=== PATIENT | male | born 1935 | race Caucasian/White ===

== ENCOUNTER → 2016-07-08 | Outpatient (CLI) | payer OTHER ==
[~2016-07-08] MED LIST: ALBU1AER9; ALFU10TA30 PO; BENZ100C6 PO; DICL1GEL28; LANS30CA12 PO; LEVO150T22 PO; OMEG10007 PO; POLY335040 PO; SIMV20TA2 PO; TPRSR/25 PO; TRAM-10 PO; WARF2.5T8 PO; WARF5TAB7 PO
[2016-07-08 12:47] LABS: BASO % 0.6 %; BASO ABS # 0.05 K/uL (0-0.2); COMPLETE YES; EOS % 1.5 %; IG% 0.4 %; LYMPH % 19.4 %; LYMPH ABS # 1.53 K/uL (1.2-3.4); MEAN CELL VOLUME 90.1 fL (80-100); MEAN CORPUSCULAR HEMOGLOBIN 31.6 pg (25-34); MEAN CORPUSCULAR HGB CONC 35.1 g/dl (32-36); MONO % 5.6 %; NEUT % 72.5 %; PLATELET COUNT 178 K/uL (130-400); RED BLOOD COUNT 4.55 M/uL (4.7-6.1)
[2016-07-08 13:07] LABS: ALB/GLOB RATIO 1.1 (0.9-2); ALKALINE PHOSPHATASE 60 U/L (45-117); ALT/SGPT 19 U/L (12-78); AST/SGOT 14 U/L (15-37); BLOOD UREA NITROGEN 14 mg/dl (7-18); CALCIUM 8.7 mg/dl (8.5-10.1); CARBON DIOXIDE 26 mmol/L (21-32); CHLORIDE 106 mmol/L (98-107); GLUCOSE 122 mg/dl (70-99); POTASSIUM 4.1 mmol/L (3.5-5.1); SODIUM 142 mmol/L (136-145)
== END | disposition home or self-care (01) ==
LOC: C.LABBFT 11:00
PROVIDERS: ATTEND Internal Medicine Hematology & Oncology
DX: D69.3 Immune thrombocytopenic purpura (principal)

== ENCOUNTER → 2016-09-02 | Outpatient (CLI) | payer OTHER ==
[~2016-09-02] MED LIST changes: +ACET-1256 PO; +ALBU18002 PO; +ALFU10TA2 PO; -ALFU10TA30 PO; +CMD/25 PO; +ENOX120I SQ; +FINA5TAB PO; +FLUT0.15 NAE; +HYDR-3983 PO; +LVNIS100; +MRLP17 PO; +PHEN-775 PO; +SYN150 PO
[2016-09-02 17:37] LABS: ALT/SGPT 18 U/L (12-78); AST/SGOT 14 U/L (15-37); BLOOD UREA NITROGEN 18 mg/dl (7-18); BUN/CREATININE RATIO 18.2 (10-20); CALCIUM 8.8 mg/dl (8.5-10.1); CARBON DIOXIDE 28 mmol/L (21-32); CHLORIDE 106 mmol/L (98-107); GLUCOSE 93 mg/dl (70-99); POTASSIUM 4.4 mmol/L (3.5-5.1); SODIUM 141 mmol/L (136-145)
[2016-09-02 17:49] LABS: ALB/GLOB RATIO 1.2 (0.9-2); ALKALINE PHOSPHATASE 66 U/L (45-117); CHOLESTEROL 141 mg/dl (0-200); CHOLESTEROL/HDL RATIO 2.9; HDL CHOLESTEROL 49 mg/dl; LDL CHOLESTEROL CALCULATED 59 mg/dl; TRIGLYCERIDES 163 mg/dl (0-150); VERY LOW DENSITY LIPOPROT CALC 33 mg/dl
[2016-09-03 06:14] LABS: ESTIMATED AVERAGE GLUCOSE 114 mg/dl; HA1C FLAG Normal (Normal)
== END | disposition home or self-care (01) ==
LOC: C.LABBFT 13:29
PROVIDERS: ATTEND Internal Medicine
DX: E78.00 Pure hypercholesterolemia, unspecified (principal); R73.01 Impaired fasting glucose; E05.00 Thyrotoxicosis with diffuse goiter without thyrotoxic crisis or storm

== ENCOUNTER → 2016-11-06 | Outpatient (CLI) | payer OTHER ==
[~2016-11-06] MED LIST changes: -ACET-1256 PO; -ALBU18002 PO; -ALFU10TA2 PO; +ALFU10TA30 PO; -CMD/25 PO; -ENOX120I SQ; -FINA5TAB PO; -FLUT0.15 NAE; -HYDR-3983 PO; -LVNIS100; -MRLP17 PO; -PHEN-775 PO; -SYN150 PO
[2016-11-06 12:30] LABS: BASO % 0.5 %; BASO ABS # 0.04 K/uL (0-0.2); COMPLETE YES; EOS % 1.8 %; HEMATOCRIT 42.9 % (42-52); IG% 0.2 %; LYMPH ABS # 1.55 K/uL (1.2-3.4); MEAN CELL VOLUME 92.5 fL (80-100); MEAN CORPUSCULAR HGB CONC 33.6 g/dl (32-36); MEAN PLATELET VOLUME 10.1 fL (7.4-10.4); MONO % 7.5 %; PLATELET COUNT 170 K/uL (130-400); RED BLOOD COUNT 4.64 M/uL (4.7-6.1); WHITE BLOOD COUNT 8.17 K/uL (4.8-10.8)
[2016-11-06 12:49] LABS: ALT/SGPT 20 U/L (12-78); BLOOD UREA NITROGEN 14 mg/dl (7-18); BUN/CREATININE RATIO 14.4 (10-20); CALCIUM 9.2 mg/dl (8.5-10.1); CARBON DIOXIDE 27 mmol/L (21-32); CHLORIDE 107 mmol/L (98-107); GLUCOSE 100 mg/dl (70-99); POTASSIUM 4.2 mmol/L (3.5-5.1); SODIUM 140 mmol/L (136-145)
[2016-11-06 12:52] LABS: ALB/GLOB RATIO 1.1 (0.9-2); ALKALINE PHOSPHATASE 70 U/L (45-117); AST/SGOT 16 U/L (15-37)
== END | disposition home or self-care (01) ==
LOC: C.LABBFT 10:12
PROVIDERS: ATTEND Nurse Practitioner
DX: D69.3 Immune thrombocytopenic purpura (principal)

== ENCOUNTER → 2017-02-10 | Outpatient (CLI) | payer OTHER ==
[2017-02-10 17:38] LABS: BASO % 0.5 %; BASO ABS # 0.05 K/uL (0-0.2); COMPLETE YES; EOS % 2.1 %; HEMATOCRIT 41.1 % (42-52); IG% 0.3 %; LYMPH % 17.7 %; LYMPH ABS # 1.83 K/uL (1.2-3.4); MEAN CELL VOLUME 92.2 fL (80-100); MEAN CORPUSCULAR HEMOGLOBIN 31.6 pg (25-34); MEAN CORPUSCULAR HGB CONC 34.3 g/dl (32-36); MEAN PLATELET VOLUME 9.6 fL (7.4-10.4); MONO % 7.9 %; NEUT % 71.5 %; PLATELET COUNT 217 K/uL (130-400); RED BLOOD COUNT 4.46 M/uL (4.7-6.1); WHITE BLOOD COUNT 10.31 K/uL (4.8-10.8)
[2017-02-10 18:03] LABS: ALT/SGPT 13 U/L (12-78); AST/SGOT 10 U/L (15-37); BLOOD UREA NITROGEN 17 mg/dl (7-18); CALCIUM 9.3 mg/dl (8.5-10.1); CARBON DIOXIDE 27 mmol/L (21-32); CHLORIDE 104 mmol/L (98-107); GLUCOSE 99 mg/dl (70-99); POTASSIUM 4.8 mmol/L (3.5-5.1); SODIUM 138 mmol/L (136-145)
[2017-02-10 18:05] LABS: ALB/GLOB RATIO 0.9 (0.9-2); ALKALINE PHOSPHATASE 79 U/L (45-117)
== END | disposition home or self-care (01) ==
LOC: C.LABBFT 14:51
PROVIDERS: ATTEND Internal Medicine
DX: R60.9 Edema, unspecified (principal)

== ENCOUNTER 2017-02-18 13:16 | Emergency (ER) | payer OTHER ==
[~2017-02-18] VITALS: Ht 180.3 cm; Wt 106.2 kg
[2017-02-18 13:19] VITALS: TEMP 36.6; Ht 180.3 cm; Wt 106.2 kg
[2017-02-18] MEDS ORDERED: ONDANSETRON INJ 2 MG/ML 2 ML VIAL IV STA (13:54)
[2017-02-18] MEDS ORDERED: MoRPHine SULFATE 4 MG/ML 1 ML CARP\\VIAL IV STA (13:54)
[2017-02-18 13:58] LABS: BASO % 0.2 %; BASO ABS # 0.03 K/uL (0-0.2); COMPLETE YES; HEMATOCRIT 38.3 % (42-52); IG% 0.3 %; LYMPH % 11.8 %; LYMPH ABS # 1.44 K/uL (1.2-3.4); MEAN CELL VOLUME 90.5 fL (80-100); MEAN CORPUSCULAR HEMOGLOBIN 31.7 pg (25-34); MEAN PLATELET VOLUME 9.1 fL (7.4-10.4); MONO % 5.9 %; NEUT % 80.8 %; PLATELET COUNT 211 K/uL (130-400); RED BLOOD COUNT 4.23 M/uL (4.7-6.1); WHITE BLOOD COUNT 12.21 K/uL (4.8-10.8)
[2017-02-18 14:08] LABS: URINE APPEARANCE CLEAR (CLEAR); URINE BILIRUBIN NEG (NEG); URINE COLOR YELLOW; URINE NITRITE NEG (NEG); URINE SPECIFIC GRAVITY 1.016 (1.000-1.030); UROBILINOGEN NEG (NEG)
[2017-02-18 14:11] LABS: MANUAL MICROSCOPIC REQUIRED? NO; REVIEW REQ? NO
[2017-02-18 14:15] LABS: BUN/CREATININE RATIO 10.8 (10-20); CALCIUM 8.7 mg/dl (8.5-10.1); CREATININE 1.08 mg/dl (0.60-1.40); POTASSIUM 3.9 mmol/L (3.5-5.1)
--- NOTE | 2017-02-18 14:26 | DIAGNOSTIC IMAGING REPORT ---
CT SCAN OF THE ABDOMEN AND PELVIS WITHOUT CONTRAST CLINICAL HISTORY: Flank pain COMPARISON STUDY: No previous studies for comparison. TECHNIQUE: CT scan of the abdomen and pelvis was performed from the lung bases to the proximal femurs. Images are reviewed in the axial, sagittal, and coronal planes. IV contrast was not administered for this examination. A dose lowering technique was utilized adhering to the principles of ALARA. CT DOSE: FINDINGS: Lower chest: There are nonspecific bibasilar somewhat nodular airspace opacities there are no significant pleural effusions. The heart is enlarged. There is a small pericardial effusion. Liver: There is a 16 mm right lobe hepatic hypodensity likely representing a cyst Gallbladder: Unremarkable. Spleen: Normal in size and attenuation. Pancreas: Unremarkable. Adrenal glands: Unremarkable. Kidneys: There is mild bilateral hydronephrosis and hydroureter, possibly secondary to bladder outlet obstruction and a distended bladder. No calculi are visualized. There is a 13 mm right renal hypodensity likely representing a cyst Bowel: There are no transition zones indicate bowel obstruction. There is pandiverticulosis. There is no acute diverticulitis. There are no findings to indicate acute appendicitis Peritoneum: There is no intraperitoneal free air or abdominal ascites. There is a fat-containing left inguinal hernia. Vasculature: The abdominal aorta is normal in course and caliber. Adenopathy: None. Pelvic viscera: The prostate is enlarged measuring 7 cm transversely. The bladder is distended and there is mild perivesical stranding. Skeletal structures: No destructive osseous lesions are seen. IMPRESSION: 1. Mild bilateral hydronephrosis and hydroureter. No calculi identified 2. Mildly distended urinary bladder. Prostate enlargement. 3. Pandiverticulosis. No evidence of acute diverticulitis 4. Fat-containing left inguinal hernia 5. 16 mm hypodense lesion within the right hepatic lobe likely representing a cyst 6. Bilateral lower lobe nodular airspace opacities. Does this patient have signs or symptoms of pneumonia? Clinical and radiographic follow-up is recommended Electronically signed by: Angelo Ramos M.D. 02/18/2017 2:24 PM Dictated Date/Time: 02/18/2017 2:17 PM
--- NOTE | 2017-02-18 14:27 | DIAGNOSTIC IMAGING REPORT ---
LUMBAR SPINE WITHOUT CLINICAL HISTORY: Lower back pain. Flank pain. Evaluate for fracture. COMPARISON STUDY: Lumbar spine radiograph November 10, 2015. FINDINGS: For purposes of numbering on this exam, the L5-S1 disc space is assigned to axial image 308 of 353. Slight anterolisthesis of L3 on L4 is unchanged since exam of November 10, 2015. There is minimal leftward curvature of the lumbar spine. No acute lumbar spine fracture or suspicious lesion is identified by CT. The central canal and neural foramen are suboptimally assessed given CT technique. Paravertebral soft tissues are unremarkable. Mild multilevel disc space narrowing and osteophytosis is noted with vacuum disc phenomenon at L3-L4. There is suspected moderate central canal stenosis at L3-L4 and L4-L5. IMPRESSION: 1. No acute lumbar spine fracture or subluxation. 2. 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 Suboptimal evaluation of the central canal and neural foramen given CT technique. Suspected moderate central canal stenosis at L3-L4 and L4-L5. Electronically signed by: Mateusz Fisher M.D. 02/18/2017 2:25 PM Dictated Date/Time: 02/18/2017 2:19 PM
[2017-02-18] MEDS ORDERED: LIDOCAINE HCL 2% JELLY 30 ML TUBE EXT ONE (14:56)
[2017-02-18] MEDS ORDERED: FLUT0.15 NAE (15:10)
[2017-02-18] MEDS ORDERED: HYDR-3983 PO (15:10)
[2017-02-18] MEDS ORDERED: ACET-1256 PO (15:10)
[2017-02-18 16:17] LABS: INR 1.1 (0.9-1.1); PROTHROMBIN TIME (PATIENT) 11.9 SECONDS (9.0-12.0)
[2017-02-18 16:58] VITALS: BP 142/85; PULSE 67; O2SAT 95
--- NOTE | 2017-02-18 19:49 | EMERGENCY ROOM VISIT NOTE ---
History Report prepared by Drake: Odin Ruby Under the Supervision of: Dr. Alexandr Lyman M.D. First contact with patient: 13:26 Chief Complaint: URINARY SYMPTOMS Stated Complaint: DIFFICULT URINATION/BACK PAIN Nursing Triage Summary: Pt states he is having painful and difficult urination and severe bilateral back pain. Symptoms since last night. History of Present Illness The patient is a 81 year old male who presents to the Emergency Room with complaints of waxing and waning bilateral lower back pain beginning yesterday. He describes his pain as "sharp". His pain does not radiate. The patient's pain is not worsened with movement. He also complains of urinary symptoms. His urinary symptoms include increased frequency and pain with urination. 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 He denies vomiting, fevers, or diarrhea. He is on Coumadin but stopped taking it 5 days ago because of his procedure. He was supposed to be started today. Source of History: patient Onset: Yesterday Position: back (bilateral lower) Quality: sharp Timing: waxes/wanes Associated Symptoms: + abdominal pain, + urinary symptoms (burning and increased frequency), No fevers, No vomiting, No diarrhea Review of Systems See HPI for pertinent positives & negatives. A total of 10 systems reviewed and were otherwise negative. Past Medical & Surgical Medical Problems: (1) COPD (chronic obstructive pulmonary disease) Family History Patient reports no known family medical history. Social History Smoking Status: Former Smoker Drug Use: none Marital Status: Occupation Status: retired Current/Historical Medications Scheduled Albuterol (Proair Hfa), 2 PUFFS Q4 Alfuzosin Hcl (Uroxatral), 10 MG PO QPM Fish Oil ([place]-3), 1 CAP PO DAILY Fluticasone Propionate (Nasal) (Flonase Allergy Relief), 1 SPRAY ROSINA DAILY Lansoprazole (Prevacid), 30 MG PO BID Levothyroxine (Levothroid), 0.15 MG PO DAILY Metoprolol Succinate (Metoprolol Succinate ER), 25 MG PO DAILY Polyethylene (Miralax Powder Packet), 17 GM PO BID Simvastatin (Zocor), 20 MG PO QPM Warfarin Sod (Jantoven), 2.5 MG PO DAILY Scheduled PRN Acetaminophen (Tylenol), 500 MG PO Q6 PRN for Pain Hydrocodone/Acetaminophen 7.5MG/325MG ([place] 7.5MG/325MG), 1 TAB PO Q6 PRN for Pain Allergies Coded Allergies: No Known Allergies (Verified , 02/18/17) Physical Exam Vital Signs Date Time Temp Pulse Resp B/P (MAP) Pulse Ox O2 Delivery O2 Flow Rate FiO2 02/18/17 16:58 67 18 142/85 95 Room Air 02/18/17 16:33 67 02/18/17 15:57 72 20 137/78 94 Room Air 02/18/17 14:19 44 18 146/92 96 Room Air 02/18/17 13:19 36.6 63 18 154/84 92 Room Air Physical Exam Constitutional: Vital signs reviewed. Eyes: Pupils are equal round reactive to light. Conjunctiva are noninjected. ENT: Pharynx is clear without erythema or exudate. Mucous membranes are moist. Post-surgical changes under tongue to the left side. No bleeding. No signs of infection or drainage. Neck supple without meningeal signs. Respiratory: Clear to auscultation bilaterally. Breath sounds are equal bilaterally. Cardiovascular: Irregularly irregular rhythm. Normal rate. No rubs or gallops. GI: Suprapubic tenderness to palpation. No guarding. Bowel sounds are present. Musculoskeletal: No peripheral edema. No CVA tenderness. No midline tenderness to the thoracic or lumbar spine. Integumentary: No cyanosis. Neurological: The patient is awake and alert. No focal deficits. Psychiatric: Normal affect. Medical Decision & Procedures ER Provider Diagnostic Interpretation: Radiology results as stated below per my review and the radiologist's interpretation: LUMBAR SPINE WITHOUT FINDINGS: For purposes of numbering on this exam, the L5-S1 disc space is assigned to axial image 308 of 353. Slight anterolisthesis of L3 on L4 is unchanged since exam of November 10, 2015. There is minimal leftward curvature of the lumbar spine. No acute lumbar spine fracture or suspicious lesion is identified by CT. The central canal and neural foramen are suboptimally assessed given CT technique. Paravertebral soft tissues are unremarkable. Mild multilevel disc space narrowing and osteophytosis is noted with vacuum disc phenomenon at L3-L4. There is suspected moderate central canal stenosis at L3-L4 and L4-L5. IMPRESSION: 1. No acute lumbar spine fracture or subluxation. 2. 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 Suboptimal evaluation of the central canal and neural foramen given CT technique. Suspected moderate central canal stenosis at L3-L4 and L4-L5. Electronically signed by: Mateusz Fisher M.D. 02/18/2017 2:[address] SCAN OF THE ABDOMEN AND PELVIS WITHOUT CONTRAST FINDINGS: Lower chest: There are nonspecific bibasilar somewhat nodular airspace opacities there are no significant pleural effusions. The heart is enlarged. There is a small pericardial effusion. Liver: There is a 16 mm right lobe hepatic hypodensity likely representing a cyst Gallbladder: Unremarkable. Spleen: Normal in size and attenuation. Pancreas: Unremarkable. Adrenal glands: Unremarkable. Kidneys: There is mild bilateral hydronephrosis and hydroureter, possibly secondary to bladder outlet obstruction and a distended bladder. No calculi are visualized. There is a 13 mm right renal hypodensity likely representing a cyst Bowel: There are no transition zones indicate bowel obstruction. There is pandiverticulosis. There is no acute diverticulitis. There are no findings to indicate acute appendicitis Peritoneum: There is no intraperitoneal free air or abdominal ascites. There is a fat-containing left inguinal hernia. Vasculature: The abdominal aorta is normal in course and caliber. Adenopathy: None. Pelvic viscera: The prostate is enlarged measuring 7 cm transversely. The bladder is distended and there is mild perivesical stranding. Skeletal structures: No destructive osseous lesions are seen. IMPRESSION: 1. Mild bilateral hydronephrosis and hydroureter. No calculi identified 2. Mildly distended urinary bladder. Prostate enlargement. 3. Pandiverticulosis. No evidence of acute diverticulitis 4. Fat-containing left inguinal hernia 5. 16 mm hypodense lesion within the right hepatic lobe likely representing a cyst 6. Bilateral lower lobe nodular airspace opacities. Does this patient have signs or symptoms of pneumonia? Clinical and radiographic follow-up is recommended Electronically signed by: Angelo Ramos M.D. 02/18/2017 2:24 PM Laboratory Results 02/18/17 13:50 Red Blood Count 4.23, Mean Corpuscular Volume 90.5, Mean Corpuscular Hemoglobin 31.7, Mean Corpuscular Hemoglobin Concent 35.0, Mean Platelet Volume 9.1, Neutrophils (%) (Auto) 80.8, Lymphocytes (%) (Auto) 11.8, Monocytes (%) (Auto) 5.9, Eosinophils (%) (Auto) 1.0, Basophils (%) (Auto) 0.2, Neutrophils # (Auto) 9.86, Lymphocytes # (Auto) 1.44, Monocytes # (Auto) 0.72, Eosinophils # (Auto) 0.12, Basophils # (Auto) 0.03 02/18/17 13:50 Test 02/18/17 13:50 White Blood Count 12.21 K/uL (4.8-10.8) Red Blood Count 4.23 M/uL (4.7-6.1) Hemoglobin 13.4 g/dL (14.0-18.0) Hematocrit 38.3 % (42-52) Mean Corpuscular Volume 90.5 fL (80-100) Mean Corpuscular Hemoglobin 31.7 pg (25-34) Mean Corpuscular Hemoglobin Concent 35.0 g/dl (32-36) Platelet Count 211 K/uL (130-400) Mean Platelet Volume 9.1 fL (7.4-10.4) Neutrophils (%) (Auto) 80.8 % Lymphocytes (%) (Auto) 11.8 % Monocytes (%) (Auto) 5.9 % Eosinophils (%) (Auto) 1.0 % Basophils (%) (Auto) 0.2 % Neutrophils # (Auto) 9.86 K/uL (1.4-6.5) Lymphocytes # (Auto) 1.44 K/uL (1.2-3.4) Monocytes # (Auto) 0.72 K/uL (0.11-0.59) Eosinophils # (Auto) 0.12 K/uL (0-0.5) Basophils # (Auto) 0.03 K/uL (0-0.2) RDW Standard Deviation 42.9 fL (36.4-46.3) RDW Coefficient of Variation 13.0 % (11.5-14.5) Immature Granulocyte % (Auto) 0.3 % Immature Granulocyte # (Auto) 0.04 K/uL (0.00-0.02) Prothrombin Time 11.9 SECONDS (9.0-12.0) Prothromb Time International Ratio 1.1 (0.9-1.1) Urine Color YELLOW Urine Appearance CLEAR (CLEAR) Urine pH 5.0 (4.5-7.5) Urine Specific [place] 1.016 (1.000-1.030) Urine Protein NEG (NEG) Urine Glucose (UA) NEG (NEG) Urine Ketones NEG (NEG) Urine Occult Blood NEG (NEG) Urine Nitrite NEG (NEG) Urine Bilirubin NEG (NEG) Urine Urobilinogen NEG (NEG) Urine Leukocyte Esterase NEG (NEG) Anion Gap 7.0 mmol/L (3-11) Est Creatinine Clear Calc Drug Dose 67.6 ml/min Estimated GFR () 74.7 Estimated GFR (Non- 64.5 BUN/Creatinine Ratio 10.8 (10-20) Calcium Level 8.7 mg/dl (8.5-10.1) Total Bilirubin 0.7 mg/dl (0.2-1) Direct Bilirubin 0.1 mg/dl (0-0.2) Aspartate Amino Transf (AST/SGOT) 17 U/L (15-37) Alanine Aminotransferase (ALT/SGPT) 10 U/L (12-78) Alkaline Phosphatase 72 U/L (45-117) Total Protein 7.1 gm/dl (6.4-8.2) Albumin 3.5 gm/dl (3.4-5.0) Lipase 101 U/L (73-393) Laboratory results as reviewed by me. Medications Administered Medications (Trade) Dose Ordered Sig/Meera Route Start Time Stop Time Status Last Admin Dose Admin Morphine Sulfate (MoRPHine SULFATE INJ) 4 mg NOW STAT IV 02/18/17 13:54 02/18/17 13:55 DC 02/18/17 13:59 4 MG Ondansetron HCl (Zofran Inj) 4 mg NOW STAT IV 02/18/17 13:54 02/18/17 13:55 DC 02/18/17 14:00 4 MG Lidocaine HCl (Xylocaine Jelly 2%) 30 ml STK-MED ONCE EXT 02/18/17 14:56 02/18/17 14:57 DC 02/18/17 14:56 30 ML ECG Indication: other (PVC's seen on the monitor) Rate (beats per minute): 68 Rhythm: sinus rhythm Findings: PVC (frequent), RBBB Comparison ECG Date: October 19, 2015 Change: 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 ED Course 1328: The patient was evaluated in room C3. A complete history and physical exam was performed. 1354: The patient is requesting pain medication. Ordered Zofran Inj 4 mg IV, Morphine Sulfate 4 mg IV. 1455: I reassessed the patient. He is having worsening pain. He is only able to urinate small amounts at a time. His bladder scan shows significant urine. The patient notes that he just urinated recently. 1545: I checked in on the patient. He feels a lot better after having a Russell catheter placed. There is some blood noted in the urine in his urine bag. Roughly 600 cc of urine in the bag. The patient states that he is on Coumadin for A-fib, but notes that he does not been taking it for the past five days due to recent surgery. He states that he did not notice any blood in his urine prior to the placement of the catheter. 1656: I reexamined the patient. His urine appears clear. His back pain and abdominal pain are resolved. I discussed his results and the treatment plan with him. He verbalized agreement and understanding. The patient will follow up with his urologist and PCP. I advised him to hold off on taking his Coumadin for an additional day. The patient is ready for discharge. Medical Decision This is an 81-year-old male who presents with bilateral flank pain and dysuria. Differential diagnosis includes kidney stone, UTI, prostatitis, pyelonephritis , lumbar radiculopathy. I did perform a limited focused review of portions of the patient's old chart on the electronic medical record. The patient had blood work eight days ago which was relatively unremarkable. I did evaluate the patient as noted above. IV access was established. I did treat patient with IV morphine and Zofran. I did order and personally review the patient's 12-lead EKG and urinalysis as described above. I did order and review the patient's blood work as noted in the electronic medical record. His white blood cell count is slightly elevated which is a nonspecific finding. I did order a CT of the abdomen and pelvis and lumbar sacral spine. I did review the images myself as well as the radiology report as described above. He does have some incidental findings as discussed above. I did discuss the test results with the patient. He states he has no cold symptoms consistent with pneumonia. He has had no fevers. He is still complaining of significant pain in his back. A bladder scan was performed and showed significant amount of urine in his bladder despite recently urinating. I did order a Russell catheter placed. The nurse did place a Russell catheter and unfortunately this caused some bleeding in his urine. His urine was blood tinged but it cleared up after some time. He did urinate 600 mL of urine and on reevaluation he felt much better. He no longer has any significant pain in his abdomen. It seems likely that his pain was caused by urinary retention. I did recommend close follow up with his doctor and urologist. He was discharged with the Russell catheter in place and a leg bag. He was told to hold off on his Coumadin for another day because of the recent bleeding from the Russell catheter. He will resume it tomorrow. He was discharged in good condition. Medication Reconcilliation Current Medication List: was personally reviewed by me Blood Pressure Screening Patient's blood pressure: Elevated blood pressure Blood pressure disposition: Referred to PCP Impression Primary Impression: Urinary retention Scribe Attestation The scribe's documentation has been prepared under my direct and personally reviewed by me in its entirety. I confirm that the note above accurately reflects all work, treatment, procedures, and medical decision making performed by me. Departure Information Dispostion Home / Self-Care Referrals Tanner Hartman M.D. (PCP) Forms HOME CARE DOCUMENTATION FORM, IMPORTANT VISIT INFORMATION Patient Instructions ED Catheter Care Russell, ED Retention Urinary Male, My [facility] Additional Instructions You have been examined and treated today on an emergency basis only. This is not a substitute for, or an effort to provide, complete comprehensive medical care. It is impossible to recognize and treat all injuries or illnesses in a single emergency department visit. It is therefore important that you follow up closely with your physician and urologist. Call as soon as possible for an appointment. Return for worsening symptoms or if you develop fever, vomiting, or any other concerning symptoms.
[2017-02-20] MEDS ORDERED: SYN150 PO (16:31)
[2017-02-20] MEDS ORDERED: MRLP17 PO (16:31)
[2017-02-20] MEDS ORDERED: ALBU18002 PO (16:31)
== END 2017-02-18 17:49 | disposition home or self-care (01) ==
LOC: C.EDB 13:18 → C.EDC 17:49
DX: R33.9 Retention of urine, unspecified (principal); J44.9 Chronic obstructive pulmonary disease, unspecified; Z87.891 Personal history of nicotine dependence; Z79.899 Other long term (current) drug therapy; Z79.01 Long term (current) use of anticoagulants; I48.91 Unspecified atrial fibrillation

== ENCOUNTER 2017-03-19 07:04 | Day surgery (SDC) | payer OTHER ==
[2017-02-27 15:51] VITALS: BMI 32.0
[~2017-03-19] VITALS: Ht 180.3 cm; Wt 104.5 kg
[~2017-03-19 07:04] MED LIST changes: +ACET-1256 PO; +ALBU18002 PO; -ALBU1AER9; +ALFU10TA2 PO; -ALFU10TA30 PO; -BENZ100C6 PO; -DICL1GEL28; +FLUT0.15 NAE; +LACTATED RINGER'S 1000ML 1,000 ML IV SCH; -LEVO150T22 PO; +MRLP17 PO; -POLY335040 PO; +SYN150 PO; -TRAM-10 PO; -WARF5TAB7 PO
[2017-03-19] MEDS ORDERED: LVNIS100 (07:25)
[2017-03-19 07:28] VITALS: BP 165/84; PULSE 56; TEMP 36.4; O2SAT 95; Ht 180.3 cm; Wt 104.5 kg
[2017-03-19] MEDS ORDERED: CIPROFLOXACIN 500 MG TAB PO SCH (07:30)
[2017-03-19] MEDS ORDERED: HYDROmorphone INJ 1 MG/ML SYR IV PRN (07:45)
[2017-03-19] MEDS ORDERED: ATROPINE SULFATE 0.1 MG/ML 5ML SYR IV PRN (07:45)
[2017-03-19] MEDS ORDERED: EpHEDrine SULFATE INJ 50 MG/ML AMP IV PRN (07:45)
[2017-03-19] MEDS ORDERED: LABETALOL HCL IV 5 MG/ML 20ML IV PRN (07:45)
[2017-03-19] MEDS ORDERED: ONDANSETRON INJ 2 MG/ML 2 ML VIAL IV PRN (07:45)
[2017-03-19] MEDS ORDERED: PHENYLEPHRINE 100MCG/ML 5ML SYR IV PRN (07:45)
[2017-03-19 08:02] LABS: INR 1.2 (0.9-1.1); PARTIAL THROMBOPLASTIN RATIO 1.2; PROTHROMBIN TIME (PATIENT) 13.3 SECONDS (9.0-12.0)
[2017-03-19] MEDS ORDERED: FENTANYL CITRATE INJ 50 MCG/1 ML 2 ML VIAL ONE (08:36)
--- NOTE | 2017-03-19 08:46 | History & Physical Bridge Note ---
H&P Re-Evaluation Bridge Note: I have examined the patient, reviewed the History & Physical and in the interval since the performance of the History & Physical I have noted the following changes of clinical significance: No changes noted
[2017-03-19] MEDS ORDERED: ONDANSETRON INJ 2 MG/ML 2 ML VIAL ONE (09:20)
[2017-03-19] MEDS ORDERED: METOPROLOL TARTRATE 1 MG/ML VIAL ONE (09:20)
[2017-03-19] MEDS ORDERED: LIDOCAINE HCL 2% 2 ML VIAL (20MG/ML) ONE (09:20)
[2017-03-19] MEDS ORDERED: PROPOFOL IV EMULSION 10 MG/ML 20 ML VIAL IV ONE (09:20)
[2017-03-19] MEDS ORDERED: NEOSTIGMINE METHYLSULFATE 5 MG/5 ML SYR ONE (09:32)
[2017-03-19] MEDS: BELLADONNA/OPIUM SUPP 60 MG SUPP PR ONE ×2 (10:00→10:35)
[2017-03-19] MEDS ORDERED: PHENYLEPHRINE 100MCG/ML 5ML SYR ONE (10:10)
[2017-03-19] MEDS ORDERED: BELLADONNA/OPIUM SUPP 60 MG SUPP PR ONE (10:31)
--- NOTE | 2017-03-19 10:48 | [facility] Operative Report ---
Operative Report Operative Date Mar 19, 2017. Pre-Operative Diagnosis Benign Prostatic Hyperplasia with Retention Post-Operative Diagnosis Benign Prostatic Hyperplasia with Retention Procedure(s) Performed Transuretheral Resection Prostate Surgeon Dr. Davey Building Components Designer Surgeon(s) none Estimated Blood Loss 100mL Findings short trilobar enlargement prostate Fluids 900mL Specimens A: Prostate chips Drains 20 fr coude moses Anesthesia LMA Complication(s) None Disposition Recovery Room / PACU Indications recurrent urinary retention with bph failed med therapy Description of Procedure Patient was given general LMA and placed in lithotomy position. His genitals were prepped and draped in sterile fashion. Time out held with team. I placed a 26 fr rigid resectoscope to bladder. The urethra is unremarkable. The prostate is trilobar with kissing lateral lobes. The UOs are normal. I used the thick loop to resect lateral and middle lobes. I spared most of apical tips. I rinsed out all chips and carefully obtained hemostasis with cautery. I left bladder full and removed scope I placed 20 fr coude moses easily. I placed a belladonna and opium suppository for post-op pain. He transferred to recovery under my escort, in stable condition. Plan: Home today with moses Pyridium for dysuria x 3 days to start friday hold lovenox for about 5 days ASA 3 clean contaminated case cipro antibiotic sanitation supervisor I attest to the content of the Intraoperative Record and any orders documented therein. Any exceptions are noted below.
[2017-03-19] MEDS ORDERED: PHEN-775 PO (10:49)
--- NOTE | 2017-03-19 10:50 | Discharge Instructions ---
Discharge Instructions Date of Service Mar 19, 2017. Admission Reason for Admission: Benign Prostatic Hypertrophy W/Retention Discharge Discharge Diagnosis / Problem: bph with urinary retention Discharge Goals Goal(s): Improve function, Improve disease control Activity Recommendations Activity Limitations: as noted below Lifting Limitations: no more than 25 pounds (vor 3 weeks) Exercise/Sports Limitations: none May Resume Sexual Activity: when tolerated Shower/Bathe: no limitations Driving or Machine Use: resume 1 day after discharge . Instructions / Follow-Up Instructions / Follow-Up hold lovenox for 5 days, then resume it and coumadin removed moses on Friday am call office [phone] by noon with any problems Current Hospital Diet Patient's current hospital diet: Discharge Diet Recommended Diet: Regular Diet Fluid Restriction: None Procedures Procedures Performed: Transuretheral Resection Prostate Pending Studies Studies pending at discharge: yes List of pending studies: pathology on prostate chips Medical Emergencies . Who to Call and When: Medical Emergencies: If at any time you feel your situation is an emergency, please call 911 immediately. . Non-Emergent Contact Non-Emergency issues call your: Urologist Call Non-Emergent contact if: temperature is above 100.5, your pain is worsening . . "Provider Documentation" section prepared by Christiana Davey. . VTE Core Measure Inpt VTE Proph given/why not?: SCD's
[2017-03-19] MEDS: FENTANYL CITRATE INJ 50 MCG/1 ML 2 ML VIAL IV PRN ×2 (10:52→10:59)
[2017-03-19] MEDS ORDERED: NURSING VERBAL MED ORDER ONE ×2 (10:58→12:00)
[2017-03-19] MEDS ORDERED: MEPERIDINE HCL 25 MG/ML CARP ONE (11:00)
--- NOTE | 2017-03-19 11:21 | Anesthesiology Progress Note ---
Anesthesia Post Op Note Date & Time Mar 19, 2017 at 11:21 Vital Signs Pain Intensity: 2 Vital Signs Past 12 Hours Date Time Temp Pulse Resp B/P (MAP) Pulse Ox O2 Delivery O2 Flow Rate FiO2 03/19/17 11:10 65 13 131/86 96 Room Air 03/19/17 11:00 66 18 139/82 100 Oxymask 10 03/19/17 10:50 65 16 135/83 99 Oxymask 03/19/17 10:42 36.2 74 15 142/66 95 Oxymask 03/19/17 07:28 36.4 56 16 165/84 (111) 95 Room Air Notes Mental Status: alert / awake / arousable, participated in evaluation Pt Amnestic to Procedure: Yes Nausea / Vomiting: adequately controlled Pain: adequately controlled Airway Patency, RR, SpO2: stable & adequate BP & HR: stable & adequate Hydration State: stable & adequate Anesthetic Complications: no major complications apparent
[2017-03-19 11:30] VITALS: BP 144/77; PULSE 64; TEMP 37; O2SAT 95
[2017-03-19] MEDS ORDERED: ACETAMINOPHEN 325 MG TAB ONE (11:53)
[2017-03-19 12:00] VITALS: BP 160/79; PULSE 64; O2SAT 96
[2017-03-19 12:30] VITALS: BP 130/70; PULSE 51; TEMP 37.1; O2SAT 97
== END 2017-03-19 12:48 | disposition home or self-care (01) ==
LOC: C.ACU 07:04
PROVIDERS: ATTEND Urology
DX: N40.1 Benign prostatic hyperplasia with lower urinary tract symptoms (principal); I48.91 Unspecified atrial fibrillation; I10 Essential (primary) hypertension; J44.9 Chronic obstructive pulmonary disease, unspecified; E66.9 Obesity, unspecified; Z68.32 Body mass index [BMI] 32.0-32.9, adult; Z79.01 Long term (current) use of anticoagulants; Z79.899 Other long term (current) drug therapy; Z90.89 Acquired absence of other organs

== ENCOUNTER 2017-03-29 03:54 | Emergency (ER) | payer OTHER ==
[~2017-03-29] VITALS: Ht 180.3 cm; Wt 99.9 kg
[~2017-03-29 03:54] MED LIST changes: -ALFU10TA2 PO; -LACTATED RINGER'S 1000ML 1,000 ML IV SCH; +PHEN-775 PO; -WARF2.5T8 PO
[2017-03-29 03:57] VITALS: TEMP 36.7; Ht 180.3 cm; Wt 99.9 kg
[2017-03-29] MEDS ORDERED: FINA5TAB PO (04:28)
[2017-03-29] MEDS ORDERED: CMD/25 PO (04:29)
[2017-03-29] MEDS ORDERED: ENOX120I SQ (04:30)
[2017-03-29 04:53] LABS: BASO % 0.6 %; BASO ABS # 0.05 K/uL (0-0.2); COMPLETE YES; IG% 0.6 %; LYMPH % 14.8 %; LYMPH ABS # 1.34 K/uL (1.2-3.4); MEAN CELL VOLUME 91.6 fL (80-100); MEAN CORPUSCULAR HEMOGLOBIN 31.1 pg (25-34); MEAN CORPUSCULAR HGB CONC 33.9 g/dl (32-36); MEAN PLATELET VOLUME 9.1 fL (7.4-10.4); MONO % 6.1 %; NEUT % 74.9 %; PLATELET COUNT 205 K/uL (130-400); RED BLOOD COUNT 4.15 M/uL (4.7-6.1); WHITE BLOOD COUNT 9.04 K/uL (4.8-10.8)
[2017-03-29 05:04] LABS: INR 1.1 (0.9-1.1); PARTIAL THROMBOPLASTIN RATIO 1.1; PROTHROMBIN TIME (PATIENT) 11.4 SECONDS (9.0-12.0)
[2017-03-29 05:09] LABS: CALCIUM 8.7 mg/dl (8.5-10.1); CREATININE 1.14 mg/dl (0.60-1.40); POTASSIUM 4.2 mmol/L (3.5-5.1)
[2017-03-29 05:17] LABS: MANUAL MICROSCOPIC REQUIRED? YES; URINE APPEARANCE CLOUDY (CLEAR); URINE BILIRUBIN NEG (NEG); URINE COLOR RED; URINE NITRITE NEG (NEG); URINE SPECIFIC GRAVITY 1.025 (1.000-1.030); UROBILINOGEN NEG (NEG)
[2017-03-29 05:21] LABS: REVIEW REQ? NO
[2017-03-29 05:35] LABS: URINE RBC >30 /hpf (0-4); URINE WBC >30 /hpf (0-5)
[2017-03-29 05:39] LABS: URINE BACTERIA NEG (NEG)
[2017-03-29 05:40] LABS: ZZUR CULT IF INDIC CLEAN CATCH YES
--- NOTE | 2017-03-29 06:32 | EMERGENCY ROOM VISIT NOTE ---
History First contact with patient: 04:09 Chief Complaint: URINARY SYMPTOMS Stated Complaint: BLOOD IN URINE S/P SURGERY Nursing Triage Summary: pt states he had a TURP completed 03/18, states he had a cath in for 2 days and has been able to urinate without difficulty since then. reports last night around 11pm he though urine appeared "pink." states he began to notice janice blood in urine through the night. states he has "just normal burning" with urination. denies n/v. pt was on coumadin pre procedure, now on coumadin and lovenox shots. History of Present Illness The patient is a 81 year old male who presents to the Emergency Room with complaints of blood in the urine. The patient states that he had a TURP procedure performed [address] Davey. He states that this evening, he noticed blood in his urine. Just prior to arrival, he urinated and states that the urine was very dark with blood. The patient takes Coumadin for atrial fibrillation. He is also on Lovenox at this time. He states there has been no blood in the urine up until now. He has had some burning with urination but states that he was told this was normal after the procedure he had performed. He denies any abdominal pain or back pain. He denies any fevers. Review of Systems A complete 10 point review of systems was reviewed with the patient with pertinent positives and negatives as per history of present illness. All else were negative. Past Medical/Surgical History Medical Problems: (1) COPD (chronic obstructive pulmonary disease) Family History Patient reports no known family medical history. Social History Smoking Status: Former Smoker Drug Use: none Marital Status: Occupation Status: retired Current/Historical Medications Scheduled Enoxaparin (Lovenox), 100 MG SQ DIRECTED Finasteride (Proscar), 5 MG PO DAILY Fish Oil ([place]-3), 1 CAP PO QDL Fluticasone Propionate (Nasal) (Flonase Allergy Relief), 1 SPRAY ROSINA QPM Lansoprazole (Prevacid), 30 MG PO BID Levothyroxine Sodium (Synthroid), 150 MCG PO QAM Metoprolol Succinate (Metoprolol Succinate ER), 25 MG PO QAM Polyethylene (Miralax), 17 GM PO BID Simvastatin (Zocor), 20 MG PO QPM Warfarin Sod (Coumadin), 2.5 MG PO DAILY Scheduled PRN Acetaminophen (Tylenol), 500 MG PO Q6 PRN for Pain Albuterol Sulfate (Proair Respiclick), 2 PUFFS PO Q4 PRN for Shortness of Breath Physical Exam Vital Signs Date Time Temp Pulse Resp B/P (MAP) Pulse Ox O2 Delivery O2 Flow Rate FiO2 03/29/17 06:36 64 18 152/92 94 03/29/17 05:57 65 18 166/90 97 Room Air 03/29/17 03:57 36.7 74 20 154/101 92 Room Air Physical Exam VITALS: Vitals are noted on the nurse's note and reviewed by myself. Vital signs stable. GENERAL: This is an 81-year-old male, in no acute distress, nondiaphoretic, well -developed well-nourished. HEART: Regular rate and rhythm without murmurs gallops or rubs. LUNGS: Clear to auscultation bilaterally without wheezes, rales or rhonchi. ABDOMEN: Positive bowel sounds x 4. Soft, nontender to palpation. NEURO: Patient was alert and oriented to person place and time. Medical Decision & Procedures Laboratory Results 03/29/17 04:41 Red Blood Count 4.15, Mean Corpuscular Volume 91.6, Mean Corpuscular Hemoglobin 31.1, Mean Corpuscular Hemoglobin Concent 33.9, Mean Platelet Volume 9.1, Neutrophils (%) (Auto) 74.9, Lymphocytes (%) (Auto) 14.8, Monocytes (%) (Auto) 6.1, Eosinophils (%) (Auto) 3.0, Basophils (%) (Auto) 0.6, Neutrophils # (Auto) 6.78, Lymphocytes # (Auto) 1.34, Monocytes # (Auto) 0.55, Eosinophils # (Auto) 0.27, Basophils # (Auto) 0.05 03/29/17 04:41 Test 03/29/17 04:25 03/29/17 04:41 Urine Color RED Urine Appearance CLOUDY (CLEAR) Urine pH 6.0 (4.5-7.5) Urine Specific [place] 1.025 (1.000-1.030) Urine Protein 3+ (NEG) Urine Glucose (UA) NEG (NEG) Urine Ketones NEG (NEG) Urine Occult Blood 3+ (NEG) Urine Nitrite NEG (NEG) Urine Bilirubin NEG (NEG) Urine Urobilinogen NEG (NEG) Urine Leukocyte Esterase NEG (NEG) Urine RBC >30 /hpf (0-4) Urine WBC >30 /hpf (0-5) Urine Epithelial Cells 10-20 /lpf (0-5) Urine Bacteria NEG (NEG) White Blood Count 9.04 K/uL (4.8-10.8) Red Blood Count 4.15 M/uL (4.7-6.1) Hemoglobin 12.9 g/dL (14.0-18.0) Hematocrit 38.0 % (42-52) Mean Corpuscular Volume 91.6 fL (80-100) Mean Corpuscular Hemoglobin 31.1 pg (25-34) Mean Corpuscular Hemoglobin Concent 33.9 g/dl (32-36) Platelet Count 205 K/uL (130-400) Mean Platelet Volume 9.1 fL (7.4-10.4) Neutrophils (%) (Auto) 74.9 % Lymphocytes (%) (Auto) 14.8 % Monocytes (%) (Auto) 6.1 % Eosinophils (%) (Auto) 3.0 % Basophils (%) (Auto) 0.6 % Neutrophils # (Auto) 6.78 K/uL (1.4-6.5) Lymphocytes # (Auto) 1.34 K/uL (1.2-3.4) Monocytes # (Auto) 0.55 K/uL (0.11-0.59) Eosinophils # (Auto) 0.27 K/uL (0-0.5) Basophils # (Auto) 0.05 K/uL (0-0.2) RDW Standard Deviation 43.9 fL (36.4-46.3) RDW Coefficient of Variation 13.4 % (11.5-14.5) Immature Granulocyte % (Auto) 0.6 % Immature Granulocyte # (Auto) 0.05 K/uL (0.00-0.02) Prothrombin Time 11.4 SECONDS (9.0-12.0) Prothromb Time International Ratio 1.1 (0.9-1.1) Activated Partial Thromboplast Time 28.8 SECONDS (21.0-31.0) Partial Thromboplastin Ratio 1.1 Anion Gap 6.0 mmol/L (3-11) Est Creatinine Clear Calc Drug Dose 62.2 ml/min Estimated GFR () 70.0 Estimated GFR (Non- 60.4 BUN/Creatinine Ratio 15.0 (10-20) Calcium Level 8.7 mg/dl (8.5-10.1) ED Course The patient was evaluated as above. Labs were drawn and IV access was obtained. Case was discussed with Dr. Ballesteros of urology. He recommended performing a bladder scan to ensure that the patient was not retaining urine and discharge the patient to follow-up with Dr. Davey on Friday. Bladder scan showed a very small amount of urine within the bladder. Discharge instructions were reviewed with the patient. The patient verbalized understanding of my assessment and treatment plan and was discharged home in good condition. Medical Decision Differential diagnosis includes postoperative hematuria, supratherapeutic INR, urinary tract infection, among others. The patient is an 81-year-old male who presents today complaining of blood in his urine. The patient had a TURP procedure 10 days ago. Urinalysis showed 3+ blood without convincing evidence of infection. Culture will be obtained and is pending. INR was found to be 1.1. Creatinine is within normal limits. No leukocytosis. The case was discussed with the on-call urologist, who stated this can be normal for this patient and recommended having the patient follow up with urology on Friday. He did request a bladder scan to ensure that the patient was not in urinary retention. This was performed and showed a small amount of urine within the bladder. The patient will call his urologist first thing Friday morning. He will return for any worsening symptoms. The patient's case was reviewed with Dr. Cobian, ED attending physician, who agreed with my assessment and treatment plan. Based on the patient's presentation and work up, I feel the patient is stable for outpatient treatment. The patient was educated to return to the emergency department for any worsening of their current condition or new/concerning symptoms. He will follow up with urology. Medication Reconcilliation Current Medication List: was personally reviewed by me Blood Pressure Screening Patient's blood pressure: Elevated blood pressure Blood pressure disposition: Elevated BP felt to be situational Impression Primary Impression: Hematuria Departure Information Dispostion Home / Self-Care Condition GOOD Referrals Tanner Hartman M.D. (PCP) Christiana Davey MD Patient Instructions My [facility] Additional Instructions Follow-up with your urologist on Friday. Follow-up with your primary care provider regarding your Coumadin and Lovenox. Return here for any new/concerning symptoms. Problem Qualifiers Primary Impression: Hematuria Hematuria type: gross Qualified Codes: R31.0 - Gross hematuria
[2017-03-29 06:36] VITALS: BP 152/92; PULSE 64; O2SAT 94
== END 2017-03-29 06:36 | disposition home or self-care (01) ==
LOC: C.EDB 03:55 → C.EDA 06:36
DX: R31.0 Gross hematuria (principal); I48.91 Unspecified atrial fibrillation; J44.9 Chronic obstructive pulmonary disease, unspecified; Z87.891 Personal history of nicotine dependence; Z90.79 Acquired absence of other genital organ(s); Z79.01 Long term (current) use of anticoagulants

== ENCOUNTER → 2017-04-08 | Outpatient (CLI) | payer OTHER ==
[~2017-04-08] MED LIST changes: +CMD/25 PO; +ENOX120I SQ; +FINA5TAB PO; -PHEN-775 PO
[2017-04-08 12:33] LABS: BLOOD UREA NITROGEN 16 mg/dl (7-18); BUN/CREATININE RATIO 13.9 (10-20); CALCIUM 8.9 mg/dl (8.5-10.1); CARBON DIOXIDE 29 mmol/L (21-32); CHLORIDE 104 mmol/L (98-107); CREATININE 1.13 mg/dl (0.60-1.40); GLUCOSE 101 mg/dl (70-99); MAGNESIUM 2.2 mg/dl (1.8-2.4); PHOSPHORUS 2.1 mg/dl (2.5-4.9); POTASSIUM 4.2 mmol/L (3.5-5.1); SODIUM 136 mmol/L (136-145)
== END | disposition home or self-care (01) ==
LOC: C.LABBFT 09:56
PROVIDERS: ATTEND Internal Medicine
DX: M62.838 Other muscle spasm (principal)

== ENCOUNTER → 2017-05-12 | Outpatient (CLI) | payer OTHER ==
[2017-05-12 12:32] LABS: BASO % 0.3 %; BASO ABS # 0.03 K/uL (0-0.2); EOS ABS # 0.09 K/uL (0-0.5); HEMATOCRIT 42.8 % (42-52); HEMOGLOBIN 14.6 g/dL (14.0-18.0); IG# 0.03 K/uL (0.00-0.02); LYMPH % 19.4 %; LYMPH ABS # 1.77 K/uL (1.2-3.4); MEAN CELL VOLUME 91.3 fL (80-100); MEAN CORPUSCULAR HEMOGLOBIN 31.1 pg (25-34); MEAN CORPUSCULAR HGB CONC 34.1 g/dl (32-36); MEAN PLATELET VOLUME 9.8 fL (7.4-10.4); MONO % 7.3 %; MONO ABS # 0.67 K/uL (0.11-0.59); NEUT % 71.7 %; NEUT ABS # 6.54 K/uL (1.4-6.5); PLATELET COUNT 221 K/uL (130-400); RED CELL DISTRIBUTION WIDTH CV 14.1 % (11.5-14.5); RED CELL DISTRIBUTION WIDTH SD 46.9 fL (36.4-46.3); WHITE BLOOD COUNT 9.13 K/uL (4.8-10.8)
[2017-05-12 12:34] LABS: ALBUMIN 3.5 gm/dl (3.4-5.0); ALT/SGPT 14 U/L (12-78); AST/SGOT 16 U/L (15-37); BLOOD UREA NITROGEN 15 mg/dl (7-18); CALCIUM 8.9 mg/dl (8.5-10.1); CARBON DIOXIDE 29 mmol/L (21-32); CREATININE 1.03 mg/dl (0.60-1.40); GLUCOSE 89 mg/dl (70-99); POTASSIUM 4.3 mmol/L (3.5-5.1); SODIUM 136 mmol/L (136-145)
[2017-05-12 12:37] LABS: ALKALINE PHOSPHATASE 68 U/L (45-117); TOTAL PROTEIN 6.9 gm/dl (6.4-8.2)
== END | disposition home or self-care (01) ==
LOC: C.LABBFT 09:57
PROVIDERS: ATTEND Internal Medicine Hematology & Oncology
DX: M62.838 Other muscle spasm (principal); D69.3 Immune thrombocytopenic purpura

== ENCOUNTER → 2017-06-04 | Outpatient (CLI) | payer OTHER ==
[~2017-06-04] MED LIST changes: +CMD5 PO; +DTR/5 PO; +POTA99TA PO
== END | disposition home or self-care (01) ==
LOC: C.LABBFT 10:18
PROVIDERS: ATTEND Internal Medicine
DX: M62.838 Other muscle spasm (principal)

== ENCOUNTER → 2017-06-16 | Day surgery (SDC) | payer OTHER ==
[2017-06-04 13:26] VITALS: Ht 181.6 cm; Wt 100.0 kg
[~2017-06-16] VITALS: Ht 181.6 cm; Wt 100.0 kg
[~2017-06-16] MED LIST changes: -ACET-1256 PO; -ENOX120I SQ; -FINA5TAB PO; +LIDOCAINE HCL 2% 2 ML VIAL (20MG/ML) ONE; +PROPOFOL IV EMULSION 10 MG/ML 20 ML VIAL IV ONE; +SODIUM CHLORIDE 0.9% 500ML 500 ML IV ONE
--- NOTE | 2017-06-16 09:47 | Endo History and Physical ---
History & Physical Date of Service: Jun 16, 2017. Chief Complaint: History of colon polyps. Referring Physician: Dr. Hartman History of Present Illness 82 yo CM who presents for colonoscopy secondary to history of colon polyps. Past Medical History Reflux, High Cholesterol, Hypertension Past Surgical History Hx Cardiac Surgery: No Hx Internal Defibrillator: No Hx Pacemaker: No Hx Abdominal Surgery: Yes (APPY, ABDOMINAL HERNIA) Hx Post-Op Nausea and Vomiting: No Hx Cancer Surgery: No Hx Thoracic Surgery: No Hx Orthopedic: No Hx Urinary Tract Surgery: Yes (CIRCUMCISION, TURP) Family History Colon CA Social History Smoking Status: Former Smoker Hx Substance Use: No Hx Alcohol Use: Yes (OCCASIONALLY) Allergies Coded Allergies: No Known Allergies (Verified , 06/16/17) Current Medications Reported Home Medications Medications Dose Route/Sig Max Daily Dose Days Date Category Coumadin (Warfarin Sod) 5 Mg Tab 1 Tab PO WK 06/04/17 Reported Potassium 99 Mg Tab 1 Tab PO QPM 06/04/17 Reported Ditropan (Oxybutynin Chloride) 5 Mg Tab 5 Mg PO BID 06/04/17 Reported Coumadin (Warfarin Sod) 2.5 Mg Tab 2.5 Mg PO 6XWK 03/29/17 Reported Proair Respiclick (Albuterol Sulfate) 108 Mcg/Act Aer 2 Puffs PO Q4 PRN 02/20/17 Reported Miralax (Polyethylene) 17 Gm Pow 17 Gm PO BID 02/20/17 Reported Synthroid (Levothyroxine Sodium) 150 Mcg Tab 150 Mcg PO QAM 02/20/17 Reported Flonase Allergy Relief (Fluticasone Propionate (Nasal)) 50 Mcg/Act Spr 1 [place] ROSINA QPM PRN 02/18/17 Reported Metoprolol Succinate ER (Metoprolol Succinate) 25 Mg Tabcr 25 Mg PO QAM 11/10/15 Reported [place]-3 (Fish Oil) 1 Ea Cap 1 Cap PO QDL 01/27/15 Reported Zocor (Simvastatin) 20 Mg Tab 20 Mg PO QPM 08/05/12 Reported Prevacid (Lansoprazole) 30 Mg Capcr 30 Mg PO BID 08/05/12 Reported Vital Signs Weight (Kilograms): 100 Height (Feet): 5 Height (Inches): 11.5 Physical Exam General Appearance: WD/WN, no apparent distress Respiratory/Chest: Auscultation: breath sounds normal Cardiovascular: Heart Auscultation: RRR Abdomen: Bowel Sounds: normal Inspection & Palpation: soft, non-distended, no tenderness, guarding & rebound Assessment and Plan Assessment: 82 yo CM who presents for colonoscopy secondary to history of colon polyps. Plan: Proceed with colonoscopy.
[2017-06-16 09:59] VITALS: TEMP 36.6
--- NOTE | 2017-06-16 10:34 | Discharge Instructions ---
Endoscopy Patient Instructions Date / Procedure(s) Performed Jun 16, 2017. Colonoscopy Allergy Information Coded Allergies: No Known Allergies (Verified , 06/16/17) Discharge Date / Findings Jun 16, 2017. Colon polyps Diverticulosis Internal hemorrhoids Medication Instructions Stopped Medication(s): COUMADIN 2.5MG 06/12/17, COUMADIN 5MG 06/09/17 OK to resume all medications today as prescribed Reported Home Medications Medications Dose Route/Sig Max Daily Dose Days Date Category Coumadin (Warfarin Sod) 5 Mg Tab 1 Tab PO WK 06/04/17 Reported Potassium 99 Mg Tab 1 Tab PO QPM 06/04/17 Reported Ditropan (Oxybutynin Chloride) 5 Mg Tab 5 Mg PO BID 06/04/17 Reported Coumadin (Warfarin Sod) 2.5 Mg Tab 2.5 Mg PO 6XWK 03/29/17 Reported Proair Respiclick (Albuterol Sulfate) 108 Mcg/Act Aer 2 Puffs PO Q4 PRN 02/20/17 Reported Miralax (Polyethylene) 17 Gm Pow 17 Gm PO BID 02/20/17 Reported Synthroid (Levothyroxine Sodium) 150 Mcg Tab 150 Mcg PO QAM 02/20/17 Reported Flonase Allergy Relief (Fluticasone Propionate (Nasal)) 50 Mcg/Act Spr 1 [place] ROSINA QPM PRN 02/18/17 Reported Metoprolol Succinate ER (Metoprolol Succinate) 25 Mg Tabcr 25 Mg PO QAM 11/10/15 Reported [place]-3 (Fish Oil) 1 Ea Cap 1 Cap PO QDL 01/27/15 Reported Zocor (Simvastatin) 20 Mg Tab 20 Mg PO QPM 08/05/12 Reported Prevacid (Lansoprazole) 30 Mg Capcr 30 Mg PO BID 08/05/12 Reported Provider Instructions Activity Restrictions - No exercising or heavy lifting for 24 hours. - Do not drink alcohol the day of the procedure. - Do not drive a car or operate machinery until the day after the procedure. - Do not make any important decisions or sign important papers in 24 hours after the procedure. Following Day: - Return to full activity which may include returning to work/school. Diet Start your diet with liquids and light foods (jello, soup, juice, toast). Then eat your usual diet if not nauseated. Treatment For Common After Affects For mild abdominal pain, bloating, or excessive gas: - Rest - Eat lightly - Lie on right side Follow-Up Information Follow-up with DR KRISHNA as scheduled Anesthesia Information What You Should Know You have had a procedure that required some medicine to reduce anxiety and discomfort. This treatment is called moderate sedation. After receiving the treatment, you may be sleepy, but you will be able to breathe on your own. The effects of the treatment may last for several hours. Follow these instructions along with Activity/Diet recommendations noted above: * Do NOT do anything where dizziness or clumsiness would be dangerous. * Rest quietly at home today, then you can be up and about tomorrow. * Have a responsible person stay with you the rest of today. * You may have had an I.V. today. If so, you may take the dressing off later today. Recommendations Call your doctor if: * Trouble breathing * Continuous vomiting for more than 24 hours * Temperature above 101 degrees * Severe abdominal pain or bloating * Pain not relieved by pain medicine ordered * There is increased drainage or redness from any incision * A large amount of rectal bleeding greater than 2-3 tablespoons. (If you had a polyp/s removed or have hemorrhoids, a small amount of blood - from the rectum is to be expected.) * You have any unanswered questions or concerns. IN THE EVENT OF A SERIOUS EMERGENCY, GO TO THE NEAREST EMERGENCY ROOM Your discharge instructions were prepared by provider Prasanna Jimenez. Patient Instructions Signature Page Gallo Gil Patient (or Guardian) Signature/Date: I have read and understand the instructions given to me by my caregivers. Caregiver/RN/Doctor Signature/Date: The above-named patient and/or guardian has received patient instructions on this date. + Original Patient Signature Page (only) stays with chart. Please make copy for patient.
--- NOTE | 2017-06-16 10:43 | GI REPORT ---
Procedure Date: 06/16/2017 9:53 AM Procedure: Colonoscopy Indications: High risk colon cancer surveillance: Personal history of colonic polyps Medicines: Monitored Anesthesia Care Complications: No immediate complications. Estimated Blood Loss: Estimated blood loss: none. Procedure: Pre-Anesthesia Assessment: - Prior to the procedure, a History and Physical was performed, and patient medications and allergies were reviewed. The patient's tolerance of previous anesthesia was also reviewed. The risks and benefits of the procedure and the sedation options and risks were discussed with the patient. All questions were answered, and informed consent was obtained. Prior Anticoagulants: The patient has taken Coumadin (warfarin), last dose was 4 days prior to procedure. ASA Grade Assessment: III - A patient with severe systemic disease. After reviewing the risks and benefits, the patient was deemed in satisfactory condition to undergo the procedure. After I obtained informed consent, the scope was passed under direct vision. Throughout the procedure, the patient's blood pressure, pulse, and oxygen saturations were monitored continuously. The scope was introduced through the anus and advanced to the terminal ileum. The colonoscopy was performed without difficulty. The patient tolerated the procedure well. The quality of the bowel preparation was good. The terminal ileum, ileocecal valve, appendiceal orifice, and rectum were photographed. Findings: The perianal and digital rectal examinations were normal. Five sessile polyps were found in the sigmoid colon. The polyps were 3 to 5 mm in size. These polyps were removed with a hot snare. Resection and retrieval were complete. Multiple small-mouthed diverticula were found in the sigmoid colon. Non-bleeding internal hemorrhoids were found during retroflexion. The hemorrhoids were small. Impression: - Five 3 to 5 mm polyps in the sigmoid colon, removed with a hot snare. Resected and retrieved. - Diverticulosis in the sigmoid colon. - Non-bleeding internal hemorrhoids. Recommendation: - Resume previous diet. - Continue present medications. - Repeat colonoscopy for surveillance based on pathology results. - Return to primary care physician as previously scheduled. Prasanna Jimenez DO 06/16/2017 10:42:57 AM This report has been signed electronically. Note Initiated On: 06/16/2017 9:53 AM I attest to the content of the Intraoperative Record and orders documented therein, exceptions below
--- NOTE | 2017-06-16 10:55 | Anesthesiology Progress Note ---
Anesthesia Post Op Note Date & Time Jun 16, 2017 at 10:55 Vital Signs Pain Intensity: 0 Vital Signs Past 12 Hours Date Time Temp Pulse Resp B/P (MAP) Pulse Ox O2 Delivery O2 Flow Rate FiO2 06/16/17 10:45 45 18 131/95 (107) 96 Room Air 06/16/17 10:30 50 16 121/76 (91) 97 Room Air 06/16/17 09:59 36.6 57 20 135/87 (103) 97 Room Air Notes Mental Status: alert / awake / arousable, participated in evaluation Pt Amnestic to Procedure: Yes Nausea / Vomiting: adequately controlled Pain: adequately controlled Airway Patency, RR, SpO2: stable & adequate BP & HR: stable & adequate Hydration State: stable & adequate Anesthetic Complications: no major complications apparent
[2017-06-16 11:00] VITALS: BP 156/86; PULSE 46; O2SAT 97
== END | disposition home or self-care (01) ==
LOC: C.GI 09:21
PROVIDERS: ATTEND Internal Medicine
DX: Z12.11 Encounter for screening for malignant neoplasm of colon (principal); D12.5 Benign neoplasm of sigmoid colon; K57.30 Diverticulosis of large intestine without perforation or abscess without bleeding; K64.8 Other hemorrhoids; Z86.010 Personal history of colon polyps; I48.91 Unspecified atrial fibrillation; J44.9 Chronic obstructive pulmonary disease, unspecified; E05.00 Thyrotoxicosis with diffuse goiter without thyrotoxic crisis or storm; M19.90 Unspecified osteoarthritis, unspecified site; Z98.890 Other specified postprocedural states; I10 Essential (primary) hypertension; Z90.89 Acquired absence of other organs; Z79.899 Other long term (current) drug therapy; Z87.891 Personal history of nicotine dependence; Z79.01 Long term (current) use of anticoagulants; Z80.0 Family history of malignant neoplasm of digestive organs

== ENCOUNTER → 2017-06-23 | Outpatient (CLI) | payer OTHER ==
[~2017-06-23] MED LIST changes: -LIDOCAINE HCL 2% 2 ML VIAL (20MG/ML) ONE; -PROPOFOL IV EMULSION 10 MG/ML 20 ML VIAL IV ONE; -SODIUM CHLORIDE 0.9% 500ML 500 ML IV ONE
[2017-06-23 12:40] LABS: BASO % 0.9 %; BASO ABS # 0.07 K/uL (0-0.2); EOS % 2.1 %; EOS ABS # 0.16 K/uL (0-0.5); HEMATOCRIT 43.4 % (42-52); HEMOGLOBIN 15.1 g/dL (14.0-18.0); IG# 0.03 K/uL (0.00-0.02); LYMPH ABS # 1.71 K/uL (1.2-3.4); MEAN CELL VOLUME 90.2 fL (80-100); MEAN CORPUSCULAR HEMOGLOBIN 31.4 pg (25-34); MEAN CORPUSCULAR HGB CONC 34.8 g/dl (32-36); MEAN PLATELET VOLUME 9.5 fL (7.4-10.4); MONO % 6.9 %; MONO ABS # 0.54 K/uL (0.11-0.59); NEUT % 67.7 %; NEUT ABS # 5.26 K/uL (1.4-6.5); PLATELET COUNT 201 K/uL (130-400); RED CELL DISTRIBUTION WIDTH CV 14.1 % (11.5-14.5); RED CELL DISTRIBUTION WIDTH SD 46.7 fL (36.4-46.3); WHITE BLOOD COUNT 7.77 K/uL (4.8-10.8)
[2017-06-23 13:02] LABS: HEMOGLOBIN A1C 5.5 % (4.5-5.6)
[2017-06-23 14:18] LABS: ALBUMIN 3.6 gm/dl (3.4-5.0); ALKALINE PHOSPHATASE 64 U/L (45-117); ALT/SGPT 14 U/L (12-78); AST/SGOT 12 U/L (15-37); BLOOD UREA NITROGEN 13 mg/dl (7-18); CALCIUM 8.9 mg/dl (8.5-10.1); CARBON DIOXIDE 29 mmol/L (21-32); CHOLESTEROL 201 mg/dl (0-200); GLUCOSE 83 mg/dl (70-99); LDL CHOLESTEROL CALCULATED 125 mg/dl; POTASSIUM 4.3 mmol/L (3.5-5.1); SODIUM 140 mmol/L (136-145)
== END | disposition home or self-care (01) ==
LOC: C.LABBFT 10:35
PROVIDERS: ATTEND Internal Medicine
DX: E78.00 Pure hypercholesterolemia, unspecified (principal); R73.01 Impaired fasting glucose; I48.91 Unspecified atrial fibrillation; E03.2 Hypothyroidism due to medicaments and other exogenous substances; D69.6 Thrombocytopenia, unspecified

== ENCOUNTER 2017-07-29 17:08 | Emergency (ER) | payer OTHER ==
[~2017-07-29] VITALS: Ht 182.9 cm; Wt 100.4 kg
[~2017-07-29 17:08] MED LIST changes: -CMD/25 PO
[2017-07-29 17:14] VITALS: Ht 182.9 cm; Wt 100.4 kg
[2017-07-29] MEDS ORDERED: SILVER NITR/POTASSIUM NITRATE APPLICATOR EXT STA (17:28)
[2017-07-29] MEDS ORDERED: OXYMETAZOLINE HCL 0.05% NA SPR 15 ML BTL STA (17:28)
[2017-07-29] MEDS ORDERED: GELATIN SPONGE 12-7MM EXT STA (17:58)
--- NOTE | 2017-07-29 19:11 | EMERGENCY ROOM VISIT NOTE ---
History First contact with patient: 17:16 Chief Complaint: NOSE BLEED (MINOR) Stated Complaint: NOSE BLEED, ON BLOOD THINNERS History of Present Illness The patient is a 82 year old male who presents to the Emergency Room with complaints of "nosebleed, on blood thinners" the patient states that he is on Coumadin for A. fib. He states that earlier today he was taken out and then got up and went to the kitchen and developed a nosebleed from the right nostril. Then came out of both nostrils. He came here for evaluation. He states that it was bleeding quite rapidly. He notes that his last INR was around 2.0 a week and a half ago. He denies any pain or trauma. Review of Systems A complete 6-point Review of Systems was discussed with the patient, with pertinent positives and negatives listed in the History of Present Illness. All remaining Review of Systems questions can be considered negative unless otherwise specified. Past Medical/Surgical History Medical Problems: (1) COPD (chronic obstructive pulmonary disease) Family History Patient reports no known family medical history. Social History Smoking Status: Former Smoker Drug Use: none Marital Status: Occupation Status: retired Current/Historical Medications Scheduled Amoxicillin (Amoxicillin), 500 MG PO TID Fish Oil ([place]-3), 1 CAP PO QDL Lansoprazole (Prevacid), 30 MG PO BID Levothyroxine Sodium (Synthroid), 150 MCG PO QAM Metoprolol Succinate (Metoprolol Succinate ER), 25 MG PO QAM Oxybutynin Chloride (Ditropan), 5 MG PO BID Polyethylene (Miralax), 17 GM PO BID Potassium (Potassium), 1 TAB PO QPM Simvastatin (Zocor), 20 MG PO QPM Warfarin Sod (Coumadin), 2.5 MG PO 6XWK Warfarin Sod (Coumadin), 1 TAB PO WK Scheduled PRN Albuterol Sulfate (Proair Respiclick), 2 PUFFS PO Q4 PRN for Shortness of Breath Fluticasone Propionate (Nasal) (Flonase Allergy Relief), 1 SPRAY ROSINA QPM PRN for PRN Physical Exam Vital Signs Date Time Temp Pulse Resp B/P (MAP) Pulse Ox O2 Delivery O2 Flow Rate FiO2 07/29/17 19:22 75 16 134/76 98 07/29/17 17:14 63 20 156/95 95 Room Air Physical Exam VITAL SIGNS - Vital signs and nursing notes were reviewed. Stable. GENERAL - 82-year-old male appearing his stated age who is in no acute distress. Communicates well with provider and answers questions appropriately. SKIN - Without rashes. No petechial rashes. HEAD - NC/AT. EYES - Sclera anicteric. No hyphema. EARS - No deformities of external structures noted on gross examination bilaterally. No blood from the external canals NOSE - Midline and without cyanosis. Right-sided epistaxis noted. Small offending vessel in the right naris distally overlying the right septal region. Dry blood in the left nostril. MOUTH/OROPHARYNX - Without perioral cyanosis. Minimal blood in the posterior pharynx. No active hemorrhaging. Medical Decision & Procedures Laboratory Results Test 07/29/17 17:34 Bedside Prothrombin Time INR 3.7 (0.9-1.1) Medications Administered Medications (Trade) Dose Ordered Sig/Meera Route Start Time Stop Time Status Last Admin Dose Admin Oxymetazoline HCl (Afrin 0.05% Nasal [place]) 1 sprays NOW STAT NA 07/29/17 17:28 07/29/17 17:31 DC 07/29/17 17:28 1 SPRAYS Silver Nitrate/ Potassium Nitrate (Silver Nitrate Applicators) 1 appl NOW STAT EXT 07/29/17 17:28 07/29/17 17:31 DC 07/29/17 17:28 1 APPL Medical Decision Patient was seen and evaluated as above in room D4. He presents to us today with epistaxis. He is on Coumadin. Bedside INR 3.7. Review was performed of nursing notes and vital signs. After obtaining a thorough history and physical examination the above work up was performed. I did attempt to suction and use Afrin and a clamp to the nosebleed was identified in the right nostril overlying the septal region. It was anterior and distal. This was without success. I discussed this with the attending physician. Recommendation was to use Gelfoam/pack the nose if this persists. I then placed a small Gelfoam pieces to this. (NO SILVER NITRATE/ CAUTERY WAS USED) This was without success. I then used a 4.5 rapid Rhino. This was with good hemostasis. Patient was evaluated by the attending physician. Minimal blood loss. He is to follow with his family doctor and return in 2 days for repeat INR as well as removal of packing. He will be placed upon amoxicillin. He is to potentially follow up with ENT if he continues to have intermittent nosebleeds. He appears stable for outpatient management. He is to hold his Coumadin until he is seen on here in the emergency department. The patient was educated upon management, had questions answered prior to discharge, and was discharged home in good condition. Case was discussed with the attending physician. I attest that I have personally reviewed the patient medication list. I attest that I have reviewed the patient's blood pressure and it was found to be elevated In the evaluation and treatment of this patient the following differential diagnoses were entertained: Anterior epistaxis, posterior epistaxis, supratherapeutic Coumadin. Impression Primary Impression: Epistaxis Departure Information Dispostion Home / Self-Care Condition GOOD Prescriptions Amoxicillin (Amoxicillin) 500 Mg Cap 500 MG PO TID for 5 Days, #15 TABS Prov: Sha Rios, ANAID 07/29/17 Referrals Tanner Hartman M.D. (PCP) Kurt Tomlin MD Patient Instructions My [facility] Additional Instructions You have been treated in the Emergency Department today for your Nose Bleed ( Epistaxis). Leave the packing in your nose until you return to the Emergency Department to have it removed by a Healthcare Provider. It is dangerous to remove this packing and should NOT be attempted at home (2cc of air were placed into the balloon) Do NOT blow your nose for the next few days. This can result in recurrence of your nosebleed. You should consider using a humidifier to help moisten the air and decrease instances of nosebleeds. You can use [id number] saline nasal sprays to help moisten the nasal mucosa and decrease instances of nosebleeds. As with any trip to the Emergency Department, you should follow-up with your Primary Care Provider from today's visit. Hold your Coumadin for 2 days until you are seen here to have this removed . An INR should be repeated at that time. You may need to follow-up with ear nose and throat. Return to the emergency department if your symptoms persist despite treatment plan outlined above or if the following symptoms occur: uncontrollable nosebleed , dizziness, lightheadedness, pre-syncope, or re-bleed. Please return with any new/concerning symptoms.
[2017-07-29] MEDS ORDERED: AMX500 PO (19:14)
[2017-07-29 19:22] VITALS: BP 134/76; PULSE 75; O2SAT 98
--- NOTE | 2017-07-29 22:50 | EMERGENCY ROOM VISIT NOTE ---
ED Visit Note First contact with patient: 17:16 I have personally evaluated this patient examined her and reviewed the pertinent labs and data. I have discussed the case with Sha Rios, the physician exceptional children teacher assistant and agree with the plan. Please refer to the PA note. This patient comes in with a right anterior nosebleed. Prior to my exam, Sha has placed a Rhino Rocket on the right nares and my exam the patient appears comfortable the patient has no bleeding. He is resting comfortably. He is on Coumadin and we will have him hold this the next 2 days he should return in 2 days for removal or follow-up with his regular doctor or a ENT specialist. We will also put him on antibiotics.
[2017-07-31] MEDS ORDERED: CMD/25 PO (04:29)
== END 2017-07-29 19:23 | disposition home or self-care (01) ==
LOC: C.EDB 17:09 → C.EDD 19:23
DX: R04.0 Epistaxis (principal); J44.9 Chronic obstructive pulmonary disease, unspecified; Z79.01 Long term (current) use of anticoagulants; Z87.891 Personal history of nicotine dependence

== ENCOUNTER 2017-07-31 13:06 | Emergency (ER) | payer OTHER ==
[~2017-07-31] VITALS: Ht 182.9 cm; Wt 99.5 kg
[~2017-07-31 13:06] MED LIST changes: +AMX500 PO; +CMD/25 PO
[2017-07-31 13:13] VITALS: TEMP 36.4; Ht 182.9 cm; Wt 99.5 kg
[2017-07-31 14:03] LABS: INR 2.1 (0.9-1.1)
[2017-07-31 14:07] VITALS: BP 142/80; PULSE 80; O2SAT 99
--- NOTE | 2017-07-31 14:15 | EMERGENCY ROOM VISIT NOTE ---
History First contact with patient: 13:28 Chief Complaint: PACKING REMOVAL Stated Complaint: NEED BALLOON REMOVED Nursing Triage Summary: triage note: pt presents for removal of rhino rocket to right nares. pt reports was placed friday. History of Present Illness The patient is a 82 year old male who presents to the Emergency Room for packing removal from the right nostril. The patient was here 2 days ago with epistaxis. A rapid Rhino was placed, and the patient was instructed to return here in 48 hours. It is noted that the patient is also on Coumadin and was supratherapeutic on his last visit. He was instructed to hold his Coumadin until he follows up with his family doctor tomorrow at his scheduled follow-up appointment. The patient reports that he has had mild clear drainage from both nostrils. He denies any headaches, sore throat or cough. He denies any significant pain or discomfort. Review of Systems 10 system review was performed and was negative except for pertinent positives and negatives as indicated in history of present illness Past Medical/Surgical History Medical Problems: (1) COPD (chronic obstructive pulmonary disease) Family History Patient reports no known family medical history. Social History Smoking Status: Never Smoker Drug Use: none Marital Status: Occupation Status: retired Current/Historical Medications Scheduled Amoxicillin (Amoxicillin), 500 MG PO TID Fish Oil (Malcom-3), 1 CAP PO QDL Lansoprazole (Prevacid), 30 MG PO BID Levothyroxine Sodium (Synthroid), 150 MCG PO QAM Metoprolol Succinate (Metoprolol Succinate ER), 25 MG PO QAM Oxybutynin Chloride (Ditropan), 5 MG PO DAILY Polyethylene (Miralax), 17 GM PO BID Potassium (Potassium), 1 TAB PO QPM Simvastatin (Zocor), 20 MG PO QPM Warfarin Sod (Coumadin), 2.5 MG PO 6XWK Warfarin Sod (Coumadin), 1 TAB PO WK Scheduled PRN Albuterol Sulfate (Proair Respiclick), 2 PUFFS PO Q4 PRN for Shortness of Breath Fluticasone Propionate (Nasal) (Flonase Allergy Relief), 1 SPRAY ROSINA QPM PRN for PRN Physical Exam Vital Signs Date Time Temp Pulse Resp B/P (MAP) Pulse Ox O2 Delivery O2 Flow Rate FiO2 07/31/17 14:07 80 20 142/80 99 07/31/17 13:13 36.4 74 18 118/81 97 Room Air Physical Exam CONSTITUTIONAL: Healthy and well nourished. Alert and oriented X 3 with positive affect. HEENT: Normocephalic, atraumatic. Pupils equal, round and reactive. Rapid Rhino in the right nostril was appropriately positioned and with appropriate inflation pressure. No bleeding is noted from either nostril. Pressure was removed from the rapid Rhino and carefully removed. No active bleeding was noted. Further exam does not show any active bleeding or focal findings. NECK: Full active range of motion without discomfort. RESPIRATORY: Clear to auscultation bilaterally with no wheezing, crackles, rhonchi or stridor. INTEGUMENTARY: No rash or other significant dermatologic conditions noted. NEUROLOGIC: Facial sensations are intact. Medical Decision & Procedures Laboratory Results Test 07/31/17 13:49 Prothrombin Time 21.9 SECONDS (9.0-12.0) Prothromb Time International Ratio 2.1 (0.9-1.1) ED Course Patient history and physical exam were performed. Nurse's notes were reviewed. Vital signs were reviewed and normal. I also reviewed documentation from the patient's last visit. In order to expedite his doctor's appointment tomorrow, an INR was redrawn today and is therapeutic at 2.1. The patient will continue to hold his Coumadin until further directed by his PCP. I did encourage the patient to administer 1-2 Afrin nasal sprays every 6 hours over the next 24 hours to further constrict blood vessels. He was also encouraged to also use [place] nasal sprays, and try to avoid coughing, sneezing or blowing the nose over the next 48 hours. If bleeding reoccurs, he was instructed to apply Afrin and a nasal clamp, and return to the emergency department for any uncontrollable bleeding. The patient reports that he does have a history of prior recurrent epistaxis, and has followed with Dr. Beaulieu who performed a septoplasty. He may need referral to Dr. Beaulieu with any recurrent bleeding. The patient was happy with plan of care, and voiced understanding of all discharge instructions. Medical Decision Blood Pressure Screening Patient's blood pressure: Normal blood pressure Impression Primary Impression: Epistaxis Departure Information Dispostion Home / Self-Care Forms HOME CARE DOCUMENTATION FORM, IMPORTANT VISIT INFORMATION Patient Instructions My [facility] Additional Instructions Suggest administering 1-2 Afrin sprays in the right nostril every 6-8 hours for the next 24 hours. You may also use [place] nasal sprays to keep mucous membranes moist. If bleeding reoccurs, apply two Afrin sprays, then apply a nasal clamp CONTINUOUSLY for at least 30 minutes. Return to the emergency department for any uncontrollable bleeding. Follow-up with your family doctor tomorrow for recheck. Let them know that you had another INR rechecked in the emergency department today.
== END 2017-07-31 14:10 | disposition home or self-care (01) ==
LOC: C.EDB 13:07 → C.EDD 14:10
DX: R04.0 Epistaxis (principal); J44.9 Chronic obstructive pulmonary disease, unspecified; Z79.01 Long term (current) use of anticoagulants; Z51.81 Encounter for therapeutic drug level monitoring

== ENCOUNTER → 2017-08-07 | Outpatient (CLI) | payer OTHER ==
[~2017-08-07] MED LIST changes: -AMX500 PO
== END | disposition home or self-care (01) ==
LOC: C.LABBFT 10:07
PROVIDERS: ATTEND Internal Medicine
DX: M62.838 Other muscle spasm (principal)

== ENCOUNTER 2019-08-13 20:19 | Inpatient (IN) ==
--- NOTE | 2019-08-13 20:35 | Emergency Department Note ---
History of Present Illness General Chief complaint: Rectal Bleed Stated complaint: RECTAL BLEED Time Seen by Provider: 08/13/19 20:26 History of Present Illness Provider Complaint: + gross hematochezia Onset (ago): 6 hour(s) Maximum Pain Intensity: 0 Current Pain Intensity: 0 Relieved By: + none Exacerbated By: + none Context: + anticoagulant use (Coumadin) Associated symptoms: no abdominal pain, no nausea, no vomiting, no epistaxis, no fever, no chills, no headaches and no loss of appetite Home Medications Home Medications Medication Instructions Recorded Confirmed Type sodium chloride 0.9 % nasal spray 1 sprays INTNAS Q4H PRN 02/18/18 08/13/19 History aerosol polyethylene glycol 3350 17 17 gm PO BID gm 01/17/19 08/13/19 History gram/dose oral powder albuterol sulfate 90 mcg/actuation 2 puffs INH Q4H PRN #1 ea 01/18/19 08/13/19 Rx breath activated powder inhaler potassium 99 mg tablet 99 mg PO DAILY 04/19/19 08/13/19 History lansoprazole 30 mg capsule,delayed 30 mg PO BID #60 cap 06/23/19 08/13/19 Rx release primidone 50 mg tablet 50 mg PO DAILY tab 06/24/19 08/13/19 History levothyroxine 175 mcg tablet 175 mcg PO DAILY #30 tab 06/25/19 08/13/19 Rx warfarin 2.5 mg tablet See Rx Instructions PO UD 90 Days 07/26/19 08/13/19 Rx #90 tab metoprolol succinate 25 mg 25 mg PO DAILY #30 tab 08/05/19 08/13/19 Rx tablet,extended release 24 hr psyllium husk 3.4 gram/5.4 gram 1 tbs PO BID #660 gm 08/13/19 08/13/19 Rx oral powder simvastatin 20 mg tablet 20 mg PO QPM #90 tab 08/13/19 08/13/19 Rx Allergies Allergy/AdvReac Type Severity Reaction Status Date / Time No Known Allergies Allergy Verified 08/13/19 20:58 Past Med/Surg History Medical History Atrial fibrillation COPD (chronic obstructive pulmonary disease) Hyperlipidemia Hypothyroidism MCC (current) use of anticoagulants Surgical History No pertinent past surgical history Family History Brother Colorectal cancer Tremor Denies family history of Ovarian cancer Prostate cancer Myocardial infarction Breast cancer Social History marital status: Current Living Situation: Spouse current occupational status: retired Feels Safe at Home: Yes Smoking Status: Former smoker Age Started Using Tobacco: 21 ; Age Quit Using Tobacco: 51 ; packs per day: 1 ; Second Hand Exposure: No ; Hx Alcohol Use: Yes Alcohol Intake Frequency: Weekly Hx Substance Use: No caffeine: Yes Dental Care, Regularly: Yes Physical Activity Frequency: Does not Exercise Seatbelt Use: always Review of Systems A total of 10 systems reviewed and were otherwise negative Physical Exam Vital Signs: Vital Signs - 24 hr 08/13/19 20:20 08/13/19 20:30 Temperature 36.9 C Temperature Source Oral Pulse Rate 67 Respiratory Rate 20 Respiratory Effort / Characteristics Non-Labored Sponta neous Respiratory Depth Normal Blood Pressure 161/100 H Blood Pressure Serina n 120 Pulse Oximetry 94 Oxygen Delivery Me thod Room Air Room Air Sepsis Recent Feve r Within 48 Hours No Sepsis New/Unexpla ined Change in Men fer Status No Sepsis Action Take n by Nursing No Action Required Physical Exam: Physical Exam GENERAL: He is oriented to person, place, and time. He appears well-developed and well-nourished. He does not appear distressed. HENT: Exam performed. - Head: Normocephalic and atraumatic. - Right Ear: External ear normal. No mastoid tenderness. - Left Ear: External ear normal. No mastoid tenderness. - Mouth/Throat: The oropharynx is clear and moist. No trismus in the jaw. No dental abscesses or uvula swelling. No oropharyngeal exudate or tonsillar abscesses. EYES: Conjunctivae and EOM are normal. Pupils are equal, round, and reactive to light. Right eye exhibits no discharge. Left eye exhibits no discharge. No scleral icterus. NECK: Normal range of motion. Neck supple. No JVD present. No spinous process tenderness present. No carotid bruit present. No rigidity. No tracheal deviation and normal range of motion present. No Brudzinski's sign and no Kernig's sign noted. CV: Normal rate, irregular rhythm, normal heart sounds and intact distal pulses. There is no peripheral edema. Palpable radial pulses bue. PULM/CHEST: Effort normal and breath sounds normal. No respiratory distress. No stridor. He has no wheezes. He has no rales. - Chest Wall: He exhibits no tenderness. ABD: The abdomen is soft. Bowel sounds are normal. He has no distension. No mass is present. There is no tenderness. There is no rebound, no guarding, no Catherine's sign and no tenderness at McBurney's point. Rovsig negative. Rectal: Bright red blood per rectum MUSC/SKEL: Normal range of motion. There is no peripheral edema, tenderness or deformity. LYMPH: No cervical adenopathy. NEURO: He is alert and oriented to person, place, and time. He has normal strength. No cranial nerve deficit or sensory deficit. Coordination and gait normal. GCS eye subscore is 4. GCS verbal subscore is 5. GCS motor subscore is 6. Cerebellar tests wnl. SKIN: Skin is warm and dry. He is not diaphoretic. PSYCH: He has a normal mood and affect. Behavior is normal. Judgment and thought content normal. Course Course 2030: The patient was evaluated in room C9. A complete history and physical exam was performed. 3: Vital signs stable. Labs within normal limits. Hemoglobin 13.5. However given the patient's active bleeding, on Coumadin, will admit the patient for observation for GI bleed. [facility] hospitalist Dr. Phillips notified. Administered Medications Sodium Chloride (Nss 1000ml) 1,000 mls @ 125 mls/hr IV .Q8H AZEEM Stop: 09/12/19 20:29 Last Admin: 08/13/19 21:07 Dose: 125 mls/hr Documented by: [id number] Medical Decision Making Laboratory Data Result diagrams: 08/13/19 20:36 08/13/19 20:36 Lab Results 08/13/19 08/13/19 08/13/19 Range/Units 20:36 20:36 20:36 WBC 10.63 (4.8-10.8) K/uL RBC 4.28 L (4.7-6.1) M/uL Hgb 13.5 L (14.0-18.0) g/dL POC Hgb (14.0-18.0) g/dl Hct 39.6 L (42-52) % POC Hct (42-52) % MCV 92.5 (80-100) fL MCH 31.5 (25-34) pg MCHC 34.1 (32-36) g/dL RDW Std Deviation 45.7 (36.4-46.3) fL RDW Coeff of [place] 13.6 (11.5-14.5) % Plt Count 218 (130-400) K/uL MPV 9.3 (7.4-10.4) fL Immature Gran % (Auto) 0.4 % Neut % (Auto) 67.3 % Lymph % (Auto) 23.1 % [place] % (Auto) 7.3 % Eos % (Auto) 1.5 % Baso % (Auto) 0.4 % Immature Gran # (Auto) 0.04 H (0.00-0.02) K/uL Neut # (Auto) 7.15 H (1.4-6.5) K/uL Lymph # (Auto) 2.46 (1.2-3.4) K/uL [place] # (Auto) 0.78 H (0.11-0.59) K/uL Eos # (Auto) 0.16 (0-0.5) K/uL Baso # (Auto) 0.04 (0-0.2) K/uL PT (9.0-12.0) Seconds INR (0.9-1.1) APTT (21.0-31.0) Seconds PTT Ratio POC Sodium (135-144) mmol/L Sodium 137 (136-145) mmol/L POC Potassium (3.3-5.0) mmol/L Potassium 4.2 (3.5-5.1) mmol/L POC Chloride (101-112) mmol/L Chloride 103 (98-107) mmol/L Carbon Dioxide 31 (21-32) mmol/L POC Total CO2 (24-31) mEq/l Anion Gap 3.0 (3-11) POC Anion Gap (16-25) mmol/L POC BUN (7-18) mg/dl BUN 17 (7-18) mg/dl Creatinine 1.12 (0.6-1.4) mg/dl POC Creatinine (0.6-1.3) mg/dl Est Cr Clr Drug Dosing 62.6 ml/min Est GFR ( Amer) 70.0 Est GFR (Non-Af Amer) 60.4 BUN/Creatinine Ratio 15.4 (10-20) Glucose 104 H (70-99) mg/dl POC Glucose (other) (70-99) mg/dl Calcium 8.8 (8.5-10.1) mg/dl POC Ioniz Calcium [place] (1.12-1.32) mmol/l Magnesium 2.1 (1.8-2.4) mg/dl Total Bilirubin 0.4 (0.2-1) mg/dl Direct Bilirubin 0.1 (0-0.2) mg/dl AST 17 (15-37) U/L ALT 17 (12-78) U/L Alkaline Phosphatase 67 (45-117) U/L Total Protein 7.3 (6.4-8.2) gm/dl Albumin 4.0 (3.4-5.0) gm/dl Lipase 86 (73-393) U/L Blood Type O Positive Antibody Screen NEGATIVE 08/13/19 08/13/19 Range/Units 20:36 20:43 WBC (4.8-10.8) K/uL RBC (4.7-6.1) M/uL Hgb (14.0-18.0) g/dL POC Hgb 13.3 L (14.0-18.0) g/dl Hct (42-52) % POC Hct 39 L (42-52) % MCV (80-100) fL MCH (25-34) pg MCHC (32-36) g/dL RDW Std Deviation (36.4-46.3) fL RDW Coeff of [place] (11.5-14.5) % Plt Count (130-400) K/uL MPV (7.4-10.4) fL Immature Gran % (Auto) % Neut % (Auto) % Lymph % (Auto) % [place] % (Auto) % Eos % (Auto) % Baso % (Auto) % Immature Gran # (Auto) (0.00-0.02) K/uL Neut # (Auto) (1.4-6.5) K/uL Lymph # (Auto) (1.2-3.4) K/uL [place] # (Auto) (0.11-0.59) K/uL Eos # (Auto) (0-0.5) K/uL Baso # (Auto) (0-0.2) K/uL PT 24.5 H (9.0-12.0) Seconds INR 2.4 H (0.9-1.1) APTT 37.6 H (21.0-31.0) Seconds PTT Ratio 1.3 POC Sodium 136 (135-144) mmol/L Sodium (136-145) mmol/L POC Potassium 4.3 (3.3-5.0) mmol/L Potassium (3.5-5.1) mmol/L POC Chloride 99 L (101-112) mmol/L Chloride (98-107) mmol/L Carbon Dioxide (21-32) mmol/L POC Total CO2 28 (24-31) mEq/l Anion Gap (3-11) POC Anion Gap 14.0 L (16-25) mmol/L POC BUN 18 (7-18) mg/dl BUN (7-18) mg/dl Creatinine (0.6-1.4) mg/dl POC Creatinine 1.1 (0.6-1.3) mg/dl Est Cr Clr Drug Dosing ml/min Est GFR ( Amer) Est GFR (Non-Af Amer) BUN/Creatinine Ratio (10-20) Glucose (70-99) mg/dl POC Glucose (other) 103 H (70-99) mg/dl Calcium (8.5-10.1) mg/dl POC Ioniz Calcium [place] 1.15 (1.12-1.32) mmol/l Magnesium (1.8-2.4) mg/dl Total Bilirubin (0.2-1) mg/dl Direct Bilirubin (0-0.2) mg/dl AST (15-37) U/L ALT (12-78) U/L Alkaline Phosphatase (45-117) U/L Total Protein (6.4-8.2) gm/dl Albumin (3.4-5.0) gm/dl Lipase (73-393) U/L Blood Type Antibody Screen ECG Data Additional Comments: Sinus Rhythym. Rate 66. NV 174 QRS [address] No [address] elevation or ST depression right bundle branch block present. MDM Narrative Vital signs stable. Labs within normal limits. Hemoglobin 13.5. However given the patient's active bleeding, on Coumadin, will admit the patient for observation for GI bleed. [facility] hospitalist Dr. Phillips notified. 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 Patient Disposition: Being Evaluated by Hospitalist Forms Stand Alone Forms: My [facility] Prescriptions Prescriptions: No Action primidone 50 mg tablet 50 mg PO DAILY RF: 0 warfarin 2.5 mg tablet See Rx Instructions PO UD 90 Days Qty: 90 RF: 1 sodium chloride 0.9 % aerosol,spray 1 sprays INTNAS Q4H PRN (Reason: Nasal Congestion) RF: 0 polyethylene glycol 3350 [Miralax] 17 gram/dose powder 17 gm PO BID RF: 0 potassium 99 mg tablet 99 mg PO DAILY RF: 0 levothyroxine [Synthroid] 175 mcg tablet 175 mcg PO DAILY Qty: 30 RF: 2 metoprolol succinate 25 mg tablet extended release 24 hr 25 mg PO DAILY Qty: 30 RF: 11 simvastatin 20 mg tablet 20 mg PO QPM Qty: 90 RF: 1 lansoprazole 30 mg capsule,delayed release(DR/EC) 30 mg PO BID Qty: 60 RF: 11 Metamucil 3.4 gram/5.4 gram powder 1 tbs PO BID Qty: 660 RF: 0 ProAir RespiClick 90 mcg/actuation aerosol powdr breath activated 2 puffs INH Q4H PRN (Reason: shortness of breath or wheezing) Qty: 1 RF: 3 Referrals Referrals: Tanner Hartman III, MD [Primary Care Provider] -
[2019-08-13 20:45] LABS: Basophils # (auto) 0.04 K/uL (0-0.2); Basophils % (auto) 0.4 %; Eosinophils # (auto) 0.16 K/uL (0-0.5); Eosinophils % (auto) 1.5 %; Hematocrit (blood only) 39.6 % (42-52); Hemoglobin 13.5 g/dL (14.0-18.0); Immature Granulocytes # (auto) 0.04 K/uL (0.00-0.02); Immature Granulocytes % (auto) 0.4 %; Lymphocytes # (auto) 2.46 K/uL (1.2-3.4); Lymphocytes % (auto) 23.1 %; Mean Corpuscular Hemoglobin 31.5 pg (25-34); Mean Corpuscular Hgb Conc 34.1 g/dL (32-36); Mean Corpuscular Volume 92.5 fL (80-100); Mean Platelet Volume 9.3 fL (7.4-10.4); Monocytes # (auto) 0.78 K/uL (0.11-0.59); Monocytes % (auto) 7.3 %; Neutrophils # (auto) 7.15 K/uL (1.4-6.5); Neutrophils % (auto) 67.3 %; Platelet Count 218 K/uL (130-400); RDW Coefficient of Variation 13.6 % (11.5-14.5); RDW Standard Deviation 45.7 fL (36.4-46.3); Red Blood Count 4.28 M/uL (4.7-6.1); White Blood Count 10.63 K/uL (4.8-10.8)
[2019-08-13 20:56] LABS: iSTAT Creatinine 1.1 mg/dl (0.6-1.3); iSTAT Hemoglobin 13.3 g/dl (14.0-18.0); iSTAT Ionized Calcium 1.15 mmol/l (1.12-1.32); iSTAT Potassium 4.3 mmol/L (3.3-5.0)
[2019-08-13 20:57] LABS: INR 2.4 (0.9-1.1); Partial Thromboplastin Ratio 1.3; Partial Thromboplastin Time 37.6 Seconds (21.0-31.0); Prothrombin Time 24.5 Seconds (9.0-12.0)
[2019-08-13 21:01] LABS: BUN Creatinine Ratio 15.4 (10-20); Bilirubin Direct 0.1 mg/dl (0-0.2); Calcium 8.8 mg/dl (8.5-10.1); Creatinine Clr Calc Pharmacy 62.6 ml/min; Est GFR (Non-African American) 60.4; Magnesium 2.1 mg/dl (1.8-2.4); Potassium 4.2 mmol/L (3.5-5.1)
[2019-08-13 21:04] LABS: Bilirubin,Total 0.4 mg/dl (0.2-1); Total Protein 7.3 gm/dl (6.4-8.2)
[2019-08-13] MEDS: SODIUM CHLORIDE 0.9% 1000ML 1,000 ML IV SCH (21:07)
[2019-08-13] MEDS ORDERED: PHYTONADIONE 10 MG in SODIUM CHLORIDE 0.9% 50 ML IV ONE (22:13)
--- NOTE | 2019-08-13 22:29 | History & Physical Report ---
Date of Service August 13, 2019 Assessment & Plan (1) Lower gastrointestinal hemorrhage: Gallo Gil is a 84 y/o M with PMH significant for A. fib, chronic anticoagulant use (Coumadin), hyperlipidemia, and hypothyroidism; presented to the ER following several large-volume bloody stools Rectal bleed: - ?2/2 diverticulosis vs internal hemorrhoids - CT abd/pelvis demonstrated moderate colonic diverticulosis without evidence of acute diverticulitis, as well as what appears to be a intraluminal hemorrhage within colonic wall - Hold warfarin, check PT/INR in a.m. - Ordered 10 mg of IV vitamin K - Repeat H&H Q4h A fib: - rate controlled - continue home metoprolol - hold warfarin in the setting of rectal bleed - monitor on telemetry HLD: - continue home Hypothyroidism: - continue home synthroid Diet: NPO DVT ppx: contraindicated, patient supratherapeutic INR Code Status: Conditional code: no mechanical ventilation (2) Atrial fibrillation: (3) Rectal bleeding: (4) Hyperlipidemia: (5) Hypothyroidism: (6) FPC (current) use of anticoagulants: (7) COPD (chronic obstructive pulmonary disease): History of Present Illness Chief Complaint: Rectal bleed Primary Care Provider: Tanner Hartman MD Gallo Gil is a 84 y/o M with PMH significant for A. fib, chronic anticoagulant use (Coumadin), hyperlipidemia, and hypothyroidism; presented to the ER following several large-volume bloody stools; initially noticed this afternoon around 2:30 PM when he had his first bowel movement that was minimally with stool may like material but large volume dark bloody stools, at this time has not had any abdominal pain or tenderness. Has not eaten since earlier this morning, as he was not sure how long this would continue. Since the first episode he has had 3 subsequent bloody bowel movements that have decreased in volume. Denies, vomiting, palpitations, chest pain, shortness of breath, weakness, dizziness, headaches, changes in vision, falls. Denies denies recent illnesses, or contact with sick contacts. No known exposure to persons with confirmed or pending COVID diagnosis/test. Allergies Allergy/AdvReac Type Severity Reaction Status Date / Time No Known Allergies Allergy Verified 08/13/19 20:58 Home Medications Home Medications Medication Instructions Recorded Confirmed Type sodium chloride 0.9 % nasal spray 1 sprays INTNAS Q4H PRN 10/17/18 04/10/20 History aerosol polyethylene glycol 3350 17 17 gm PO BID gm 01/17/19 08/13/19 History gram/dose oral powder albuterol sulfate 90 mcg/actuation 2 puffs INH Q4H PRN #1 ea 01/18/19 08/13/19 Rx breath activated powder inhaler potassium 99 mg tablet 99 mg PO DAILY 04/19/19 08/13/19 History lansoprazole 30 mg capsule,delayed 30 mg PO BID #60 cap 06/23/19 08/13/19 Rx release primidone 50 mg tablet 50 mg PO DAILY tab 06/24/19 08/13/19 History levothyroxine 175 mcg tablet 175 mcg PO DAILY #30 tab 06/25/19 08/13/19 Rx warfarin 2.5 mg tablet See Rx Instructions PO UD 90 Days 07/26/19 08/13/19 Rx #90 tab metoprolol succinate 25 mg 25 mg PO DAILY #30 tab 08/05/19 08/13/19 Rx tablet,extended release 24 hr psyllium husk 3.4 gram/5.4 gram 1 tbs PO BID #660 gm 08/13/19 08/13/19 Rx oral powder simvastatin 20 mg tablet 20 mg PO QPM #90 tab 08/13/19 08/13/19 Rx Past Med/Surg History Medical History Atrial fibrillation COPD (chronic obstructive pulmonary disease) Hyperlipidemia Hypothyroidism FPC (current) use of anticoagulants (Acute) Surgical History No pertinent past surgical history Family History Brother Colorectal cancer Tremor Denies family history of Ovarian cancer Prostate cancer Myocardial infarction Breast cancer Social History Preferred Language: Maltese Beliefs That Will Affect Care: None marital status: Current Living Situation: Spouse current occupational status: retired Other Information That Helps Us Care for You: No Feels Safe at Home: Yes Safety Concerns: Feels Safe At This Time Smoking Status: Former smoker Tobacco Type: cigarettes ; Age Started Using Tobacco: 21 ; Age Quit Using Tobacco: 51 ; packs per day: 1 ; Do You Dip or Chew Tobacco: No ; Second Hand Exposure: No ; Tobacco Cessation Education Requested by Patient: No Hx Alcohol Use: No Hx Substance Use: No caffeine: Yes Dental Care, Regularly: Yes Physical Activity Frequency: Does not Exercise Seatbelt Use: always Review of Systems Review of Systems: All systems reviewed & are unremarkable except as noted in HPI & below Physical Exam Constitutional: WD/WN, vitals as above Eyes: PERRL, conjunctivae normal, anicteric sclerae ENMT: external ear and nose normal, oropharynx normal Neck: normal visual inspection Respiratory: normal respiratory effort, lungs clear to auscultation Cardiovascular: Rate/Rhythm: regular rate and regular rhythm Heart Sounds: normal S1 and normal S2; no gallop, no murmur and no cardiac rub Vessels: no JVD Extremities: no pedal edema Gastrointestinal (Abdomen): normal bowel sounds, soft, nontender, no hepatosplenomegaly Rectal Exam: + heme positive stool; no hemorrhoids (none visible), + abnormal visual inspection of rectum (faint amount of blood within gluteal folds) and no rectal laceration Musculoskeletal: no cyanosis or clubbing, extremities motor strength 5/5 Skin: no rashes, warm and dry Neurologic: patellar DTR's 2+ bilat, sensation intact normal touch/pain/proprioception and deep tendon reflexes 2+ bilaterally Psychiatric: A+Ox3, euthymic affect Lymphatic: no cervical or axillary lymphadenopathy Results & Data Results & Data ([facility]) Vital Signs (Past 12 Hours) Vital Signs Temp Pulse Pulse Resp BP BP Pulse Ox 08/13/19 22:09 65 18 151/100 H 97 08/13/19 20:20 36.9 C 67 20 161/100 H 94 Laboratory Results 08/13/19 08/13/19 08/13/19 Range/Units 20:43 20:36 20:36 WBC (4.8-10.8) K/uL RBC (4.7-6.1) M/uL Hgb (14.0-18.0) g/dL POC Hgb 13.3 L (14.0-18.0) g/dl Hct (42-52) % POC Hct 39 L (42-52) % MCV (80-100) fL MCH (25-34) pg MCHC (32-36) g/dL RDW Std Deviation (36.4-46.3) fL RDW Coeff of Boliv[place] (11.5-14.5) % Plt Count (130-400) K/uL MPV (7.4-10.4) fL Immature Gran % (Auto) % Neut % (Auto) % Lymph % (Auto) % Guthrie % (Auto) % Eos % (Auto) % Baso % (Auto) % Immature Gran # (Auto) (0.00-0.02) K/uL Neut # (Auto) (1.4-6.5) K/uL Lymph # (Auto) (1.2-3.4) K/uL Guthrie # (Auto) (0.11-0.59) K/uL Eos # (Auto) (0-0.5) K/uL Baso # (Auto) (0-0.2) K/uL PT 24.5 H (9.0-12.0) Seconds INR 2.4 H (0.9-1.1) APTT 37.6 H (21.0-31.0) Seconds PTT Ratio 1.3 POC Sodium 136 (135-144) mmol/L Sodium 137 (136-145) mmol/L POC Potassium 4.3 (3.3-5.0) mmol/L Potassium 4.2 (3.5-5.1) mmol/L POC Chloride 99 L (101-112) mmol/L Chloride 103 (98-107) mmol/L Carbon Dioxide 31 (21-32) mmol/L POC Total CO2 28 (24-31) mEq/l Anion Gap 3.0 (3-11) POC Anion Gap 14.0 L (16-25) mmol/L POC BUN 18 (7-18) mg/dl BUN 17 (7-18) mg/dl Creatinine 1.12 (0.6-1.4) mg/dl POC Creatinine 1.1 (0.6-1.3) mg/dl Est Cr Clr Drug Dosing 62.6 ml/min Est GFR ( Amer) 70.0 Est GFR (Non-Af Amer) 60.4 BUN/Creatinine Ratio 15.4 (10-20) Glucose 104 H (70-99) mg/dl POC Glucose (other) 103 H (70-99) mg/dl Calcium 8.8 (8.5-10.1) mg/dl POC Ioniz Calcium Tierra 1.15 (1.12-1.32) mmol/l Magnesium 2.1 (1.8-2.4) mg/dl Total Bilirubin 0.4 (0.2-1) mg/dl Direct Bilirubin 0.1 (0-0.2) mg/dl AST 17 (15-37) U/L ALT 17 (12-78) U/L Alkaline Phosphatase 67 (45-117) U/L Total Protein 7.3 (6.4-8.2) gm/dl Albumin 4.0 (3.4-5.0) gm/dl Lipase 86 (73-393) U/L Blood Type Antibody Screen 08/13/19 08/13/19 Range/Units 20:36 20:36 WBC 10.63 (4.8-10.8) K/uL RBC 4.28 L (4.7-6.1) M/uL Hgb 13.5 L (14.0-18.0) g/dL POC Hgb (14.0-18.0) g/dl Hct 39.6 L (42-52) % POC Hct (42-52) % MCV 92.5 (80-100) fL MCH 31.5 (25-34) pg MCHC 34.1 (32-36) g/dL RDW Std Deviation 45.7 (36.4-46.3) fL RDW Coeff of Bolivar 13.6 (11.5-14.5) % Plt Count 218 (130-400) K/uL MPV 9.3 (7.4-10.4) fL Immature Gran % (Auto) 0.4 % Neut % (Auto) 67.3 % Lymph % (Auto) 23.1 % Guthrie % (Auto) 7.3 % Eos % (Auto) 1.5 % Baso % (Auto) 0.4 % Immature Gran # (Auto) 0.04 H (0.00-0.02) K/uL Neut # (Auto) 7.15 H (1.4-6.5) K/uL Lymph # (Auto) 2.46 (1.2-3.4) K/uL Guthrie # (Auto) 0.78 H (0.11-0.59) K/uL Eos # (Auto) 0.16 (0-0.5) K/uL Baso # (Auto) 0.04 (0-0.2) K/uL PT (9.0-12.0) Seconds INR (0.9-1.1) APTT (21.0-31.0) Seconds PTT Ratio POC Sodium (135-144) mmol/L Sodium (136-145) mmol/L POC Potassium (3.3-5.0) mmol/L Potassium (3.5-5.1) mmol/L POC Chloride (101-112) mmol/L Chloride (98-107) mmol/L Carbon Dioxide (21-32) mmol/L POC Total CO2 (24-31) mEq/l Anion Gap (3-11) POC Anion Gap (16-25) mmol/L POC BUN (7-18) mg/dl BUN (7-18) mg/dl Creatinine (0.6-1.4) mg/dl POC Creatinine (0.6-1.3) mg/dl Est Cr Clr Drug Dosing ml/min Est GFR ( Amer) Est GFR (Non-Af Amer) BUN/Creatinine Ratio (10-20) Glucose (70-99) mg/dl POC Glucose (other) (70-99) mg/dl Calcium (8.5-10.1) mg/dl POC Ioniz Calcium Tierra (1.12-1.32) mmol/l Magnesium (1.8-2.4) mg/dl Total Bilirubin (0.2-1) mg/dl Direct Bilirubin (0-0.2) mg/dl AST (15-37) U/L ALT (12-78) U/L Alkaline Phosphatase (45-117) U/L Total Protein (6.4-8.2) gm/dl Albumin (3.4-5.0) gm/dl Lipase (73-393) U/L Blood Type O Positive Antibody Screen NEGATIVE Diagnostic Findings CT SCAN OF THE ABDOMEN AND PELVIS WITH IV CONTRAST CLINICAL HISTORY: Hematochezia. COMPARISON STUDY: Abdominal CT dated 02/18/2017. TECHNIQUE: Following the IV administration of 94 cc of Optiray 320, CT scan of the abdomen and pelvis is performed from the lung bases to the proximal femora. Images are reviewed in the axial, sagittal, and coronal planes. IV contrast was administered without complication. A dose lowering technique was utilized adhering to the principles of ALARA. CT DOSE: 1370.53 mGy.cm FINDINGS: Lung bases: The heart is normal in size and without pericardial effusion. There is bibasilar scarring/atelectasis. No airspace consolidation or pleural effusion is identified. Scattered pulmonary nodules are seen at the lung bases and measure up to 4 mm (axial images #11, #50, #55). There is a small hiatal hernia. Liver: The contrast-enhanced liver is normal in size, contour, and attenuation. There is no intrahepatic biliary ductal dilatation. The hepatic veins and portal veins are patent. A 2 cm cyst is noted in the right lobe. Gallbladder: Unremarkable. Spleen: Normal in size and attenuation. Pancreas: Moderately atrophic and grossly unremarkable. Adrenal glands: Unremarkable. Kidneys: The contrast enhanced kidneys demonstrate cortical atrophy and are without hydronephrosis. The kidneys enhance symmetrically. A 1.7 cm cyst is noted in the right lower pole. Abdominal vasculature: There is moderate to advanced atherosclerotic calcification and ectasia of the abdominal aorta. Bowel: There is moderate to advanced colonic diverticulosis without CT evidence of acute diverticulitis. No bowel obstruction is seen. A segment of the sigmoid colon is contained within a left inguinal hernia. Hyperdense fluid within the distal descending/proximal sigmoid colon as imaged #346. This may represent a site of intraluminal extravasation. Liquid stool is noted in the rectum. The appendix is not identified and reported surgically absent. Peritoneum: There is no intraperitoneal free air or abdominal ascites. Lymphadenopathy: None. Pelvic viscera: The prostate gland is enlarged and heterogeneous noting median lobe hypertrophy. The bladder wall is thickened and trabeculated indicating chronic outlet obstruction. There are left larger than right inguinal hernias. The left inguinal hernia contains a nonobstructed segment of colon. Skeletal structures: The skeletal structures are osteopenic. There is moderate lumbosacral spondylosis and mild scoliosis. No lytic or blastic lesions are seen. IMPRESSION: 1. There is moderate colonic diverticulosis without CT evidence of acute diverticulitis. 2. Hyperdense material is present within the distal descending/proximal sigmoid colon. This is nonspecific and may represent a site of intraluminal extravasation. This could be further assessed with endoscopy if clinically warranted. 3. There are left larger than right inguinal hernias. The left inguinal hernia contains a nonobstructed segment of the sigmoid colon. 4. Liquid stool is noted in the rectosigmoid. Correlate clinically for evidence of a diarrheal illness. 5. Additional findings as above. ACT 112: Negative or not required by law. Electronically signed by: Edmundo Morel M.D. 08/13/2019 10:42 PM Medications Administered Current Inpatient Medications Sodium Chloride (Nss 1000ml) 1,000 mls @ 125 mls/hr IV .Q8H AZEEM Stop: 09/12/19 20:29 Last Admin: 08/13/19 21:07 Dose: 125 mls/hr Documented by: Phytonadione 10 mg/ Sodium (Chloride) 51 mls @ 102 mls/hr IV ONE ONE Stop: 08/13/19 22:42 Code Status & VTE Plan Code Status Conditional code: no mechanical ventilation Supervising Physician Co-Signing Physician Notes Attending addendum: I have physically seen this patient, have supervised the medical residents activities, and agree with the H&P unless as otherwise noted. Assessment and Plan: Lower GI bleed- Monitored bed INR 2.4 upon admission. Hold warfarin. Give vitamin K 10 mg IV x1. If recurrent bleeding, will give 2 units FFP. Serial H&H every 6 hours. Type and screen NPO Consult gastroenterology. Atrial fibrillation- Continue metoprolol Hold warfarin and reverse with vitamin K as noted above. Remainder of orders and notations as noted. Resident Activity Tracking Resident Involvement: Resident Care Provided Care Provided: Adult Hospital Medicine
[2019-08-13] MEDS ORDERED: IOVERSOL 100ml IV PRN (22:30)
--- NOTE | 2019-08-13 22:43 | CT Scan Report ---
CT SCAN OF THE ABDOMEN AND PELVIS WITH IV CONTRAST CLINICAL HISTORY: Hematochezia. COMPARISON STUDY: Abdominal CT dated 02/18/2017. TECHNIQUE: Following the IV administration of 94 cc of Optiray 320, CT scan of the abdomen and pelvi s is performed from the lung bases to the proximal femora. Images are reviewed in the axial, sagittal , and coronal planes. IV contrast was administered without complication. A dose lowering technique wa s utilized adhering to the principles of ALARA. CT DOSE: 1370.53 mGy.cm FINDINGS: Lung bases: The heart is normal in size and without pericardial effusion. There is bibasilar scarring /atelectasis. No airspace consolidation or pleural effusion is identified. Scattered pulmonary nodule s are seen at the lung bases and measure up to 4 mm (axial images #11, #50, #55). There is a small hi atal hernia. Liver: The contrast-enhanced liver is normal in size, contour, and attenuation. There is no intrahepa tic biliary ductal dilatation. The hepatic veins and portal veins are patent. A 2 cm cyst is noted in the right lobe. Gallbladder: Unremarkable. Spleen: Normal in size and attenuation. Pancreas: Moderately atrophic and grossly unremarkable. Adrenal glands: Unremarkable. Kidneys: The contrast enhanced kidneys demonstrate cortical atrophy and are without hydronephrosis. T he kidneys enhance symmetrically. A 1.7 cm cyst is noted in the right lower pole. Abdominal vasculature: There is moderate to advanced atherosclerotic calcification and ectasia of the abdominal aorta. Bowel: There is moderate to advanced colonic diverticulosis without CT evidence of acute diverticulit is. No bowel obstruction is seen. A segment of the sigmoid colon is contained within a left inguinal hernia. Hyperdense fluid within the distal descending/proximal sigmoid colon as imaged #346. This may represent a site of intraluminal extravasation. Liquid stool is noted in the rectum. The appendix is not identified and reported surgically absent. Peritoneum: There is no intraperitoneal free air or abdominal ascites. Lymphadenopathy: None. Pelvic viscera: The prostate gland is enlarged and heterogeneous noting median lobe hypertrophy. The bladder wall is thickened and trabeculated indicating chronic outlet obstruction. There are left larg er than right inguinal hernias. The left inguinal hernia contains a nonobstructed segment of colon. Skeletal structures: The skeletal structures are osteopenic. There is moderate lumbosacral spondylosi s and mild scoliosis. No lytic or blastic lesions are seen. IMPRESSION: 1. There is moderate colonic diverticulosis without CT evidence of acute diverticulitis. 2. Hyperdense material is present within the distal descending/proximal sigmoid colon. This is nonspe cific and may represent a site of intraluminal extravasation. This could be further assessed with end oscopy if clinically warranted. 3. There are left larger than right inguinal hernias. The left inguinal hernia contains a nonobstruct ed segment of the sigmoid colon. 4. Liquid stool is noted in the rectosigmoid. Correlate clinically for evidence of a diarrheal illnes s. 5. Additional findings as above. ACT 112: Negative or not required by law. Electronically signed by: Edmundo Morel M.D. 08/13/2019 10:42 PM
[2019-08-13 23:42] LABS: Hematocrit (blood only) 35.5 % (42-52); Hemoglobin 12.3 g/dL (14.0-18.0)
[2019-08-13] MEDS ORDERED: ALBUTEROL HFA 8 GM INHALER INH PRN (23:54)
[2019-08-14 01:24] LABS: Hematocrit (blood only) 35.3 % (42-52); Hemoglobin 12.2 g/dL (14.0-18.0)
--- NOTE | 2019-08-14 01:32 | Communication Note ---
Date of Service: August 14, 2019 Code Jennie called overhead at 0100, responded to room. Patient had large volume bloody bowel movement, and then after returning to bed became bradycardic to 30s, with lightheadedness and dizziness. On arrival HR 66, BP 111/71, sats 94%. Patient not complaining of chest pain, chest tightness, shortness of breath, abdominal pain, nausea, or vomiting. Stat EKG demonstrated Right bundle branch block consistent with EKG taken on admission Stat Troponin, CBC, BMP, Mag ordered Transferred to PCU status, given continued hematochezia Consented for blood/blood products Started on 2units of FFP. Resident Activity Tracking Resident Involvement: Resident Care Provided Care Provided: Adult [facility]
[2019-08-14] MEDS ORDERED: SODIUM CHLORIDE 0.9% 250 ML IV PRN (01:33)
[2019-08-14 01:37] LABS: Basophils # (auto) 0.03 K/uL (0-0.2); Basophils % (auto) 0.2 %; Eosinophils # (auto) 0.18 K/uL (0-0.5); Eosinophils % (auto) 1.4 %; Hematocrit (blood only) 35.4 % (42-52); Hemoglobin 12.2 g/dL (14.0-18.0); Immature Granulocytes # (auto) 0.04 K/uL (0.00-0.02); Immature Granulocytes % (auto) 0.3 %; Lymphocytes # (auto) 3.64 K/uL (1.2-3.4); Mean Corpuscular Hemoglobin 31.8 pg (25-34); Mean Corpuscular Volume 92.2 fL (80-100); Mean Platelet Volume 9.5 fL (7.4-10.4); Monocytes # (auto) 0.75 K/uL (0.11-0.59); Neutrophils # (auto) 7.91 K/uL (1.4-6.5); Neutrophils % (auto) 63.1 %; Platelet Count 199 K/uL (130-400); RDW Coefficient of Variation 13.6 % (11.5-14.5); RDW Standard Deviation 45.3 fL (36.4-46.3); Red Blood Count 3.84 M/uL (4.7-6.1); White Blood Count 12.55 K/uL (4.8-10.8)
[2019-08-14 01:42] LABS: Mean Corpuscular Hgb Conc 34.5 g/dL (32-36)
[2019-08-14 02:02] LABS: BUN Creatinine Ratio 15.2 (10-20); Blood Urea Nitrogen 17 mg/dl (7-18); Calcium 8.3 mg/dl (8.5-10.1); Carbon Dioxide 27 mmol/L (21-32); Chloride 107 mmol/L (98-107); Creatinine Clr Calc Pharmacy 60.1 ml/min; Est GFR (African American) 69.3; Est GFR (Non-African American) 59.8; Glucose 115 mg/dl (70-99); Potassium 4.1 mmol/L (3.5-5.1); Sodium 137 mmol/L (136-145)
[2019-08-14 02:06] LABS: Troponin I < 0.015 ng/ml (0-0.045)
[2019-08-14] MEDS ORDERED: SODIUM CHLORIDE 0.9% 1000ML 1,000 ML IV ONE (02:11)
[2019-08-14] MEDS: LEVOTHYROXINE SODIUM 175 MCG TABLET PO SCH (04:56)
[2019-08-14 05:55] LABS: Basophils # (auto) 0.01 K/uL (0-0.2); Basophils % (auto) 0.1 %; Eosinophils # (auto) 0.03 K/uL (0-0.5); Eosinophils % (auto) 0.4 %; Hemoglobin 10.8 g/dL (14.0-18.0); Immature Granulocytes # (auto) 0.03 K/uL (0.00-0.02); Immature Granulocytes % (auto) 0.4 %; Lymphocytes # (auto) 0.57 K/uL (1.2-3.4); Mean Corpuscular Hgb Conc 34.8 g/dL (32-36); Mean Platelet Volume 9.1 fL (7.4-10.4); Monocytes # (auto) 0.08 K/uL (0.11-0.59); Monocytes % (auto) 1.1 %; Neutrophils # (auto) 6.44 K/uL (1.4-6.5); Platelet Count 144 K/uL (130-400); RDW Coefficient of Variation 13.6 % (11.5-14.5); RDW Standard Deviation 45.3 fL (36.4-46.3); Red Blood Count 3.37 M/uL (4.7-6.1); White Blood Count 7.16 K/uL (4.8-10.8)
[2019-08-14 06:19] LABS: Calcium 7.9 mg/dl (8.5-10.1); Est GFR (African American) 87.7; Est GFR (Non-African American) 75.7; Potassium 4.4 mmol/L (3.5-5.1)
[2019-08-14] MEDS ORDERED: PERFLUTREN LIPID MICROSPHERE (DEFINITY) IV ONE (08:39)
[2019-08-14] MEDS: PRIMIDONE 50 MG TAB PO SCH (09:09)
[2019-08-14] MEDS: PANTOprazole 40 MG in SYRINGE 0 ML IV SCH ×2 (09:10→21:10)
[2019-08-14] MEDS: SODIUM CHLORIDE 0.9% 1000ML 1,000 ML IV SCH ×2 (09:14→17:38)
[2019-08-14] MEDS: METOPROLOL SUCC 25MG EXT REL TAB PO SCH (09:49)
--- NOTE | 2019-08-14 09:54 | XCELERA ---
[id number] \\[id number]
--- NOTE | 2019-08-14 10:08 | Electrocardiogram Report ---
Test Reason : Blood Pressure : / mmHG Vent. Rate : 066 BPM Atrial Rate : 066 BPM P-R Int : 174 ms QRS Dur : 158 ms QT Int : 478 ms P-R-T Axes : -22 033 020 degrees QTc Int : 501 ms Normal sinus rhythm Right bundle branch block Abnormal ECG When compared with ECG of 18-FEB-2017 15:53, Premature ventricular complexes are no longer Present Otherwise no significant change Confirmed by Ryland Carlisle ([id number]) on 08/14/2019 10:07:57 AM Referred By: Tanner Hartman Confirmed By:Ryland Carlisle
--- NOTE | 2019-08-14 10:29 | Hospitalist Progress Note ---
Date of Service August 14, 2019 Assessment & Plan (1) Lower gastrointestinal hemorrhage: Continue to follow H&H every 8 hours. Bright red blood per rectum which is painless, consider bleeding diverticulosis considering results of CT scan. Will ask GI to evaluate for possible colonoscopy versus further work-up. If significant drop of hemoglobin along with large amount of bleeding, consider stat bleeding scan. (2) Atrial fibrillation: Patient was on Coumadin secondary to atrial fibrillation. Admission INR was 2.4. Patient was given 10 mg of vitamin K along with 2 units of fresh frozen plasma. We will recheck INR and treat further as needed. With low normal blood pressure, will hold beta-blockers for now continue to monitor. (3) Hyperlipidemia: Continue simvastatin as ordered (4) Hypothyroidism: Continue levothyroxine as ordered Admission and Anticipated Discharge Date Admission Date: August 13, 2019 Subjective Patient seen and examined. He is boarding in the ICU but is a telemetry patient. Blood pressure and heart rate are stable although I do note events last night when the patient had a bradycardia down to 30s with a blood pressure as low as 52/26. Patient is having ongoing bowel movements, nurse tells me that this is a bright red blood. Patient tells me that these are painless. He also denies any abdominal pain. He has had no nausea or vomiting. Physical Exam Constitutional: cooperative; no acute distress Neck: trachea midline, no thyromegaly Respiratory: normal respiratory effort Auscultation: lungs clear to auscultation bilaterally; no crackles, no rales, no rhonchi and no wheezes Cardiovascular: Rate/Rhythm: regular rate and regular rhythm Heart Sounds: normal S1 and normal S2 Gastrointestinal (Abdomen): Inspection/Auscultation: abdomen normal to inspection Percussion/Palpation: abdomen soft; abdomen nontender, no guarding, abdomen not rigid and no hepatosplenomegaly Skin: no rashes, warm and dry Results & Data Results & Data ([facility]) Vital Signs (Past 12 Hours) Vital Signs Temp Pulse Pulse Resp BP BP Pulse Ox 08/14/19 07:24 36.5 C 65 15 108/57 L 98 08/14/19 07:00 36.5 C 67 18 108/57 L 99 08/14/19 06:00 36.5 C 64 15 123/70 97 08/14/19 05:30 36.5 C 66 21 114/62 98 08/14/19 05:10 36.8 C 57 L 18 122/70 99 08/14/19 04:53 36.7 C 50 L 18 156/76 H 99 08/14/19 04:35 36.6 C 52 L 18 156/76 H 99 08/14/19 03:35 36.8 C 62 18 116/70 99 08/14/19 03:15 36.8 C 62 21 97/68 L 98 08/14/19 03:05 36.8 C 62 18 132/70 99 08/14/19 02:44 36.8 C 61 17 144/72 H 100 08/14/19 02:39 60 13 99 08/14/19 02:38 61 14 99 08/14/19 02:37 63 16 99 08/14/19 02:36 63 17 100 08/14/19 02:35 63 16 99 08/14/19 02:34 36.6 C 62 17 121/74 100 08/14/19 02:33 60 15 99 08/14/19 02:32 63 18 99 08/14/19 02:31 63 17 121/74 99 08/14/19 02:30 62 15 99 08/14/19 02:29 62 17 99 08/14/19 02:28 62 14 98 08/14/19 02:27 63 15 98 08/14/19 02:26 61 14 99 08/14/19 02:25 61 18 125/69 99 08/14/19 02:24 63 15 99 08/14/19 02:23 62 18 100 08/14/19 02:22 63 14 98 08/14/19 02:21 63 14 99 08/14/19 02:20 62 15 106/72 99 08/14/19 02:19 63 20 100 08/14/19 02:18 65 16 99 08/14/19 02:17 64 16 99 08/14/19 02:15 62 13 108/73 99 08/14/19 02:14 63 19 99 08/14/19 02:13 63 13 98 08/14/19 02:12 64 12 99 08/14/19 02:10 63 14 119/71 98 08/14/19 02:07 62 13 98 08/14/19 02:06 65 22 110/76 98 08/14/19 02:05 67 18 97 08/14/19 02:04 66 17 108/70 97 08/14/19 02:03 66 17 98 08/14/19 02:02 67 24 77/56 L 99 08/14/19 02:01 61 17 97 08/14/19 01:59 62 17 66/38 L 97 08/14/19 01:58 58 L 18 49/33 L 97 08/14/19 01:57 61 18 52/26 L 98 08/14/19 01:49 70 08/14/19 01:33 36.5 C 71 18 116/74 99 08/14/19 01:30 71 16 97 08/14/19 00:00 37.2 C 64 16 162/81 H 96 08/13/19 23:54 65 08/13/19 23:00 62 13 155/86 H 97 08/13/19 22:40 63 18 137/97 97 PG Care Time/CCT Total # of Minutes Spent Total Time Spent with Patient: Total time spent is greater than 50% in coordination of care (as documented) at patient's floor/unit and/or counseling patient: Coding Level of Care Code 62204 Subseq Hosp Care Lvl 2 Diagnoses Lower gastrointestinal hemorrhage K92.2 Atrial fibrillation I48.91 Hyperlipidemia E78.5 Hypothyroidism E03.9
[2019-08-14 11:26] LABS: Hematocrit (blood only) 31.1 % (42-52); Hemoglobin 10.7 g/dL (14.0-18.0)
--- NOTE | 2019-08-14 12:24 | Gastrointestinal Consultation ---
Date of Consultation August 14, 2019 Assessment & Plan (1) Lower gastrointestinal hemorrhage: (2) Acute blood loss anemia: (3) Hematochezia: I informed the patient that the most likely cause of his bleeding is secondary to a diverticular source. Other possibilities include AVM's, Hemorrhoids, or less likely a mass (he had a colonoscopy in Jun 2017). Often a bowel prep can cause vasoconstriction in the colon, and cause a diverticular source to stop bleeding, therefore, we will give him a golytely bowel prep today. If his bleeding stops, we will observe the patient. Colonoscopy has a very low yield (about 10%) in finding a bleeding source in regards to diverticular bleeding, and we will hold off on this, unless he continues to have BRBPR. He can have clear liquids during his bowel prep. He is in agreement with this plan. History of Present Illness Reason for Consultation: Hematochezia Attending Physician: Jared Cordero, History of Present Illness Mr. Gil is an 84 yo CM who presented to [facility] ER last night with complaints of BRBPR. He has a significant PMHx of A-fib, and is on chronic coumadin therapy at home. His INR on admission was 2.5. He last underwent a colonoscopy in June 2017, and was noted to have multiple colon polyps, sigmoid diverticulosis and internal hemorrhoids. His initial H/H 13.5/39.6 in the ER. He was given 10 mg of Vitamin K in the ER, as well as transfused [address] scan in the ER did show sigmoid diverticulosis. He was subsequently admitted to the telemetry unit. He has had multiple episodes of hematochezia both prior to and since his admission, as reported by nursing staff. At the time that I saw the patient he states that he is feeling much better. He states that his bowel movements are becoming much less frequent. He did have some bright red blood with his last BM 1/2 hour ago, but it was much less than prior. He denies any lightheadedness, dizziness, fevers, chills, nausea, vomiting, hematemesis, or abdominal pain. He states that he would like to avoid any invasive testing if possible. Allergies Allergy/AdvReac Type Severity Reaction Status Date / Time No Known Allergies Allergy Verified 08/13/19 20:58 Home Medications Home Medications Medication Instructions Recorded Confirmed Type sodium chloride 0.9 % nasal spray 1 sprays INTNAS Q4H PRN 02/18/18 08/13/19 History aerosol polyethylene glycol 3350 17 17 gm PO BID gm 01/17/19 08/13/19 History gram/dose oral powder albuterol sulfate 90 mcg/actuation 2 puffs INH Q4H PRN #1 ea 01/18/19 08/13/19 Rx breath activated powder inhaler potassium 99 mg tablet 99 mg PO DAILY 04/19/19 08/13/19 History lansoprazole 30 mg capsule,delayed 30 mg PO BID #60 cap 06/23/19 08/13/19 Rx release primidone 50 mg tablet 50 mg PO DAILY tab 06/24/19 08/13/19 History levothyroxine 175 mcg tablet 175 mcg PO DAILY #30 tab 06/25/19 08/13/19 Rx warfarin 2.5 mg tablet See Rx Instructions PO UD 90 Days 07/26/19 08/13/19 Rx #90 tab metoprolol succinate 25 mg 25 mg PO DAILY #30 tab 08/05/19 08/13/19 Rx tablet,extended release 24 hr psyllium husk 3.4 gram/5.4 gram 1 tbs PO BID #660 gm 08/13/19 08/13/19 Rx oral powder simvastatin 20 mg tablet 20 mg PO QPM #90 tab 08/13/19 08/13/19 Rx Patient History Medical History Atrial fibrillation COPD (chronic obstructive pulmonary disease) Hyperlipidemia Hypothyroidism [facility] (current) use of anticoagulants (Acute) Surgical History No pertinent past surgical history Family History Brother Colorectal cancer Tremor Denies family history of Ovarian cancer Prostate cancer Myocardial infarction Breast cancer Social History Preferred Language: Syriac Beliefs That Will Affect Care: None marital status: Current Living Situation: Spouse current occupational status: retired Other Information That Helps Us Care for You: No Feels Safe at Home: Yes Safety Concerns: Feels Safe At This Time Smoking Status: Former smoker Tobacco Type: cigarettes ; Age Started Using Tobacco: 21 ; Age Quit Using Tobacco: 51 ; packs per day: 1 ; Do You Dip or Chew Tobacco: No ; Second Hand Exposure: No ; Tobacco Cessation Education Requested by Patient: No Hx Alcohol Use: No Hx Substance Use: No caffeine: Yes Dental Care, Regularly: Yes Physical Activity Frequency: Does not Exercise Seatbelt Use: always Review of Systems Review of Systems: All systems reviewed & are unremarkable except as noted in HPI & below Physical Exam Constitutional: WD/WN, vitals as above Eyes: PERRL, conjunctivae normal, anicteric sclerae ENMT: external ear and nose normal, oropharynx normal Neck: trachea midline, no thyromegaly Respiratory: normal respiratory effort, lungs clear to auscultation Cardiovascular: RRR, no murmur, no edema Gastrointestinal (Abdomen): normal bowel sounds, soft, nontender, no hepatosplenomegaly Skin: no rashes, warm and dry Psychiatric: A+Ox3, euthymic affect Results & Data ([facility]) Vital Signs (Past 12 Hours) Vital Signs Temp Pulse Pulse Resp BP BP Pulse Ox 08/14/19 12:00 36.3 C L 58 L 18 120/67 96 08/14/19 07:24 36.5 C 65 15 108/57 L 98 08/14/19 07:00 36.5 C 67 18 108/57 L 99 08/14/19 06:00 36.5 C 64 15 123/70 97 08/14/19 05:30 36.5 C 66 21 114/62 98 08/14/19 05:10 36.8 C 57 L 18 122/70 99 08/14/19 04:53 36.7 C 50 L 18 156/76 H 99 08/14/19 04:35 36.6 C 52 L 18 156/76 H 99 08/14/19 03:35 36.8 C 62 18 116/70 99 08/14/19 03:15 36.8 C 62 21 97/68 L 98 08/14/19 03:05 36.8 C 62 18 132/70 99 08/14/19 02:44 36.8 C 61 17 144/72 H 100 08/14/19 02:39 60 13 99 08/14/19 02:38 61 14 99 08/14/19 02:37 63 16 99 08/14/19 02:36 63 17 100 04/11/20 02:35 63 16 99 08/14/19 02:34 36.6 C 62 17 121/74 100 08/14/19 02:33 60 15 99 08/14/19 02:32 63 18 99 08/14/19 02:31 63 17 121/74 99 08/14/19 02:30 62 15 99 08/14/19 02:29 62 17 99 08/14/19 02:28 62 14 98 08/14/19 02:27 63 15 98 08/14/19 02:26 61 14 99 08/14/19 02:25 61 18 125/69 99 08/14/19 02:24 63 15 99 08/14/19 02:23 62 18 100 08/14/19 02:22 63 14 98 08/14/19 02:21 63 14 99 08/14/19 02:20 62 15 106/72 99 08/14/19 02:19 63 20 100 08/14/19 02:18 65 16 99 08/14/19 02:17 64 16 99 08/14/19 02:15 62 13 108/73 99 08/14/19 02:14 63 19 99 08/14/19 02:13 63 13 98 08/14/19 02:12 64 12 99 08/14/19 02:10 63 14 119/71 98 08/14/19 02:07 62 13 98 08/14/19 02:06 65 22 110/76 98 08/14/19 02:05 67 18 97 08/14/19 02:04 66 17 108/70 97 08/14/19 02:03 66 17 98 08/14/19 02:02 67 24 77/56 L 99 08/14/19 02:01 61 17 97 08/14/19 01:59 62 17 66/38 L 97 08/14/19 01:58 58 L 18 49/33 L 97 08/14/19 01:57 61 18 52/26 L 98 08/14/19 01:49 70 08/14/19 01:33 36.5 C 71 18 116/74 99 08/14/19 01:30 71 16 97 PG Care Time/CCT Total # of Minutes Spent Total Time Spent with Patient: Total time spent is greater than 50% in coordination of care (as documented) at patient's floor/unit and/or counseling patient: Coding Level of Care Code 23598 Initial Inpt Care Lvl 3 Diagnoses Lower gastrointestinal hemorrhage K92.2 Acute blood loss anemia D62 Hematochezia K92.1
[2019-08-14] MEDS ORDERED: LAVAGE SOLUTION 4000ML PO SCH (13:15)
[2019-08-14 18:16] LABS: Hematocrit (blood only) 30.7 % (42-52); Hemoglobin 10.5 g/dL (14.0-18.0)
[2019-08-14] MEDS: SIMVASTATIN 20 MG TAB PO SCH (20:57)
[2019-08-15] MEDS: SODIUM CHLORIDE 0.9% 1000ML 1,000 ML IV SCH ×2 (01:39→19:51)
[2019-08-15 02:19] LABS: Basophils # (auto) 0.03 K/uL (0-0.2); Basophils % (auto) 0.5 %; Eosinophils # (auto) 0.16 K/uL (0-0.5); Eosinophils % (auto) 2.5 %; Hematocrit (blood only) 29.1 % (42-52); Immature Granulocytes # (auto) 0.02 K/uL (0.00-0.02); Immature Granulocytes % (auto) 0.3 %; Lymphocytes # (auto) 1.63 K/uL (1.2-3.4); Lymphocytes % (auto) 25.5 %; Mean Corpuscular Hemoglobin 31.8 pg (25-34); Mean Corpuscular Hgb Conc 34.4 g/dL (32-36); Mean Corpuscular Volume 92.7 fL (80-100); Mean Platelet Volume 9.2 fL (7.4-10.4); Monocytes # (auto) 0.51 K/uL (0.11-0.59); Neutrophils # (auto) 4.03 K/uL (1.4-6.5); Neutrophils % (auto) 63.2 %; Platelet Count 153 K/uL (130-400); RDW Coefficient of Variation 13.9 % (11.5-14.5); RDW Standard Deviation 45.6 fL (36.4-46.3); Red Blood Count 3.14 M/uL (4.7-6.1); White Blood Count 6.38 K/uL (4.8-10.8)
[2019-08-15 02:33] LABS: INR 1.1 (0.9-1.1)
[2019-08-15 02:38] LABS: BUN Creatinine Ratio 10.7 (10-20); Calcium 7.7 mg/dl (8.5-10.1); Creatinine Clr Calc Pharmacy 73.8 ml/min; Est GFR (African American) 88.8; Est GFR (Non-African American) 76.6; Potassium 3.9 mmol/L (3.5-5.1)
--- NOTE | 2019-08-15 06:39 | Billing Data ---
Date of Service August 15, 2019 Coding Level of Care Code 40036 Initial Inpt Care Lvl 3
[2019-08-15] MEDS: LEVOTHYROXINE SODIUM 175 MCG TABLET PO SCH (07:07)
--- NOTE | 2019-08-15 08:21 | Anesthesiology Consultation ---
Date of Service August 15, 2019 Assessment & Plan (1) Encounter for pre-operative examination: Chart Review Chart Review: Acceptable Risk for Surgery (elevated risk but necessary procedure) and Patient NOT seen in Pre Admission Testing Consults Requested none History Surgery Operation Date: 08/15/19 08:20 Proposed Procedures p Colonoscopy - Prasanna Ping Case, DO Height/Weight Height: 5 ft 11 in Weight: 102.6 kg Allergies Allergy/AdvReac Type Severity Reaction Status Date / Time No Known Allergies Allergy Verified 08/13/19 20:58 Medications Home Medications Medication Instructions Recorded Confirmed Last Taken sodium chloride 0.9 % nasal spray 1 sprays INTNAS Q4H PRN 02/18/18 08/13/19 Unknown aerosol polyethylene glycol 3350 17 17 gm PO BID gm 01/17/19 08/13/19 08/13/19 08:00 gram/dose oral powder albuterol sulfate 90 mcg/actuation 2 puffs INH Q4H PRN #1 ea 01/18/19 08/13/19 Unknown breath activated powder inhaler potassium 99 mg tablet 99 mg PO DAILY 04/19/19 08/13/19 08/13/19 lansoprazole 30 mg capsule,delayed 30 mg PO BID #60 cap 06/23/19 08/13/19 08/13/19 release primidone 50 mg tablet 50 mg PO DAILY tab 06/24/19 08/13/19 08/13/19 levothyroxine 175 mcg tablet 175 mcg PO DAILY #30 tab 06/25/19 08/13/19 08/13/19 warfarin 2.5 mg tablet See Rx Instructions PO UD 90 Days 07/26/19 08/13/19 08/12/19 16:00 #90 tab metoprolol succinate 25 mg 25 mg PO DAILY #30 tab 08/05/19 08/13/19 08/13/19 tablet,extended release 24 hr psyllium husk 3.4 gram/5.4 gram 1 tbs PO BID #660 gm 08/13/19 08/13/19 08/13/19 02:00 oral powder simvastatin 20 mg tablet 20 mg PO QPM #90 tab 08/13/19 08/13/19 Unknown Active Medications Generic Name Dose Route Start Last Admin Trade Name Freq PRN Reason Stop Dose Admin Sodium Chloride 1,000 mls @ 125 mls/hr 08/13/19 20:30 08/15/19 01:39 Nss 1000ml IV 09/12/19 20:29 125 mls/hr .Q8H AZEEM Administration Pantoprazole Sodium 40 mg/ 10 mls @ 5 mls/min 08/14/19 09:00 08/14/19 21:10 Syringe IV 09/13/19 08:59 5 mls/min BID AZEEM Administration Levothyroxine Sodium 175 mcg 08/14/19 06:30 08/15/19 07:07 Synthroid PO 09/13/19 06:29 175 mcg DAILYBB AZEEM Administration Metoprolol Succinate 25 mg 08/14/19 09:00 08/14/19 09:49 Toprol Xl PO 09/13/19 08:59 Not Given DAILY AZEEM Primidone 50 mg 08/14/19 09:00 08/14/19 09:09 Primidone PO 09/13/19 08:59 50 mg DAILY AZEEM Administration Simvastatin 20 mg 08/14/19 21:00 08/14/19 20:57 Zocor PO 09/13/19 20:59 Not Given QPM AZEEM Past Medical History Medical History (Updated 08/15/19 @ 08:25 by Asad Quiroz MD) Anemia Atrial fibrillation COPD (chronic obstructive pulmonary disease) Hematochezia Hyperlipidemia Hypothyroidism correction (current) use of anticoagulants (Acute) Past Family History Family History Brother Colorectal cancer Tremor Denies family history of Ovarian cancer Prostate cancer Myocardial infarction Breast cancer Past Surgical History Surgical History No pertinent past surgical history Social History Smoking Status: Former smoker tobacco type: cigarettes Do You Dip or Chew Tobacco: No Hx Alcohol Use: No Hx Substance Use: No Physical Exam Vital Signs Last Vital Signs Temp 36.7 C 08/15/19 07:49 Pulse 61 08/15/19 07:49 Resp 19 08/15/19 07:49 BP 171/86 H 08/15/19 07:49 Pulse Ox 96 08/15/19 07:49 Testing Laboratory Results 08/15/19 02:06 08/15/19 02:06 PT 12.0 Seconds (9.0-12.0) 08/15/19 02:06 INR 1.1 (0.9-1.1) 08/15/19 02:06 APTT 37.6 Seconds (21.0-31.0) H 08/13/19 20:36 Blood Type O Positive 08/13/19 20:36 Antibody Screen NEGATIVE 08/13/19 20:36 Electrocardiogram Date: 08/14/19 Findings: + NSR @ (71) and + RBBB Echocardiogram Date: 08/14/19 EF: 55-60 LV Function: normal R ventricle dilated, R ventricle reduced function Other Testing cc: ~ CT SCAN OF THE ABDOMEN AND PELVIS WITH IV CONTRAST CLINICAL HISTORY: Hematochezia. COMPARISON STUDY: Abdominal CT dated 02/18/2017. TECHNIQUE: Following the IV administration of 94 cc of Optiray 320, CT scan of the abdomen and pelvis is performed from the lung bases to the proximal femora. Images are reviewed in the axial, sagittal, and coronal planes. IV contrast was administered without complication. A dose lowering technique was utilized adhering to the principles of ALARA. CT DOSE: 1370.53 mGy.cm FINDINGS: Lung bases: The heart is normal in size and without pericardial effusion. There is bibasilar scarring/atelectasis. No airspace consolidation or pleural effusion is identified. Scattered pulmonary nodules are seen at the lung bases and measure up to 4 mm (axial images #11, #50, #55). There is a small hiatal hernia. Liver: The contrast-enhanced liver is normal in size, contour, and attenuation. There is no intrahepatic biliary ductal dilatation. The hepatic veins and portal veins are patent. A 2 cm cyst is noted in the right lobe. Gallbladder: Unremarkable. Spleen: Normal in size and attenuation. Pancreas: Moderately atrophic and grossly unremarkable. Adrenal glands: Unremarkable. Kidneys: The contrast enhanced kidneys demonstrate cortical atrophy and are without hydronephrosis. The kidneys enhance symmetrically. A 1.7 cm cyst is noted in the right lower pole. Abdominal vasculature: There is moderate to advanced atherosclerotic calcificat ion and ectasia of the abdominal aorta. Bowel: There is moderate to advanced colonic diverticulosis without CT evidence of acute diverticulitis. No bowel obstruction is seen. A segment of the sigmoid colon is contained within a left inguinal hernia. Hyperdense fluid within the distal descending/proximal sigmoid colon as imaged #346. This may represent a site of intraluminal extravasation. Liquid stool is noted in the rectum. The appendix is not identified and reported surgically absent. Peritoneum: There is no intraperitoneal free air or abdominal ascites. Lymphadenopathy: None. Pelvic viscera: The prostate gland is enlarged and heterogeneous noting median lobe hypertrophy. The bladder wall is thickened and trabeculated indicating chronic outlet obstruction. There are left larger than right inguinal hernias. The left inguinal hernia contains a nonobstructed segment of colon. Skeletal structures: The skeletal structures are osteopenic. There is moderate lumbosacral spondylosis and mild scoliosis. No lytic or blastic lesions are seen. IMPRESSION: 1. There is moderate colonic diverticulosis without CT evidence of acute diverticulitis. 2. Hyperdense material is present within the distal descending/proximal sigmoid colon. This is nonspecific and may represent a site of intraluminal extravasation. This could be further assessed with endoscopy if clinically warranted. 3. There are left larger than right inguinal hernias. The left inguinal hernia contains a nonobstructed segment of the sigmoid colon. 4. Liquid stool is noted in the rectosigmoid. Correlate clinically for evidence of a diarrheal illness. 5. Additional findings as above. ACT 112: Negative or not required by law. Electronically signed by: Edmundo Morel M.D. 08/13/2019 10:42 PM Dictated: 08/13/192232 Transcribed: 08/13/192232
[2019-08-15] MEDS ORDERED: ATROPINE SULFATE 0.1 MG/ML 10ML SYR IV PRN (08:25)
[2019-08-15] MEDS ORDERED: LABETALOL HCL IV 5 MG/ML 20ML IV PRN (08:25)
[2019-08-15] MEDS ORDERED: PHENYLEPHRINE 100MCG/ML 5ML SYR IV PRN (08:25)
[2019-08-15] MEDS ORDERED: ePHEDrine sulfate 50 MG/ML AMP IV PRN (08:25)
[2019-08-15] MEDS ORDERED: ONDANSETRON INJ 2 MG/ML 2 ML VIAL IV PRN (08:25)
--- NOTE | 2019-08-15 08:31 | Gastroenterology Progress Note ---
Date of Service August 15, 2019 Assessment & Plan (1) Hematochezia: (2) Acute blood loss anemia: H/H declined overnight, however no overt bleeding. He will need senior care anticoagulation secondary to history of A-Fib Proceed with emergent colonoscopy today in attempt to determine bleeding source Continue supportive care and current medications Admission and Anticipated Discharge Date Admission Date: August 13, 2019 Subjective Feeling better today, but still week. He did finish his bowel prep last night. He states that by the end of the prep, there was no evidence of bleeding. He has had brown colored liquid stools overnight per nursing. H/H did drop slightly overnight. He denies any fevers, chills, abdominal pain, nausea, vomiting, hematemesis, melena or hematochezia. He has no further complaints. Physical Exam Constitutional: WD/WN, vitals as above Respiratory: normal respiratory effort, lungs clear to auscultation Cardiovascular: RRR, no murmur, no edema Gastrointestinal (Abdomen): normal bowel sounds, soft, nontender, no hepatosplenomegaly Results & Data Results & Data ([facility]) Vital Signs (Past 12 Hours) Vital Signs Temp Pulse Pulse Resp BP Pulse Ox 08/15/19 07:49 36.7 C 61 19 171/86 H 96 08/15/19 07:00 59 L 08/15/19 04:47 36.7 C 68 18 138/86 95 08/14/19 23:57 36.6 C 61 18 120/83 96 PG Care Time/CCT Total # of Minutes Spent Total Time Spent with Patient: Total time spent is greater than 50% in coordination of care (as documented) at patient's floor/unit and/or counseling patient: Coding Level of Care Code 71328 Subseq Hosp Care Lvl 2 Diagnoses Hematochezia K92.1 Acute blood loss anemia D62
[2019-08-15] MEDS: PANTOprazole 40 MG in SYRINGE 0 ML IV SCH ×2 (08:35→20:00)
[2019-08-15] MEDS: METOPROLOL SUCC 25MG EXT REL TAB PO SCH (08:40)
[2019-08-15] MEDS ORDERED: LIDOCAINE HCL 2% 2 ML VIAL/AMP(20MG/ML) INFIL ONE (09:39)
[2019-08-15] MEDS ORDERED: PROPOFOL IV EMULSION 10 MG/ML 20 ML VIAL IV ONE (09:39)
--- NOTE | 2019-08-15 09:51 | GI REPORT ---
Patient Name: Gallo Gil Procedure Date: 08/15/2019 9:18 AM Date of : 1935 Admit Type: Inpatient Age: 84 Gender: Male Attending MD: Prasanna Jimenez DO Procedure: Colonoscopy Providers: Prasanna Jimenez DO Referring MD: Jared Rodriguez Do Indications: Hematochezia Medicines: Monitored Anesthesia Care Complications: No immediate complications. Estimated Blood Loss: Estimated blood loss: none. Procedure: Pre-Anesthesia Assessment: - Prior to the procedure, a History and Physical was performed, and patient medications and allergies were reviewed. The patient's tolerance of previous anesthesia was also reviewed. The risks and benefits of the procedure and the sedation options and risks were discussed with the patient. All questions were answered, and informed consent was obtained. Prior Anticoagulants: The patient has taken Coumadin (warfarin), last dose was 3 days prior to procedure. ASA Grade Assessment: III - A patient with severe systemic disease. After reviewing the risks and benefits, the patient was deemed in satisfactory condition to undergo the procedure. After I obtained informed consent, the scope was passed under direct vision. Throughout the procedure, the patient's blood pressure, pulse, and oxygen saturations were monitored continuously. The Colonoscope was introduced through the anus and advanced to the terminal ileum. The colonoscopy was performed without difficulty. The patient tolerated the procedure well. The quality of the bowel preparation was good. The terminal ileum, ileocecal valve, appendiceal orifice, and rectum were photographed. Findings: The perianal and digital rectal examinations were normal. Many small and large-mouthed diverticula were found in the sigmoid colon and descending colon. There was no evidence of diverticular bleeding. A single (solitary) four mm ulcer was found in the sigmoid colon. No bleeding was present. No stigmata of recent bleeding were seen. One hemostatic clip was successfully placed (MR conditional). There was no bleeding at the end of the procedure. Non-bleeding internal hemorrhoids were found during retroflexion. The hemorrhoids were small. Impression: - Moderate diverticulosis in the sigmoid colon and in the descending colon. There was no evidence of diverticular bleeding. - A single (solitary) ulcer in the sigmoid colon. Clip (MR conditional) was placed. - Non-bleeding internal hemorrhoids. - No specimens collected. Recommendation: - Return patient to hospital [facility] for ongoing care. - Advance diet as tolerated. - Continue present medications. Prasanna Jimenez, DO 08/15/2019 9:51:00 AM This report has been signed electronically. Note Initiated On: 08/15/2019 9:18 AM Number of Addenda: 0 I attest to the content of the Intraoperative Record and orders documented therein, exceptions below {[id number]}
--- NOTE | 2019-08-15 09:52 | Electrocardiogram Report ---
Test Reason : Blood Pressure : / mmHG Vent. Rate : 071 BPM Atrial Rate : 071 BPM P-R Int : 174 ms QRS Dur : 156 ms QT Int : 486 ms P-R-T Axes : -02 028 028 degrees QTc Int : 528 ms Normal sinus rhythm Right bundle branch block Abnormal ECG When compared with ECG of 13-AUG-2019 20:47, No significant change was found Confirmed by Ryland Carlisle ([id number]) on 08/15/2019 9:52:13 AM Referred By: Tanner Hartman Confirmed By:Ryland Carlisle
--- NOTE | 2019-08-15 10:11 | Anesthesiology Progress Note ---
Date of Service August 15, 2019 Anesthesia Post Procedure Vital Signs Vital Signs: Temp Pulse Pulse Resp BP BP Pulse Ox 08/15/19 10:00 61 13 143/70 H 98 08/15/19 09:50 36.3 C L 66 16 129/70 100 08/15/19 07:49 36.7 C 61 19 171/86 H 96 08/15/19 07:00 59 L 08/15/19 04:47 36.7 C 68 18 138/86 95 08/14/19 23:57 36.6 C 61 18 120/83 96 08/14/19 19:10 36.6 C 67 18 135/87 95 08/14/19 15:05 36.7 C 69 27 H 138/74 98 08/14/19 12:00 36.3 C L 58 L 18 120/67 96 Transfer of Care Handoff Completed per policy Notes Mental Status: alert / awake / arousable Patient Amnestic to Procedure: Yes Nausea / Vomiting: adequately controlled Pain: adequately controlled Airway Patency, RR, SpO2: stable & adequate BP & HR: stable & adequate Hydration State: stable & adequate Anesthetic Complications: no major complications apparent and Pt Satisfied with anesthetic care
[2019-08-15 10:36] LABS: Hematocrit (blood only) 31.3 % (42-52); Hemoglobin 10.7 g/dL (14.0-18.0)
[2019-08-15] MEDS: PRIMIDONE 50 MG TAB PO SCH (10:42)
[2019-08-15] MEDS ORDERED: SODIUM CHLORIDE 0.65% NA SOLN 45 ML (OCEAN) PRN (10:46)
[2019-08-15] MEDS ORDERED: HydrALAZINE HCL 20 MG/ML VIAL IV ONE (11:14)
--- NOTE | 2019-08-15 12:31 | Hospitalist Progress Note ---
Date of Service August 15, 2019 Assessment & Plan (1) Lower gastrointestinal hemorrhage: Hemoglobin level is been stable. Will check daily. Per GI, will advance to clear liquid diet. Monitor for further bleeding. (2) Atrial fibrillation: Continue metoprolol for rate control. Patient is off of Coumadin secondary to bleeding. If patient does well, consideration to restarting Coumadin, will defer this decision to GI. 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 We will ask PT/OT to evaluate, consideration to short-term skilled placement if necessary. Subjective Patient underwent colonoscopy today after overnight prep. Results noted, has moderate diverticulosis without evidence of bleeding. There is a solitary ulcer which was clipped. Patient is awake and alert time of my evaluation, he had no complaints. Nursing did report patient had multiple episodes of bloody stool but patient states he has not had a bowel movement since approximate 11 PM last night. Denies any pain, fever, chills. I do note that he is hypertensive. Physical Exam Constitutional: cooperative; no acute distress Neck: trachea midline, no thyromegaly Respiratory: normal respiratory effort Auscultation: lungs clear to auscultation bilaterally; no crackles, no rales, no rhonchi and no wheezes Cardiovascular: Rate/Rhythm: regular rate and regular rhythm Heart Sounds: normal S1 and normal S2 Gastrointestinal (Abdomen): Inspection/Auscultation: abdomen normal to inspection Percussion/Palpation: abdomen soft; abdomen nontender, no guarding, abdomen not rigid and no hepatosplenomegaly Skin: no rashes, warm and dry Results & Data Results & Data ([facility]) Vital Signs (Past 12 Hours) Vital Signs Temp Pulse Pulse Pulse Resp BP BP 08/15/19 11:51 36.5 C 56 L 18 181/91 H 08/15/19 11:10 36.9 C 56 L 16 174/92 H 08/15/19 10:35 36.9 C 60 16 148/82 H 08/15/19 10:24 36.7 C 60 16 150/73 H 08/15/19 10:10 36.3 C L 65 15 148/72 H 08/15/19 10:00 61 13 143/70 H 08/15/19 09:50 36.3 C L 66 16 129/70 08/15/19 07:49 36.7 C 61 19 171/86 H 08/15/19 07:00 59 L 08/15/19 04:47 36.7 C 68 18 138/86 Pulse Ox 08/15/19 11:51 99 08/15/19 11:10 08/15/19 10:35 96 08/15/19 10:24 96 08/15/19 10:10 99 08/15/19 10:00 98 08/15/19 09:50 100 08/15/19 07:49 96 08/15/19 07:00 08/15/19 04:47 95 PG Care Time/CCT Total # of Minutes Spent Total Time Spent with Patient: Total time spent is greater than 50% in coordination of care (as documented) at patient's floor/unit and/or counseling patient: Coding Level of Care Code 56679 Subseq Hosp Care Lvl 2 Diagnoses Lower gastrointestinal hemorrhage K92.2 Atrial fibrillation I48.91 Rectal bleeding K62.5 Hyperlipidemia E78.5 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
[2019-08-15] MEDS ORDERED: WARFARIN SOD 2.5 MG TAB PO SCH (16:00)
[2019-08-15] MEDS ORDERED: HydrALAZINE HCL 20 MG/ML VIAL ONE (18:52)
[2019-08-15] MEDS: PSYLLIUM 58.6% POWDER PACKET PO SCH (20:00)
[2019-08-15] MEDS: POLYETHYLENE (MIRALAX) 17 GM PACK PO SCH (20:00)
[2019-08-15] MEDS: SIMVASTATIN 20 MG TAB PO SCH (20:00)
[2019-08-16] MEDS: LEVOTHYROXINE SODIUM 175 MCG TABLET PO SCH (05:24)
[2019-08-16 06:11] LABS: Basophils # (auto) 0.03 K/uL (0-0.2); Basophils % (auto) 0.4 %; Eosinophils # (auto) 0.19 K/uL (0-0.5); Eosinophils % (auto) 2.4 %; Hematocrit (blood only) 30.8 % (42-52); Hemoglobin 10.6 g/dL (14.0-18.0); Immature Granulocytes # (auto) 0.03 K/uL (0.00-0.02); Immature Granulocytes % (auto) 0.4 %; Lymphocytes # (auto) 1.01 K/uL (1.2-3.4); Lymphocytes % (auto) 12.5 %; Mean Corpuscular Hemoglobin 31.7 pg (25-34); Mean Corpuscular Hgb Conc 34.4 g/dL (32-36); Mean Corpuscular Volume 92.2 fL (80-100); Mean Platelet Volume 9.1 fL (7.4-10.4); Monocytes # (auto) 0.74 K/uL (0.11-0.59); Monocytes % (auto) 9.2 %; Neutrophils # (auto) 6.05 K/uL (1.4-6.5); Neutrophils % (auto) 75.1 %; Platelet Count 191 K/uL (130-400); RDW Coefficient of Variation 13.7 % (11.5-14.5); RDW Standard Deviation 46.1 fL (36.4-46.3); Red Blood Count 3.34 M/uL (4.7-6.1); White Blood Count 8.05 K/uL (4.8-10.8)
[2019-08-16 06:21] LABS: INR 1.1 (0.9-1.1); Prothrombin Time 11.4 Seconds (9.0-12.0)
[2019-08-16 06:37] LABS: BUN Creatinine Ratio 8.7 (10-20); Calcium 8.6 mg/dl (8.5-10.1); Creatinine Clr Calc Pharmacy 73.2 ml/min; Est GFR (African American) 87.7; Est GFR (Non-African American) 75.7; Potassium 3.8 mmol/L (3.5-5.1)
[2019-08-16] MEDS: PANTOprazole 40 MG in SYRINGE 0 ML IV SCH ×2 (07:59→20:29)
[2019-08-16] MEDS: POLYETHYLENE (MIRALAX) 17 GM PACK PO SCH ×2 (07:59→20:39)
[2019-08-16] MEDS: METOPROLOL SUCC 25MG EXT REL TAB PO SCH (07:59)
[2019-08-16] MEDS: PSYLLIUM 58.6% POWDER PACKET PO SCH ×2 (07:59→20:39)
[2019-08-16] MEDS: PRIMIDONE 50 MG TAB PO SCH (07:59)
[2019-08-16] MEDS ORDERED: NON-FORMULARY MEDICATION (Potassium 99 MG) PO SCH (09:00)
--- NOTE | 2019-08-16 09:44 | Hospitalist Progress Note ---
Date of Service August 16, 2019 Assessment & Plan (1) Lower gastrointestinal hemorrhage: Hemoglobin remained stable and patient has no clinical evidence of bleeding. Has been tolerating clears, will advance to a low fiber diet. (2) Atrial fibrillation: Continue metoprolol for rate control. Will restart Coumadin at previous dosing, follow INR. I will monitor patient 24-48 hours in the hospital while restart anticoagulation to manage any possible bleeding. Continue to follow CBC. (3) Rectal bleeding: (4) Hyperlipidemia: Continue simvastatin as ordered (5) Hypothyroidism: Continue levothyroxine as ordered (6) group home (current) use of anticoagulants: (7) COPD (chronic obstructive pulmonary disease): Admission and Anticipated Discharge Date Admission Date: August 13, 2019 PT/OT evaluation as patient feels he is very weak. Would consider home versus short-term placement for rehab depending on progress. Subjective Patient seen and examined. He seems to have some difficulty understanding the plan that I described to him. He is denying any abdominal pain. He also denies any rectal bleeding. Patient is concerned that he has been off his blood thinners and is requesting that these be restarted. I did to the best my ab ility explain him why they had been discontinued but agreed that I would like him to remain in the hospital while we start dosing them again. He denies any complaint such as chest pain, shortness of breath, fever or chills. Physical Exam Constitutional: cooperative; no acute distress Neck: trachea midline, no thyromegaly Respiratory: normal respiratory effort Auscultation: lungs clear to auscultation bilaterally; no crackles, no rales, no rhonchi and no wheezes Cardiovascular: Rate/Rhythm: regular rate and regular rhythm Heart Sounds: normal S1 and normal S2 Gastrointestinal (Abdomen): Inspection/Auscultation: abdomen normal to inspection Percussion/Palpation: abdomen soft; abdomen nontender, no guarding, abdomen not rigid and no hepatosplenomegaly Skin: no rashes, warm and dry Results & Data Results & Data ([facility] Vital Signs (Past 12 Hours) Vital Signs Temp Pulse Pulse Resp BP Pulse Ox 08/16/19 07:22 63 08/16/19 07:11 36.5 C 75 20 167/97 H 96 08/16/19 03:43 36.7 C 70 18 143/90 H 98 08/16/19 00:22 61 08/15/19 23:18 36.6 C 65 18 152/81 H 97 PG Care Time/CCT Total # of Minutes Spent Total Time Spent with Patient: Total time spent is greater than 50% in coordination of care (as documented) at patient's floor/unit and/or counseling patient: Coding Level of Care Code 88754 Subseq Hosp Care Lvl 2 Diagnoses Lower gastrointestinal hemorrhage K92.2 Atrial fibrillation I48.91 Rectal bleeding K62.5 Hyperlipidemia E78.5 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
--- NOTE | 2019-08-16 11:23 | Communication Note ---
Date of Service: August 16, 2019 GI brief note: 84 yo male underwent colonoscopy yesterday 08/15/2019 for lower GI bleeding, found to have diverticulosis and sigmoid ulcer s/p endoclip placement. No active bleeding noted throughout procedure. Hgb remains stable since procedure. Recs: --supportive care -- agree with restarting anticoagulation at this time --continue PPI --patient can follow up with Dr. Jimenez as an outpatient Robby Jama MD Gastroenterology
[2019-08-16] MEDS ORDERED: WARFARIN SOD 1.25 MG TAB PO SCH (16:00)
[2019-08-16] MEDS ORDERED: WARFARIN SOD 2.5 MG TAB PO SCH (16:00)
[2019-08-16] MEDS: SIMVASTATIN 20 MG TAB PO SCH (20:28)
[2019-08-17] MEDS: LEVOTHYROXINE SODIUM 175 MCG TABLET PO SCH (05:43)
[2019-08-17 06:26] LABS: Basophils # (auto) 0.03 K/uL (0-0.2); Basophils % (auto) 0.4 %; Eosinophils # (auto) 0.28 K/uL (0-0.5); Eosinophils % (auto) 3.9 %; Hematocrit (blood only) 32.1 % (42-52); Immature Granulocytes # (auto) 0.04 K/uL (0.00-0.02); Immature Granulocytes % (auto) 0.6 %; Lymphocytes # (auto) 1.23 K/uL (1.2-3.4); Lymphocytes % (auto) 17.1 %; Mean Corpuscular Hemoglobin 31.4 pg (25-34); Mean Corpuscular Hgb Conc 34.3 g/dL (32-36); Mean Corpuscular Volume 91.7 fL (80-100); Mean Platelet Volume 9.3 fL (7.4-10.4); Monocytes # (auto) 0.67 K/uL (0.11-0.59); Monocytes % (auto) 9.3 %; Neutrophils # (auto) 4.96 K/uL (1.4-6.5); Neutrophils % (auto) 68.7 %; Platelet Count 198 K/uL (130-400); RDW Coefficient of Variation 13.8 % (11.5-14.5); RDW Standard Deviation 45.5 fL (36.4-46.3); White Blood Count 7.21 K/uL (4.8-10.8)
[2019-08-17 06:35] LABS: INR 1.1 (0.9-1.1); Prothrombin Time 11.4 Seconds (9.0-12.0)
[2019-08-17 07:01] LABS: Calcium 8.8 mg/dl (8.5-10.1); Creatinine Clr Calc Pharmacy 63.6 ml/min; Est GFR (Non-African American) 63.9; Potassium 3.9 mmol/L (3.5-5.1)
[2019-08-17] MEDS: PRIMIDONE 50 MG TAB PO SCH (08:08)
[2019-08-17] MEDS: PANTOprazole 40 MG in SYRINGE 0 ML IV SCH (08:08)
[2019-08-17] MEDS: POLYETHYLENE (MIRALAX) 17 GM PACK PO SCH (08:10)
[2019-08-17] MEDS: METOPROLOL SUCC 25MG EXT REL TAB PO SCH (08:10)
[2019-08-17] MEDS: PSYLLIUM 58.6% POWDER PACKET PO SCH (08:10)
--- NOTE | 2019-08-17 10:25 | Discharge Summary ---
Date of Service August 17, 2019 Admission HPI Per Admitting Provider Gallo Gil is a 84 y/o M with PMH significant for A. fib, chronic anticoagulant use (Coumadin), hyperlipidemia, and hypothyroidism; presented to the ER following several large-volume bloody stools; initially noticed this afternoon around 2:30 PM when he had his first bowel movement that was minimally with stool may like material but large volume dark bloody stools, at this time has not had any abdominal pain or tenderness. Has not eaten since earlier this morning, as he was not sure how long this would continue. Since the first episode he has had 3 subsequent bloody bowel movements that have decreased in volume. Denies, vomiting, palpitations, chest pain, shortness of breath, weakness, dizziness, headaches, changes in vision, falls. Denies denies recent illnesses, or contact with sick contacts. No known exposure to persons with confirmed or pending COVID diagnosis/test. Admission Exam Per Admitting Provider Constitutional: WD/WN, vitals as above Eyes: PERRL, conjunctivae normal, anicteric sclerae ENMT: external ear and nose normal, oropharynx normal Neck: normal visual inspection Respiratory: normal respiratory effort, lungs clear to auscultation Cardiovascular: Rate/Rhythm: regular rate and regular rhythm Heart Sounds: normal S1 and normal S2; no gallop, no murmur and no cardiac rub Vessels: no JVD Extremities: no pedal edema Gastrointestinal (Abdomen): normal bowel sounds, soft, nontender, no hepatosplenomegaly Rectal Exam: + heme positive stool; no hemorrhoids (none visible), + abnormal visual inspection of rectum (faint amount of blood within gluteal folds) and no rectal laceration Musculoskeletal: no cyanosis or clubbing, extremities motor strength 5/5 Skin: no rashes, warm and dry Neurologic: patellar DTR's 2+ bilat, sensation intact normal touch/pain/proprioception and deep tendon reflexes 2+ bilaterally Psychiatric: A+Ox3, euthymic affect Lymphatic: no cervical or axillary lymphadenopathy Principal Diagnosis 1. Lower GI bleed, secondary to possible diverticular bleed versus ulceration 2. Acute blood loss anemia 3. Paroxysmal atrial fibrillation by history, patient is on Coumadin 4. Hyperlipidemia by history 5. Hypothyroidism by history 6. Acute deconditioning secondary to the above Discharge Data Allergies Allergy/AdvReac Type Severity Reaction Status Date / Time No Known Allergies Allergy Verified 08/13/19 20:58 Consultations 08/13/19 21:13 ED Decision to Admit Stat 08/14/19 10:27 Consult Gastroenterology Routine Procedures Performed Operation Date: 08/15/19 08:20 Actual Procedures p Colonoscopy with hemostasis - Prasanna G. Case, DO Ordered Studies 08/13/19 22:13 CT abd pelvis IV con only Stat CT SCAN OF THE ABDOMEN AND PELVIS WITH IV CONTRAST CLINICAL HISTORY: Hematochezia. COMPARISON STUDY: Abdominal CT dated 02/18/2017. TECHNIQUE: Following the IV administration of 94 cc of Optiray 320, CT scan of the abdomen and pelvis is performed from the lung bases to the proximal femora. Images are reviewed in the axial, sagittal, and coronal planes. IV contrast was administered without complication. A dose lowering technique was utilized adhering to the principles of ALARA. CT DOSE: 1370.53 mGy.cm FINDINGS: Lung bases: The heart is normal in size and without pericardial effusion. There is bibasilar scarring/atelectasis. No airspace consolidation or pleural effusion is identified. Scattered pulmonary nodules are seen at the lung bases and measure up to 4 mm (axial images #11, #50, #55). There is a small hiatal hernia. Liver: The contrast-enhanced liver is normal in size, contour, and attenuation. There is no intrahepatic biliary ductal dilatation. The hepatic veins and portal veins are patent. A 2 cm cyst is noted in the right lobe. Gallbladder: Unremarkable. Spleen: Normal in size and attenuation. Pancreas: Moderately atrophic and grossly unremarkable. Adrenal glands: Unremarkable. Kidneys: The contrast enhanced kidneys demonstrate cortical atrophy and are with out hydronephrosis. The kidneys enhance symmetrically. A 1.7 cm cyst is noted in the right lower pole. Abdominal vasculature: There is moderate to advanced atherosclerotic calcification and ectasia of the abdominal aorta. Bowel: There is moderate to advanced colonic diverticulosis without CT evidence of acute diverticulitis. No bowel obstruction is seen. A segment of the sigmoid colon is contained within a left inguinal hernia. Hyperdense fluid within the distal descending/proximal sigmoid colon as imaged #346. This may represent a site of intraluminal extravasation. Liquid stool is noted in the rectum. The appendix is not identified and reported surgically absent. Peritoneum: There is no intraperitoneal free air or abdominal ascites. Lymphadenopathy: None. Pelvic viscera: The prostate gland is enlarged and heterogeneous noting median lobe hypertrophy. The bladder wall is thickened and trabeculated indicating chronic outlet obstruction. There are left larger than right inguinal hernias. The left inguinal hernia contains a nonobstructed segment of colon. Skeletal structures: The skeletal structures are osteopenic. There is moderate lumbosacral spondylosis and mild scoliosis. No lytic or blastic lesions are seen. IMPRESSION: 1. There is moderate colonic diverticulosis without CT evidence of acute diverticulitis. 2. Hyperdense material is present within the distal descending/proximal sigmoid colon. This is nonspecific and may represent a site of intraluminal extravasation. This could be further assessed with endoscopy if clinically warranted. 3. There are left larger than right inguinal hernias. The left inguinal hernia contains a nonobstructed segment of the sigmoid colon. 4. Liquid stool is noted in the rectosigmoid. Correlate clinically for evidence of a diarrheal illness. 5. Additional findings as above. Hospital Course (1) Lower gastrointestinal hemorrhage: Patient was initially admitted to the ICU with a lower GI bleeding. Patient had dark red blood in his stool. His hemoglobin is followed every 8 hours. Was felt this was likely diverticulitis the patient had no pain with b leeding. On presentation, he had been on Coumadin with an INR 2.4. He was given 10 mg IM vitamin K. Later in the day of his admission as he continued to bleed, 2 units of fresh frozen plasma were also administered. GI evaluated the patient. Patient was prepped overnight on 08/13 into 08/14 and colonoscopy was performed on 08/[address] Jimenez. He noted diverticulosis without evidence of bleeding. There was a single ulcer in the sigmoid colon which was clipped. No bleeding ulcers were noted. And no specimens were collected. After this, the patient's hemoglobin to be stable and actually slowly increased. At the time of discharge, his hemoglobin is 11. After clearance from GI, his Coumadin was restarted at 2.5 mg at his outpatient dosing. His INR is 1.1 at time of discharge. Patient was seen by PT/OT the day prior to discharge. They felt the patient would benefit from acute rehab as he is home alone with his elderly . Patient will be discharged today with [facility]. Patient should continue his Coumadin as ordered with daily INRs until he is therapeutic. If patient has recurrent bleeding, he should be reevaluated in the emergency room. Otherwise patient is stable for close outpatient follow-up. (2) Atrial fibrillation: Continue metoprolol for rate control. Coumadin restarted as noted above. Follow INR is 4 appropriate anticoagulation, with INR between 2 and 3. 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 Acute lower GI bleed, now resolved 2. Paroxysmal atrial fibrillation on chronic Coumadin 3. Hypothyroidism by history 4. Hyperlipidemia by history 5. COPD by history Activity: Resume your previous activity Lifting: None Bathing: No limitations Weightbearing: Full weightbearing Non-emergency contact: Primary Care Provider and Assessment Specialist Call non-emergency contact if: your symptoms worsen and your temperature is above 101 Follow-up/Referrals: Prasanna Jimenez DO [Physician] - Tanner Hartman III, MD [Primary Care Provider] - Diet: Heart Healthy Addtl Attending Provider Instructions: Patient will require daily PT/INR until he is therapeutic on Coumadin. Further dosing adjustments to be made at [facility] Pending Studies at Discharge: No Stand-Alone Forms: My [facility] Skilled Items Patient informed of condition?: Yes DNR: No (Patient is DNI here but not DNR.) Discharge Level of Care: Acute rehab Communicable Disease: No Discharge Prognosis: Stable Lines: None Urinary Catheter: No Medications and DC Order Prescriptions: Continued primidone 50 mg tablet 50 mg PO DAILY RF: 0 warfarin 2.5 mg tablet See Rx Instructions PO UD 90 Days Qty: 90 RF: 1 sodium chloride 0.9 % aerosol,spray 1 sprays INTNAS Q4H PRN (Reason: Nasal Congestion) RF: 0 polyethylene glycol 3350 [Miralax] 17 gram/dose powder 17 gm PO BID RF: 0 potassium 99 mg tablet 99 mg PO DAILY RF: 0 levothyroxine [Synthroid] 175 mcg tablet 175 mcg PO DAILY Qty: 30 RF: 2 metoprolol succinate 25 mg tablet extended release 24 hr 25 mg PO DAILY Qty: 30 RF: 11 simvastatin 20 mg tablet 20 mg PO QPM Qty: 90 RF: 1 lansoprazole 30 mg capsule,delayed release(DR/EC) 30 mg PO BID Qty: 60 RF: 11 Metamucil 3.4 gram/5.4 gram powder 1 tbs PO BID Qty: 660 RF: 0 ProAir RespiClick 90 mcg/actuation aerosol powdr breath activated 2 puffs INH Q4H PRN (Reason: shortness of breath or wheezing) Qty: 1 RF: 3 Discharge Orders: Discharge Order (Routine); Ordered 08/17/19 Ordered By: Jared Cordero Admission Data Admit Date/Time: 08/13/19 23:03 Attending Provider: Jared Cordero Admit Provider: Kevon Billy Primary Care Provider: Tanner Hartman III Other Providers: Franco Sullivan ; Prasanna Jimenez ; [facility] Coding Level of Care Code D/C Day Management >30 mins Diagnoses Lower gastrointestinal hemorrhage K92.2 Atrial fibrillation I48.91 Rectal bleeding K62.5 Hyperlipidemia E78.5 Hypothyroidism E03.9 skilled nursing (current) use of anticoagulants Z79.01 COPD (chronic obstructive pulmonary disease) J44.9
== END 2019-08-17 14:22 | DRG 393 ==
LOC: ED 20:19 → SUATTDRO 23:03 → 2W 23:03 → 1E 08-14 01:29 → 2S 08-15 06:01

== ENCOUNTER 2025-04-06 08:19 | Inpatient (IN) ==
--- NOTE | 2025-04-06 08:48 | Emergency Department Note ---
History of Present Illness General Chief complaint: Fall Stated complaint: syncope, fall Time Seen by Provider: 04/06/25 08:24 Source: patient Mode of arrival: EMS Limitations: no limitations History of Present Illness Maximum Pain Intensity: 6 Patient is an 89-year-old male with history of atrial fibrillation on Coumadin, hypertension, hyperlipidemia who presents after a fall in the shower. He reports a syncopal episode and woke up on the shower floor. He lives in an independent living facility and his called EMS after she found him on the ground. He does have swelling and ecchymosis to the right ankle and abrasions to the right foot after the fall. Unknown head injury. EMS checked his blood pressure when they arrived and noted to be 69/46. He has had similar syncopal episodes before in the past related to his atrial fibrillation. Denies any prodrome of headache, chest pain, shortness of breath, abdominal pain, back pain. Patient did arrive in a c-collar but denies any neck pain at this time. No numbness, weakness or paresthesias in his extremities. Home Medications Medication Instructions Recorded Confirmed Type potassium 99 mg tablet 99 mg PO QDL 04/19/19 04/06/25 History psyllium husk 3.4 gram/5.4 gram 1 tbs PO BID #660 grams 08/13/19 04/06/25 Rx oral powder (Metamucil) acetaminophen 500 mg tablet 500 mg PO Q6H PRN Pain 12/22/23 04/06/25 History metoprolol succinate 25 mg 25 mg PO QAM #90 tabs 06/18/24 04/06/25 Rx tablet,extended release 24 hr amlodipine 2.5 mg tablet 2.5 mg PO BID #180 tabs 06/21/24 04/06/25 Rx lansoprazole 30 mg capsule,delayed 30 mg PO BID #180 caps 06/21/24 04/06/25 Rx release levothyroxine 175 mcg tablet 175 mcg PO QAM #90 tabs 12/07/24 04/06/25 Rx finasteride 5 mg tablet 5 mg PO DAILY #90 tabs 02/09/25 04/06/25 Rx peg 400-propylene glycol 0.4 %-0.3 1 drp ophthalmic (eye) DAILY PRN 03/15/25 04/06/25 History % eye drops (Systane Ultra) Dry Eye(S) polyethylene glycol 3350 17 17 g PO BID PRN constipation 03/15/25 04/06/25 History gram/dose oral powder (Miralax) simethicone 125 mg capsule 125 mg PO DAILY 03/15/25 04/06/25 History triamcinolone acetonide 0.1 % 1 applic topical BID PRN Other 03/15/25 04/06/25 History topical cream warfarin 2 mg tablet See Rx Instructions PO UD 03/15/25 04/06/25 History lidocaine 4 % topical patch 1 patch topical DAILY PRN Pain 03/30/25 04/06/25 History (Aspercreme (lidocaine)) primidone 50 mg tablet 75 mg PO TID 04/06/25 04/06/25 History simvastatin 20 mg tablet 0 mg PO QPM 04/06/25 04/06/25 History Allergies Allergy/AdvReac Type Severity Reaction Status Date / Time No Known Allergies Allergy Verified 04/06/25 10:13 Past Med/Surg History Problem List (Updated 04/06/25 @ 12:57 by Georges Bergman MD) Fracture, phalanx, foot (Acute) Fibula fracture (Acute) Syncope (Acute) Intertrigo Thrombosed external hemorrhoid Hemorrhoid thrombosis Rectal mass Deviated septum Cervicalgia Onychomycosis Leg cramping Scrotal itching Nummular eczema Carpal tunnel syndrome on both sides Gross hematuria Osteoarthritis of knees, bilateral Impaired fasting glucose BPH (benign prostatic hyperplasia) Familial tremor Hypertension Anemia COPD (chronic obstructive pulmonary disease) halfway (current) use of anticoagulants (Chronic) warfarin daily Hypothyroidism Hyperlipidemia Atrial fibrillation on warfarin--follows with PCP @ [facility] History History of anesthesia reaction Osteoarthritis Hammond's esophagus History of radioactive iodine thyroid ablation History of Graves' disease Hearing deficit Hematochezia Surgical History Hx of cataract extraction History of surgery History of prostate surgery History of transurethral resection of prostate History of esophagogastroduodenoscopy (EGD) History of hernia surgery History of appendectomy Status post correction of deviated nasal septum History of tooth extraction History of wisdom tooth extraction History of tonsillectomy Hx of colonoscopy (08/15/19) Family History Brother Tremor Colorectal cancer Other No family history of adverse response to anesthesia Denies family history of Ovarian cancer Prostate cancer Myocardial infarction Breast cancer Social History Smoking Status: Former smoker Tobacco Type: Declines Age Started Using Tobacco: 21; Age Quit Using Tobacco: 51; packs per day: 1; Second Hand Exposure: No; Do You Dip or Chew Tobacco: No; Hx Alcohol Use: Yes Alcohol type: beer Hx Substance Use: No Preferred Language: Yoruba Communication Ability: Effective Visual Impairment: No Limitations Hearing Ability: Use of Hearing Aid Glue Bone Crusher Required: No Beliefs That Will Affect Care: None marital status: Current Living Situation: Spouse current occupational status: retired 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 Physical Exam Vital Signs Vital Signs - 24 hr 04/06/25 08:25 04/06/25 08:27 04/06/25 08:30 Temperature 36.7 C Temperature Source Temporal Artery Scan Pulse Rate 101 H 60 Pulse Rate [Apical] Pulse Rate from SpO2 Sensor 60 Respiratory Rate 20 22 Respiratory Effort / Characteristics Non-Labored Spontaneous Respiratory Depth Normal Respiratory Pattern Regular Blood Pressure 136/74 105/68 Blood Pressure [Right Arm] Blood Pressure Mean 108 80 Blood Pressure Mean [Right Arm] Pulse Oximetry 94 96 Oxygen Delivery Method Room Air Sepsis Recent Fever Within 48 Hours No Sepsis New/Unexplained Change in Mental Status No Sepsis Action Taken by Nursing No Action Required 04/06/25 08:30 04/06/25 09:00 04/06/25 09:00 Temperature Temperature Source Pulse Rate 74 Pulse Rate [Apical] Pulse Rate from SpO2 Sensor 68 Respiratory Rate 16 Respiratory Effort / Characteristics Respiratory Depth Respiratory Pattern Blood Pressure 105/68 130/69 Blood Pressure [Right Arm] Blood Pressure Mean 84 96 Blood Pressure Mean [Right Arm] Pulse Oximetry 98 Oxygen Delivery Method Sepsis Recent Fever Within 48 Hours Sepsis New/Unexplained Change in Mental Status Sepsis Action Taken by Nursing 04/06/25 09:11 04/06/25 09:30 04/06/25 10:00 Temperature Temperature Source Pulse Rate 59 L 59 L Pulse Rate [Apical] Pulse Rate from SpO2 Sensor 59 L Respiratory Rate 19 Respiratory Effort / Characteristics Respiratory Depth Respiratory Pattern Blood Pressure 114/70 Blood Pressure [Right Arm] Blood Pressure Mean 89 Blood Pressure Mean [Right Arm] Pulse Oximetry 96 Oxygen Delivery Method Sepsis Recent Fever Within 48 Hours Sepsis New/Unexplained Change in Mental Status Sepsis Action Taken by Nursing 04/06/25 10:00 04/06/25 11:00 04/06/25 11:00 Temperature Temperature Source Pulse Rate 54 L 58 L Pulse Rate [Apical] 60 Pulse Rate from SpO2 Sensor 54 L 58 L Respiratory Rate 17 20 13 Respiratory Effort / Characteristics Respiratory Depth Respiratory Pattern Blood Pressure 115/72 Blood Pressure [Right Arm] 115/72 Blood Pressure Mean 86 Blood Pressure Mean [Right Arm] 86 Pulse Oximetry 94 96 96 Oxygen Delivery Method Room Air Room Air Room Air Sepsis Recent Fever Within 48 Hours Sepsis New/Unexplained Change in Mental Status Sepsis Action Taken by Nursing 04/06/25 11:30 04/06/25 12:00 04/06/25 12:12 Temperature Temperature Source Pulse Rate 58 L 58 L Pulse Rate [Apical] 58 L Pulse Rate from SpO2 Sensor 58 L 59 L Respiratory Rate 15 18 18 Respiratory Effort / Characteristics Respiratory Depth Respiratory Pattern Blood Pressure 105/68 113/68 Blood Pressure [Right Arm] 113/68 Blood Pressure Mean 80 83 Blood Pressure Mean [Right Arm] 83 Pulse Oximetry 94 96 93 Oxygen Delivery Method Room Air Room Air Room Air Sepsis Recent Fever Within 48 Hours Sepsis New/Unexplained Change in Mental Status Sepsis Action Taken by Nursing 04/06/25 12:30 Temperature Temperature Source Pulse Rate Pulse Rate [Apical] Pulse Rate from SpO2 Sensor Respiratory Rate Respiratory Effort / Characteristics Respiratory Depth Respiratory Pattern Blood Pressure 114/73 Blood Pressure [Right Arm] Blood Pressure Mean 95 Blood Pressure Mean [Right Arm] Pulse Oximetry Oxygen Delivery Method Sepsis Recent Fever Within 48 Hours Sepsis New/Unexplained Change in Mental Status Sepsis Action Taken by Nursing Primary Survey Airway: Intact Breathing: Normal, breath sounds equal bilaterally Circulation: Skin warm, well perfused, capillary refill less than 2 seconds Disability Pupils: Equal and reactive to light, 3mm, brisk GCS: 15, E = 4 V=5 M= 6 Motor Function: Moves all extremities. Sensory: No deficits Secondary Survey GENERAL: NAD, non-toxic. HEAD: Normal cephalic atraumatic EYE EXAM: Normal conjunctiva. PERRL, no anisocoria and EOM's grossly intact w/o pain. OROPHARYNX: Moist mucus membranes. Grossly normal dentition. NECK: Supple, trachea midline, no midline C spine TTP. Chest: No reproducible chest wall pain. LUNGS: Clear to auscultation. Normal chest wall mechanics. HEART: NSR, no MRG. ABDOMEN: Abdomen soft, non-tender, no obvious bruising, normo-active bowel sounds, no masses, no rebound or guarding. BACK: No CVA TTP. No midline thoracic or lumbar TTP. SKIN: No rashes and no bruising. UPPER EXTREMITIES: Upper extremities are grossly normal. Well-perfused and compartments are soft throughout. LOWER EXTREMITIES: Ecchymosis and edema to the right medial malleoli, superficial abrasions to the right first MTP and plantar surface of great toe, otherwise grossly normal, no edema. Well-perfused and compartments are soft throughout. NEURO EXAM: A&O x3, cranial nerves II-XII grossly intact, normal speech, moves all 4 extremities. Course Administered Medications Discontinued Medications Acetaminophen (Ofirmev) 1,000 mg in 100 mls @ 400 mls/hr IV NOW STA Stop: 04/06/25 09:16 Last Infusion: 04/06/25 09:49 Dose: Infused Documented By: Admin: 04/06/25 09:12 Dose: 400 mls/hr Documented By: DAVID Morphine Sulfate (Morphine Sulfate 2 Mg/Ml Carp) 2 mg IV NOW STA Stop: 04/06/25 11:00 Last Admin: 04/06/25 11:14 Dose: 2 mg Documented By: [facility] Medical Decision Making Differential Diagnosis DDx includes but not limited to: Cardiac arrhythmia, orthostatic hypotension acute anemia, head contusion, SDH, SAH, basilar skull fracture, ankle fracture, foot fracture Medical Records Attestation: I reviewed the patient's medical records. Home Medications Current Medication List: was personally reviewed by me Laboratory Data Attestation: I reviewed the patient's lab results. 04/06/25 08:50 04/06/25 08:50 Lab Results 04/06/25 04/06/25 Range/Units 08:50 10:45 WBC 8.40 (4.8-10.8) K/ul RBC 4.48 L (4.70-6.10) M/uL Hgb 14.0 (14.0-18.0) g/dL Hct 41.3 L (42.0-52.0) % MCV 92.2 (80.0-100.0) fL MCH 31.3 (25.0-34.0) pg MCHC 33.9 (32.0-36.0) g/dL RDW Std Deviation 43.1 (36.4-46.3) fL RDW Coeff of [place] 12.8 (11.5-14.5) % Plt Count 199 (130-400) K/uL MPV 8.9 L (9.4-12.4) fL Immature Gran % (Auto) 0.8 % Neut % (Auto) 81.5 % Lymph % (Auto) 6.9 % Crawford % (Auto) 9.2 % Eos % (Auto) 1.0 % Baso % (Auto) 0.6 % Neut # (Auto) 6.85 H (1.40-6.50) K/uL Lymph # (Auto) 0.58 L (1.20-3.40) K/uL Crawford # (Auto) 0.77 H (0.11-0.59) K/uL Eos # (Auto) 0.08 (0.00-0.50) K/uL Baso # (Auto) 0.05 (0.00-0.20) K/uL Immature Gran # (Auto) 0.07 (0.01-0.20) K/uL Sodium 136 (136-145) mmol/L Potassium 4.3 (3.5-5.1) mmol/L Chloride 101 (98-107) mmol/L Carbon Dioxide 28 (21-32) mmol/L Anion Gap 7 (3-11) BUN 12 (6-23) mg/dl Creatinine 1.04 (0.6-1.4) mg/dl Est Cr Clr Drug Dosing Not Reportable eGFR 69.06 BUN/Creatinine Ratio 11.5 (10-20) Glucose 119 H (70-99(Fasting)) mg/dl Calcium 8.7 (8.6-10.3) mg/dl Magnesium 1.8 (1.7-2.4) mg/dl Total Bilirubin 0.4 (0.2-1.0) mg/dl AST 15 (13-39) U/L ALT 7 (7-52) U/L Alkaline Phosphatase 66 (34-104) U/L Troponin I High Sens 7.0 (0-20) pg/ml Total Protein 6.6 (6.0-8.3) gm/dl Albumin 4.0 (3.4-5.0) gm/dl Globulin 2.6 (2.5-4.0) gm/dl Albumin/Globulin Ratio 1.5 (0.9-2) Urine Color Yellow Urine Appearance Clear (Clear) Urine pH 6.0 (4.5-7.5) Ur Specific [place] 1.018 (1.000-1.030) Urine Protein Trace H (Negative) Urine Glucose (UA) Negative (Negative) Urine Ketones Trace H (Negative) Urine Blood Trace H (Negative) Urine Nitrite Negative (Negative) Urine Bilirubin Negative (Negative) Urine Urobilinogen Negative (Negative) Ur Leukocyte Esterase Negative (Negative) Urine WBC (Auto) 0-5 (0-5) /hpf Urine RBC (Auto) 3-5 H (0-2) /hpf U Hyaline Cast (Auto) 3-5 H (0-2) /lpf U Epithel Cells (Auto) 0-2 (0-2) /hpf Urine Bacteria (Auto) None Seen (None Seen) Urine Comment Imaging Data My Impression: Acute displaced right fibular fracture, acute mildly displaced fracture of the proximal phalanx of the great toe No acute cardiopulmonary process noted on chest x-ray Radiologist's Impression: Ankle X-Ray 04/06/25 08:36 XR ankle RT min 3V routine CLINICAL HISTORY: fall/ injury COMPARISON: None FINDINGS: Right ankle soft tissue swelling is present. There is an acute oblique mildly displaced distal right fibular fracture which extends from the level of the tibiotalar joint 4.8 cm proximally. No acute distal right tibial fracture is identified. There is no ankle mortise widening. Small plantar calcaneal spur is present. IMPRESSION: 1. Acute oblique displaced distal right fibular fracture. 2. No ankle mortise widening. 3. Right ankle soft tissue swelling. ACT 112: Negative or not required by law. Electronically signed by: Mateusz Fisher M.D. 04/06/2025 9:01 AM Chest X-Ray 04/06/25 08:36 XR chest 1V portable CLINICAL HISTORY: syncope COMPARISON STUDY: 12/16/2024 FINDINGS: The cardiac and mediastinal contours remain stable. There is a prominent left cardiophrenic angle fat pad. There is no failure. There is no focal pulmonary consolidation. There are no pleural effusions. There is no pneumothorax. There is slight deviation of the trachea at the thoracic inlet to the left of midline. This is nonspecific but may be related to positioning. IMPRESSION: No active disease in the chest. ACT 112: Negative or not required by law. Electronically signed by: Angelo Ramos M.D. 04/06/2025 8:57 AM Foot X-Ray 04/06/25 08:36 XR foot RT 2V HISTORY: 89 years-old Male R foot acute pain of the right foot status post fall COMPARISON: 01/18/2019 TECHNIQUE: 2 views of the right foot FINDINGS: Demineralized appearance of the bones. Multifocal osteoarthritis is predominantly mild. Hallux valgus redemonstrated. There is an acute intra- articular comminuted fracture involving the medial base of the first proximal phalanx with medial displacement of 4 mm. Mild associated soft tissue swelling. There is an acute mildly displaced distal fibular fracture with adjacent soft tissue swelling. Small calcaneal enthesophytes. Midfoot alignment appears anatomic. IMPRESSION: 1. Acute, comminuted and mildly displaced intra-articular fracture of the first proximal phalanx. 2. Acute mildly displaced distal fibular fracture. ACT 112: Negative or not required by law. The above report was generated using voice recognition software. It may contain grammatical, syntax or spelling errors. Electronically signed by: Xu Cowan M.D. 04/06/2025 8:[address] 04/06/25 08:36 CT SCAN OF THE BRAIN WITHOUT IV CONTRAST CLINICAL HISTORY: Syncope COMPARISON STUDY: TECHNIQUE: Unenhanced axial CT scan of the brain was performed from the vertex to the skull base. A dose lowering technique was utilized adhering to the principles of ALARA. CT DOSE: 547.75 mGy.cm FINDINGS: No intra or extra-axial mass lesions are visualized. There is no CT evidence of acute cortical infarction. There is no midline shift. The ventricular system is of normal size and configuration for age. There are mild age-related changes. Minimal white matter hypodensities are likely a small vessel basis. There is no evidence of acute hemorrhage. 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 No calvarial fractures are visualized. There are sclerotic changes involving the right inferior mastoid. IMPRESSION: No acute intracranial findings. ACT 112: Negative or not required by law. Electronically signed by: Angelo Ramos M.D. 04/06/2025 9:10 AM Blood Pressure Blood Pressure Findings: Normal blood pressure MDM Narrative Patient is a 89-year-old male with history as seen above who presents after syncopal event in the shower today. Initially hypotensive per EMS. Return to the normal blood pressure upon arrival without any intervention. Patient had prior syncopal events similar to this in the past. Unknown head injury. No evidence of head or neck trauma on my examination. He is on Coumadin at baseline for his A-fib. Obvious swelling and ecchymosis of the right ankle and right first toe. CT of the head nonconcerning for acute traumatic injury. X- ray of the ankle shows a acute mildly displaced right fibular fracture. X-ray of the foot shows a comminuted mildly displaced first proximal phalanx fracture as well. Discussed the case with Dr. Barclay with orthopedics. He recommends sugar-tong and posterior short leg splint and nonweightbearing status. No concerning findings on EKG related to his syncopal event. Lab work was reviewed and nonconcerning as well. Will admit for syncope workup and PT evaluation in the setting of his nonweightbearing status. Stable for admission to hospitalist service. Impression & Plan Syncope, Fibula fracture, Fracture, phalanx, foot Discharge Plan Visit Data Chief Complaint: Fall Stated Complaint: syncope, fall ED Provider: Georges Bergman Discharge Problem: Syncope, Fibula fracture, Fracture, phalanx, foot Patient Disposition: Admitted As Inpatient Condition: Good Forms Stand Alone Forms: My [facility] Prescriptions Prescriptions: No Action warfarin 2 mg tablet See Rx Instructions PO UD Rx Instructions: 4mg q Friday, 2mg x 6 days per [facility] orally use as directed; triamcinolone acetonide 0.1 % cream 1 applic topical BID PRN (Reason: Other) lidocaine [Aspercreme (lidocaine)] 4 % adhesive patch,medicated 1 patch topical DAILY PRN (Reason: Pain) potassium 99 mg tablet 99 mg PO QDL Patient Comments: after lunch polyethylene glycol 3350 [Miralax] 17 gram/dose powder 17 g PO BID PRN (Reason: constipation) simethicone 125 mg capsule 125 mg PO DAILY Rx Instructions: as needed for gastric reflux Systane Ultra 0.4-0.3 % drops 1 drp ophthalmic (eye) DAILY PRN (Reason: Dry Eye(S)) Rx Instructions: as needed for dry eyes acetaminophen 500 mg tablet 500 mg PO Q6H PRN (Reason: Pain) metoprolol succinate 25 mg tablet extended release 24 hr 25 mg PO QAM Qty: 90 3RF lansoprazole 30 mg capsule,delayed release(DR/EC) 30 mg PO BID Qty: 180 3RF amlodipine 2.5 mg tablet 2.5 mg PO BID Qty: 180 3RF Rx Instructions: TAKE ONE TABLET BY MOUTH 2 TIMES A DAY levothyroxine 175 mcg tablet 175 mcg PO QAM Qty: 90 3RF Rx Instructions: TAKE ONE TABLET BY MOUTH EVERY DAY finasteride 5 mg tablet 5 mg PO DAILY Qty: 90 3RF Metamucil 3.4 gram/5.4 gram powder 1 tbs PO BID Qty: 660 0RF Rx Instructions: mix into at least 8 oz of water or juice before administering primidone 50 mg tablet 75 mg PO TID Rx Instructions: TAKE ONE TABLET BY MOUTH 3 TIMES A DAY simvastatin 20 mg tablet 0 mg PO QPM Patient Comments: 04/06- per , they have medication on hold for the next 29 days. Referrals Referrals: Jose Oliveira MD [Primary Care Provider] -
--- NOTE | 2025-04-06 08:58 | XRay Report ---
XR chest 1V portable CLINICAL HISTORY: syncope COMPARISON STUDY: 12/16/2024 FINDINGS: The cardiac and mediastinal contours remain stable. There is a prominent left cardiophrenic angle fat pad. There is no failure. There is no focal pulmonary consolidation. There are no pleural effusions. There is no pneumothorax. There is slight deviation of the trachea at the thoracic inlet t o the left of midline. This is nonspecific but may be related to positioning. IMPRESSION: No active disease in the chest. ACT 112: Negative or not required by law. Electronically signed by: Angelo Ramos M.D. 04/06/2025 8:57 AM
--- NOTE | 2025-04-06 08:58 | XRay Report ---
XR foot RT 2V HISTORY: 89 years-old Male R foot acute pain of the right foot status post fall COMPARISON: 01/18/2019 TECHNIQUE: 2 views of the right foot FINDINGS: Demineralized appearance of the bones. Multifocal osteoarthritis is predominantly mild. Hallux valgus redemonstrated. There is an acute intra-articular comminuted fracture involving the medial base of t he first proximal phalanx with medial displacement of 4 mm. Mild associated soft tissue swelling. The re is an acute mildly displaced distal fibular fracture with adjacent soft tissue swelling. Small lelo caneal enthesophytes. Midfoot alignment appears anatomic. IMPRESSION: 1. Acute, comminuted and mildly displaced intra-articular fracture of the first proximal phalanx. 2. Acute mildly displaced distal fibular fracture. ACT 112: Negative or not required by law. The above report was generated using voice recognition software. It may contain grammatical, syntax o r spelling errors. Electronically signed by: Xu Cowan M.D. 04/06/2025 8:57 AM
[2025-04-06 09:01] LABS: Hematocrit (blood only) 41.3 % (42.0-52.0); Hemoglobin 14.0 g/dL (14.0-18.0); Immature Granulocytes # (auto) 0.07 K/uL (0.01-0.20); Immature Granulocytes % (auto) 0.8 %; Mean Corpuscular Hemoglobin 31.3 pg (25.0-34.0); Mean Corpuscular Volume 92.2 fL (80.0-100.0); Platelet Count 199 K/uL (130-400); RDW Standard Deviation 43.1 fL (36.4-46.3); Red Blood Count 4.48 M/uL (4.70-6.10); White Blood Count 8.40 K/ul (4.8-10.8)
--- NOTE | 2025-04-06 09:03 | XRay Report ---
XR ankle RT min 3V routine CLINICAL HISTORY: fall/ injury COMPARISON: None FINDINGS: Right ankle soft tissue swelling is present. There is an acute oblique mildly displaced di stal right fibular fracture which extends from the level of the tibiotalar joint 4.8 cm proximally. N o acute distal right tibial fracture is identified. There is no ankle mortise widening. Small plantar calcaneal spur is present. IMPRESSION: 1. Acute oblique displaced distal right fibular fracture. 2. No ankle mortise widening. 3. Right ankle soft tissue swelling. ACT 112: Negative or not required by law. Electronically signed by: Mateusz Fisher M.D. 04/06/2025 9:01 AM
--- NOTE | 2025-04-06 09:11 | CT Scan Report ---
CT SCAN OF THE BRAIN WITHOUT IV CONTRAST CLINICAL HISTORY: Syncope COMPARISON STUDY: TECHNIQUE: Unenhanced axial CT scan of the brain was performed from the vertex to the skull base. A dose lowering technique was utilized adhering to the principles of ALARA. CT DOSE: 547.75 mGy.cm FINDINGS: No intra or extra-axial mass lesions are visualized. There is no CT evidence of acute cortical infarc tion. There is no midline shift. The ventricular system is of normal size and configuration for age. There are mild age-related changes. Minimal white matter hypodensities are likely a small vessel basi s. There is no evidence of acute hemorrhage. 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 No calvarial fractures are visualized. There are sclerotic changes involving the right inferior mastoid. IMPRESSION: No acute intracranial findings. ACT 112: Negative or not required by law. Electronically signed by: Angelo Ramos M.D. 04/06/2025 9:10 AM
[2025-04-06] MEDS: ACETAMINOPHEN 1,000 MG/100 ML VIAL IV STA (09:12)
[2025-04-06 09:18] LABS: Alanine Aminotransferase 7 U/L (7-52); Albumin Globulin Ratio 1.5 (0.9-2); Albumin Level 4.0 gm/dl (3.4-5.0); Alkaline Phosphatase 66 U/L (34-104); Anion Gap 7 (3-11); Bilirubin,Total 0.4 mg/dl (0.2-1.0); Blood Urea Nitrogen 12 mg/dl (6-23); Calcium 8.7 mg/dl (8.6-10.3); Carbon Dioxide 28 mmol/L (21-32); Chloride 101 mmol/L (98-107); Globulin 2.6 gm/dl (2.5-4.0); Glucose 119 mg/dl (70-99(Fasting)); Magnesium 1.8 mg/dl (1.7-2.4); Potassium 4.3 mmol/L (3.5-5.1); Sodium 136 mmol/L (136-145); Total Protein 6.6 gm/dl (6.0-8.3)
--- NOTE | 2025-04-06 10:38 | Electrocardiogram Report ---
Test Reason : Blood Pressure : */* mmHG Vent. Rate : 64 BPM Atrial Rate : 64 BPM P-R Int : 172 ms QRS Dur : 160 ms QT Int : 456 ms P-R-T Axes : 33 37 43 degrees QTcB Int : 470 ms Normal sinus rhythm Right bundle branch block Abnormal ECG When compared with ECG of 16-Dec-2024 19:44, NH interval has decreased Confirmed by Evans Barclay ([id number]) on 04/06/2025 10:38:03 AM Referred By: Confirmed By: Evans Barclay
[2025-04-06 11:05] LABS: Appearance Urine Clear (Clear); Bacteria Urine Automated None Seen (None Seen); Epithelial Cell Urine Auto 0-2 /hpf (0-2); Glucose Urine UA Negative (Negative); WBC Urine Automated 0-5 /hpf (0-5)
[2025-04-06] MEDS: MoRPHine SULFATE 2 MG/ML CARP IV STA (11:14)
--- NOTE | 2025-04-06 12:55 | History & Physical Report ---
Date of Service April 06, 2025 Assessment & Plan (1) Syncope: (2) Fibula fracture: (3) Fracture, phalanx, foot: (4) Atrial fibrillation: Plan In summary this is an 89-year-old male who presents after an episode of unwitnessed syncope with subsequent repeated episode and a short time interval with consequential right first proximal phalangeal and right distal fibular fractures #Syncope Unwitnessed episode; no notable prodromal symptoms nor witnessed incontinence of stool or urine; pertinent comorbidities include paroxysmal atrial fibrillation, hypertension; initial EKG was unremarkable; given the patient's recurrent episodes in a short time interval with regained consciousness and lack of findings that would be more consistent with a seizure type pathology, I am concerned that this is a primarily cardiovascular event with either rapid or slow ventricular response in the setting of atrial fibrillation -Continuous vp transportation for first 24 hours then reassess -Follow daily renal function panel, magnesium; goal potassium greater than 4, ma gnesium greater than 2 -Previous TTE in 2019; repeat ordered -If without evidence of significant cardiac arrhythmia during hospitalization, would strongly consider ambulatory cardiac monitoring given the patient's presentation - Pending orthostatic vital signs #Right distal fibular and first proximal phalangeal fractures Orthopedic surgery was consulted by the patient's emergency department provider regarding their fibula and first right phalangeal fractures; advised to place the patient in Ortho-Glass splint, to remain nonweightbearing; pain regimen as detailed below Start acetaminophen 1000 mg p.o. every 8 hours Start hydromorphone 2 mg p.o. 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 Gil is an 89-year-old male whose active medical conditions include paroxysmal atrial fibrillation, hyperlipidemia, hypertension, acquired hypothyro idism among other chronic medical conditions who presented to the [facility] on 04/06 after an unwitnessed syncopal event at his personal care facility resulting in fall.The patient describes that they were up and about as usual in the morning, after shaving under their shower and while showering at some point experienced a syncopal event that resulted in their collapse to the floor. They do not recall any prodromal symptoms, nor was this episode witnessed. The patient's spouse was present at the time, heard the patient's fall in the shower and subsequently evaluated them and called nursing assistance to their room. The patient regained rapid consciousness, was assisted to a shower chair but then again experienced a syncopal event and was aroused shortly thereafter. Upon arrival by EMS the patient was found to be profoundly hypotensive but regained their consciousness rather rapidly and their vital signs improved thereafter. There was no noted incontinence of stool nor urine. The patient was complaining of right lower extremity pain around the ankle after their fall. The patient endorses recent medication changes including titration of their warfarin, increase of their primidone from 50 to 75 mg p.o. 3 times daily. They have not noted any symptomatic improvement with the latter medication change. The patient denies any symptoms of lightheadedness, dizziness, or unsteady gait after rising from a seated or supine position over the past few weeks. They deny any changes in their urinary output, palpitations, chest pain, shortness of breath. They do endorse a intermittently productive cough for approximately the past 10 to 14 days however denies any purulent sputum or hemoptysis. Allergies Allergy/AdvReac Type Severity Reaction Status Date / Time No Known Allergies Allergy Verified 04/06/25 10:13 Home Medications Medication Instructions Recorded Confirmed Type potassium 99 mg tablet 99 mg PO QDL 04/19/19 04/06/25 History psyllium husk 3.4 gram/5.4 gram 1 tbs PO BID #660 grams 08/13/19 04/06/25 Rx oral powder (Metamucil) acetaminophen 500 mg tablet 500 mg PO Q6H PRN Pain 12/22/23 04/06/25 History metoprolol succinate 25 mg 25 mg PO QAM #90 tabs 06/18/24 04/06/25 Rx tablet,extended release 24 hr amlodipine 2.5 mg tablet 2.5 mg PO BID #180 tabs 06/21/24 04/06/25 Rx lansoprazole 30 mg capsule,delayed 30 mg PO BID #180 caps 06/21/24 04/06/25 Rx release levothyroxine 175 mcg tablet 175 mcg PO QAM #90 tabs 12/07/24 04/06/25 Rx finasteride 5 mg tablet 5 mg PO DAILY #90 tabs 02/09/25 04/06/25 Rx peg 400-propylene glycol 0.4 %-0.3 1 drp ophthalmic (eye) DAILY PRN 03/15/25 1 06/07/24 History % eye drops (Systane Ultra) Dry Eye(S) polyethylene glycol 3350 17 17 g PO BID PRN constipation 03/15/25 04/06/25 History gram/dose oral powder (Miralax) simethicone 125 mg capsule 125 mg PO DAILY 03/15/25 04/06/25 History triamcinolone acetonide 0.1 % 1 applic topical BID PRN Other 03/15/25 04/06/25 History topical cream warfarin 2 mg tablet See Rx Instructions PO UD 03/15/25 04/06/25 History lidocaine 4 % topical patch 1 patch topical DAILY PRN Pain 03/30/25 04/06/25 History (Aspercreme (lidocaine)) primidone 50 mg tablet 75 mg PO TID 04/06/25 04/06/25 History simvastatin 20 mg tablet 0 mg PO QPM 04/06/25 04/06/25 History Past Med/Surg History Problem List (Updated 04/06/25 @ 13:29 by Jose Daniel Velez DO) Fracture, phalanx, foot (Acute) Fibula fracture (Acute) Syncope (Acute) Intertrigo Thrombosed external hemorrhoid Hemorrhoid thrombosis Rectal mass Deviated septum Cervicalgia Onychomycosis Leg cramping Scrotal itching Nummular eczema Carpal tunnel syndrome on both sides Gross hematuria Osteoarthritis of knees, bilateral Impaired fasting glucose BPH (benign prostatic hyperplasia) Familial tremor Hypertension Anemia COPD (chronic obstructive pulmonary disease) detention (current) use of anticoagulants (Chronic) warfarin daily Hypothyroidism Hyperlipidemia Atrial fibrillation on warfarin--follows with PCP @ [facility] History History of anesthesia reaction roughly 6 yrs ago--unable to void for 12 hours after salivary gland procedure--no other issues Osteoarthritis Hammond's esophagus History of radioactive iodine thyroid ablation History of Graves' disease had radioactive iodine ablation Hearing deficit Hematochezia Surgical History Hx of cataract extraction rt. History of surgery salivary gland procedure History of prostate surgery TUNA procedure History of transurethral resection of prostate History of esophagogastroduodenoscopy (EGD) History of hernia surgery History of appendectomy Status post correction of deviated nasal septum History of tooth extraction History of wisdom tooth extraction History of tonsillectomy Hx of colonoscopy (08/15/19) done for LGIB, Dr Jimenez. sigmoid tics, sigmoid ulcer and internal hemorrhoids but no bleeding Family History Brother Tremor Colorectal cancer Other No family history of adverse response to anesthesia Denies family history of Ovarian cancer Prostate cancer Myocardial infarction Breast cancer Social History Smoking Status: Former smoker Tobacco Type: Declines Age Started Using Tobacco: 21; Age Quit Using Tobacco: 51; packs per day: 1; Second Hand Exposure: No; Do You Dip or Chew Tobacco: No; Hx Alcohol Use: Yes Alcohol type: beer Hx Substance Use: No Preferred Language: Greenlandic Communication Ability: Effective Visual Impairment: No Limitations Hearing Ability: Use of Hearing Aid Flavor Room Worker Required: No Beliefs That Will Affect Care: None marital status: Current Living Situation: Spouse current occupational status: retired 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 Feels Safe at Home: Yes Childhood Exposure to Second-Hand Smoke: Yes Diet: regular caffeine: Yes Dental Care, Regularly: Yes Physical Activity Frequency: Does not Exercise Seatbelt Use: always Sunscreen Use: No Assistive Devices: Glasses and Hearing Aid - Bilateral Review of Systems Review of Systems: Review of constitutional, cardiovascular, pulmonary, neurologic, musculoskeletal systems was unremarkable except for pertinent positive and negative findings discussed above Physical Exam Physical Exam: General: Elderly male in no acute distress Vital Signs: Reviewed HEENT: Moist mucous membranes; pupils equally round and reactive to light Pulmonary: Symmetric chest wall excursion without restriction; clear to auscultation bilaterally Cardiovascular: Bradycardic rate and regular rhythm without murmurs, rubs, or gallops; S1 and S2 normal; right radial pulse 2+ with brisk capillary refill of the upper and lower extremity nailbeds Gastrointestinal: Soft, nontender Musculoskeletal: Right leg in Ortho-Glass splint; exposed toes have brisk capillary refill with intact though limited range of motion and sensation Neurologic: Cranial nerves II through XII grossly intact Skin: Diffuse seborrheic keratoses of the posterior thorax Results & Data Results & Data Vital Signs (Past 12 Hours) Vital Signs Temp Pulse Pulse Resp BP BP Pulse Ox 04/06/25 12:30 114/73 04/06/25 12:12 58 L 18 113/68 93 04/06/25 12:00 58 L 18 113/68 96 04/06/25 11:30 58 L 15 105/68 94 04/06/25 11:00 58 L 13 115/72 96 04/06/25 11:00 60 20 115/72 96 04/06/25 10:00 54 L 17 94 04/06/25 10:00 114/70 04/06/25 09:30 59 L 19 96 04/06/25 09:11 59 L 04/06/25 09:00 130/69 04/06/25 09:00 74 16 98 04/06/25 08:30 105/68 04/06/25 08:30 60 22 96 04/06/25 08:27 36.7 C 101 H 20 105/68 94 04/06/25 08:25 136/74 O2 Del Method 04/06/25 12:30 04/06/25 12:12 Room Air 04/06/25 12:00 Room Air 04/06/25 11:30 Room Air 04/06/25 11:00 Room Air 04/06/25 11:00 Room Air 04/06/25 10:00 Room Air 04/06/25 10:00 04/06/25 09:30 04/06/25 09:11 04/06/25 09:00 04/06/25 09:00 04/06/25 08:30 04/06/25 08:30 04/06/25 08:27 Room Air 04/06/25 08:25 Diagnostic Findings Right intra-articular first proximal phalanx comminuted and mildly displaced fracture with right distal mildly displaced fibular fracture ECG Additional Comments: Normal sinus rhythm; right bundle branch block remains; no evidence of ischemic injury Code Status & VTE Plan Code Status Full code VTE Prophylaxis Plan VTE Prophylaxis will be ordered: No Reason for no VTE drug order: Contraindicated PG Care Time/CCT Total # of Minutes Spent Total Time Spent with Patient: Total time spent is greater than 50% in coordination of care (as documented) at patient's floor/unit and/or counseling patient: Coding Level of Care Code 39518 INT INP/OBS CARE 2/55MIN Diagnoses Syncope, unspecified syncope type R55 Syncope type: unspecified Other closed fracture of distal end of right fibula, initial encounter S82.831A Encounter type: initial encounter Fibula location: distal Fracture type: closed Fracture morphology: other fracture Laterality: right Closed displaced fracture of proximal phalanx of right great toe, initial encounter S92.411A Encounter type: initial encounter Toe: great toe Fracture type: closed Phalanx: proximal Fracture alignment: displaced Laterality: right Paroxysmal atrial fibrillation I48.0 Atrial fibrillation type: paroxysmal (1) Syncope Syncope type: unspecified Qualified Code(s): R55 - Syncope and collapse (2) Fibula fracture Encounter type: initial encounter Fibula location: distal Fracture type: closed Fracture morphology: other fracture Laterality: right Qualified Code(s): S82.831A - Other fracture of upper and lower end of right fibula, initial encounter for closed fracture (3) Fracture, phalanx, foot Encounter type: initial encounter Toe: great toe Fracture type: closed Phalanx: proximal Fracture alignment: displaced Laterality: right Qualified Code(s): S92.411A - Displaced fracture of proximal phalanx of right great toe, initial encounter for closed fracture (4) Atrial fibrillation Atrial fibrillation type: paroxysmal Qualified Code(s): I48.0 - Paroxysmal atrial fibrillation
[2025-04-06 13:04] LABS: INR 2.2 (0.9-1.1); Prothrombin Time 22.5 Seconds (9.0-12.0)
--- NOTE | 2025-04-06 14:53 | XCELERA ---
[id number]
[2025-04-06] MEDS ORDERED: HYDROmorphone INJ 0.5 MG/0.5 ML SYR IV PRN (15:00)
[2025-04-06] MEDS: WARFARIN SOD 2 MG TAB PO SCH (16:15)
[2025-04-06] MEDS: ACETAMINOPHEN 500 MG TAB PO SCH (16:15)
[2025-04-06] MEDS: PRIMIDONE 50 MG TAB PO SCH (16:15)
--- NOTE | 2025-04-06 16:52 | Orthopedic Consultation ---
Date of Consultation April 06, 2025 Assessment & Plan (1) Fibula fracture: (2) Fracture, phalanx, foot: (3) Syncope: (4) Impaired fasting glucose: (5) BPH (benign prostatic hyperplasia): (6) Hypertension: (7) COPD (chronic obstructive pulmonary disease): (8) detention (current) use of anticoagulants: (9) Hypothyroidism: (10) Atrial fibrillation: Plan 89-year-old gentleman presents to the hospital after a syncopal episode resulting in fall. During the fall he sustained a fracture of the right distal fibula and right great toe proximal phalanx. I do long discussion with the patient regarding the nature of these injuries. We discussed in great detail the pathoanatomy, pathophysiology, treatment options. I expressed to him that in general, my suspicion is that his great toe proximal phalanx fracture has a ability to heal nonoperatively, however I would prefer to perform a stress examination to ensure no significant valgus instability. The patient does have a chronic bunion type deformity which he states is unchanged from prior. With regards to the patient's distal fibular fracture, this appears to be a Hale B type fracture. I discussed in great detail the pathoanatomy, pathophysiology, treatment options. In general, a stress examination of the ankle is performed with these type of injuries to ensure no medial clear space widening. My recommendation would be to perform this prior to making any surgical decisions, and at that point we could discuss both operative and nonoperative care. Given the patient's current syncopal episode as well as his ongoing workup for this, we will defer any stress examinations of his foot and ankle until this has been completed. Should the patient complete his syncopal workup and be deemed stable, orthopedically, we would not plan to fix this fracture while he is admitted during this hospitalization as the ankle swelling is likely too great to permit safe surgical passage. My recommendation at current is to continue in his well- padded below-knee splint and remain nonweightbearing I will continue to follow his hospital course to determine appropriate next steps. All the patient's questions were answered to his satisfaction. History of Present Illness Reason for Consultation: right foot and ankle pain Attending Physician: Jose Daniel Velez DO History of Present Illness Mr. Gil is an 89-year-old male whose PMH includes paroxysmal atrial fibrillation, hyperlipidemia, hypertension, acquired hypothyroidism among other chronic medical conditions who presented to the [facility] on 04/06 after an unwitnessed syncopal event at his personal care facility resulting in fall. The patient describes that they were up and about as usual in the morning, after shaving under their shower and while showering at some point experienced a syncopal event that resulted in their collapse to the floor. They do not recall any prodromal symptoms, nor was this episode witnessed. The patient's spouse was present at the time, heard the patient's fall in the shower and subsequently evaluated them and called nursing assistance to their room. The patient regained rapid consciousness, was assisted to a shower chair but then again experienced a syncopal event and was aroused shortly thereafter. Upon arrival by EMS the patient was found to be profoundly hypotensive but regained their consciousness rather rapidly and their vital signs improved thereafter. There was no noted incontinence of stool nor urine. The patient was complaining of right lower extremity pain around the ankle after their fall. The patient endorses recent medication changes including titration of their warfarin, increase of their primidone from 50 to 75 mg p.o. 3 times daily. They have not noted any symptomatic improvement with the latter medication change. The patient denies any symptoms of lightheadedness, dizziness, or unsteady gait after rising from a seated or supine position over the past few weeks. They deny any changes in their urinary output, palpitations, chest pain, shortness of breath. They do endorse a intermittently productive cough for approximately the past 10 to 14 days however denies any purulent sputum or hemoptysis. In the emergency department, the patient was discovered to have sustained a distal fibula fracture on the right in addition to a fracture of the great toe proximal phalanx. He was placed into a below-knee splint and admitted to the hospital due to his syncopal episode. On my evaluation this afternoon, the patient notes that his ankle feels more comfortable in the splint. He denies any additional areas of pain. The patient is generally a household ambulator without assistive device Allergies Allergy/AdvReac Type Severity Reaction Status Date / Time No Known Allergies Allergy Verified 04/06/25 10:13 Home Medications Medication Instructions Recorded Confirmed Type potassium 99 mg tablet 99 mg PO QDL 04/19/19 04/06/25 History psyllium husk 3.4 gram/5.4 gram 1 tbs PO BID #660 grams 08/13/19 04/06/25 Rx oral powder (Metamucil) acetaminophen 500 mg tablet 500 mg PO Q6H PRN Pain 12/22/23 04/06/25 History metoprolol succinate 25 mg 25 mg PO QAM #90 tabs 06/18/24 04/06/25 Rx tablet,extended release 24 hr amlodipine 2.5 mg tablet 2.5 mg PO BID #180 tabs 06/21/24 04/06/25 Rx lansoprazole 30 mg capsule,delayed 30 mg PO BID #180 caps 06/21/24 04/06/25 Rx release levothyroxine 175 mcg tablet 175 mcg PO QAM #90 tabs 12/07/24 04/06/25 Rx finasteride 5 mg tablet 5 mg PO DAILY #90 tabs 02/09/25 04/06/25 Rx peg 400-propylene glycol 0.4 %-0.3 1 drp ophthalmic (eye) DAILY PRN 03/15/25 04/06/25 History % eye drops (Systane Ultra) Dry Eye(S) polyethylene glycol 3350 17 17 g PO BID PRN constipation 03/15/25 04/06/25 History gram/dose oral powder (Miralax) simethicone 125 mg capsule 125 mg PO DAILY 03/15/25 04/06/25 History triamcinolone acetonide 0.1 % 1 applic topical BID PRN Other 03/15/25 04/06/25 History topical cream warfarin 2 mg tablet See Rx Instructions PO UD 03/15/25 04/06/25 History lidocaine 4 % topical patch 1 patch topical DAILY PRN Pain 03/30/25 04/06/25 History (Aspercreme (lidocaine)) primidone 50 mg tablet 75 mg PO TID 04/06/25 04/06/25 History simvastatin 20 mg tablet 0 mg PO QPM 04/06/25 04/06/25 History Patient History Medical History History of anesthesia reaction roughly 6 yrs ago--unable to void for 12 hours after salivary gland procedure--no other issues Osteoarthritis Hammond's esophagus History of radioactive iodine thyroid ablation History of Graves' disease had radioactive iodine ablation Hearing deficit Hematochezia Surgical History Hx of cataract extraction rt. History of surgery salivary gland procedure History of prostate surgery TUNA procedure History of transurethral resection of prostate History of esophagogastroduodenoscopy (EGD) History of hernia surgery History of appendectomy Status post correction of deviated nasal septum History of tooth extraction History of wisdom tooth extraction History of tonsillectomy Hx of colonoscopy (08/15/19) done for LGIB, Dr Jimenez. sigmoid tics, sigmoid ulcer and internal hemorrhoids but no bleeding Family History Brother Tremor Colorectal cancer Other No family history of adverse response to anesthesia Denies family history of Ovarian cancer Prostate cancer Myocardial infarction Breast cancer Social History Smoking Status: Former smoker Tobacco Type: Declines Age Started Using Tobacco: 21; Age Quit Using Tobacco: 51; packs per day: 1; Second Hand Exposure: No; Do You Dip or Chew Tobacco: No; Hx Alcohol Use: No Hx Substance Use: No Preferred Language: [place] Communication Ability: Effective Visual Impairment: No Limitations Hearing Ability: Use of Hearing Aid Service Operations Manager Required: No Beliefs That Will Affect Care: None marital status: Current Living Situation: Spouse current occupational status: retired 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 He has bruising noted about his great toe without any open wounds. He demonstrates intact EHL and FHL function. He has intact sensation DPN SPN, tibial nerve distributions. Results & Data Vital Signs (Past 12 Hours) Vital Signs Temp Pulse Pulse Pulse Resp BP BP 04/06/25 15:25 57 L 04/06/25 15:00 04/06/25 15:00 36.5 C 61 16 140/70 04/06/25 15:00 04/06/25 14:00 84 19 04/06/25 13:03 57 L 04/06/25 13:00 58 L 20 04/06/25 12:30 114/73 04/06/25 12:12 58 L 18 113/68 04/06/25 12:00 58 L 18 04/06/25 11:30 58 L 15 105/68 04/06/25 11:00 58 L 13 115/72 04/06/25 11:00 60 20 04/06/25 10:00 54 L 17 04/06/25 10:00 114/70 04/06/25 09:30 59 L 19 04/06/25 09:11 59 L 04/06/25 09:00 130/69 04/06/25 09:00 74 16 04/06/25 08:30 105/68 04/06/25 08:30 60 22 04/06/25 08:27 36.7 C 101 H 20 105/68 04/06/25 08:25 136/74 BP Pulse Ox Pulse Ox O2 Del Method O2 Del Method 04/06/25 15:25 04/06/25 15:00 Room Air 04/06/25 15:00 95 Room Air 04/06/25 15:00 95 Room Air 04/06/25 14:00 147/76 H 94 Room Air 04/06/25 13:03 04/06/25 13:00 126/73 93 Room Air 04/06/25 12:30 04/06/25 12:12 93 Room Air 04/06/25 12:00 113/68 96 Room Air 04/06/25 11:30 94 Room Air 04/06/25 11:00 96 Room Air 04/06/25 11:00 115/72 96 Room Air 04/06/25 10:00 94 Room Air 04/06/25 10:00 04/06/25 09:30 96 04/06/25 09:11 04/06/25 09:00 04/06/25 09:00 98 04/06/25 08:30 04/06/25 08:30 96 04/06/25 08:27 94 Room Air 04/06/25 08:25 Diagnostic Findings X-rays of the right foot and ankle obtained today were personally reviewed and interpreted. These demonstrate a Hale B distal fibula fracture with a posterior butterfly fragment of the fibula as well as a minimally displaced fracture of the medial base of the proximal phalanx of the right great toe. (1) Fibula fracture Encounter type: initial encounter Fibula location: distal Fracture morphology: other fracture Fracture type: closed Laterality: right Qualified Code(s): S82.831A - Other fracture of upper and lower end of right fibula, initial encounter for closed fracture (2) Fracture, phalanx, foot Encounter type: initial encounter Fracture alignment: displaced Fracture type: closed Laterality: right Phalanx: proximal Toe: great toe Qualified Code(s): S92.411A - Displaced fracture of proximal phalanx of right great toe, initial encounter for closed fracture (3) Syncope Syncope type: unspecified Qualified Code(s): R55 - Syncope and collapse (10) Atrial fibrillation Atrial fibrillation type: paroxysmal Qualified Code(s): I48.0 - Paroxysmal atrial fibrillation
[2025-04-06] MEDS ORDERED: MICONAZOLE NITRATE POWDER 85 GM EXT PRN (22:11)
[2025-04-06] MEDS: LIDOCAINE 5% 1 PATCH TD SCH (22:15)
[2025-04-07] MEDS: LEVOTHYROXINE SODIUM 175 MCG TABLET PO SCH (06:15)
[2025-04-07 06:43] LABS: Hematocrit (blood only) 37.2 % (42.0-52.0); Hemoglobin 12.9 g/dL (14.0-18.0); Mean Corpuscular Hemoglobin 31.8 pg (25.0-34.0); Mean Corpuscular Volume 91.6 fL (80.0-100.0); Platelet Count 168 K/uL (130-400); RDW Standard Deviation 43.1 fL (36.4-46.3); Red Blood Count 4.06 M/uL (4.70-6.10); White Blood Count 6.34 K/ul (4.8-10.8)
--- NOTE | 2025-04-07 07:24 | Hospitalist Progress Note ---
Date of Service April 07, 2025 Assessment & Plan (1) Syncope: (2) Fibula fracture: (3) Fracture, phalanx, foot: (4) Atrial fibrillation: Plan In summary this is an 89-year-old male who presents after an episode of unwitnessed syncope with subsequent repeated episode and a short time interval with consequential right first proximal phalangeal and right distal fibular fractures #Syncope Unwitnessed episode; no notable prodromal symptoms nor witnessed incontinence of stool or urine; pertinent comorbidities include paroxysmal atrial fibrillation, hypertension; initial EKG was unremarkable; given the patient's recurrent episodes in a short time interval with regained consciousness and lack of findings that would be more consistent with a seizure type pathology, I am concerned that this is a primarily cardiovascular event with either rapid or slow ventricular response in the setting of atrial fibrillation - Continuous cardiac monitor technician for first 24 hours then reassess - Follow daily renal function panel, magnesium; goal potassium greater than 4, magnesium greater than 2 - Previous TTE in 2019; updated study obtained 04/06 without significant interval change - If without evidence of significant cardiac arrhythmia during hospitalization, would strongly consider ambulatory cardiac monitoring given the patient's presentation - Pending orthostatic vital signs - Cardiology consulted #Right distal fibular and first proximal phalangeal fractures Orthopedic surgery was consulted by the patient's emergency department provider regarding their fibula and first right phalangeal fractures; advised to place the patient in Ortho-Glass splint, to remain nonweightbearing; pain regimen as detailed below Continue acetaminophen 1000 mg p.o. every 8 hours Continue hydromorphone 2 mg p.o. 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 Gil is an 89-year-old male whose active medical conditions include pa roxysmal atrial fibrillation, hyperlipidemia, hypertension, acquired hypothyroidism among other chronic medical conditions who presented to the [facility] on 04/06 after an unwitnessed syncopal event at his personal care facility resulting in fall.The patient describes that they were up and about as usual in the morning, after shaving under their shower and while showering at some point experienced a syncopal event that resulted in their collapse to the floor. They do not recall any prodromal symptoms, nor was this episode witnessed. The patient's spouse was present at the time, heard the patient's fall in the shower and subsequently evaluated them and called nursing assistance to their room. The patient regained rapid consciousness, was assisted to a shower chair but then again experienced a syncopal event and was aroused shortly thereafter. Upon arrival by EMS the patient was found to be profoundly hypotensive but regained their consciousness rather rapidly and their vital signs improved thereafter. There was no noted incontinence of stool nor urine. The patient was complaining of right lower extremity pain around the ankle after their fall. No acute overnight events; patient feels well this morning, minimal pain involving the left leg unless they are moving Review of Systems Review of Systems: Review of constitutional, cardiovascular, pulmonary, neurologic, musculoskeletal systems was unremarkable except for pertinent positive and negative findings discussed above Physical Exam Physical Exam: General: Elderly male in no acute distress Vital Signs: Reviewed; telemetry without concerning findings HEENT: Moist mucous membranes Pulmonary: Symmetric chest wall excursion without restriction; clear to auscultation bilaterally Cardiovascular: Bradycardic rate and regular rhythm without murmurs, rubs, or gallops; S1 and S2 normal; right radial pulse 2+ Gastrointestinal: Soft, nontender Musculoskeletal: Right leg in splint; exposed toes have brisk capillary refill with intact though limited range of motion and sensation Neurologic: Cranial nerves II through XII grossly intact Skin: Diffuse seborrheic keratoses of the posterior thorax Results & Data Results & Data Vital Signs (Past 12 Hours) Vital Signs Temp Pulse Pulse Resp BP Pulse Ox O2 Del Method 04/07/25 03:14 36.8 C 71 18 108/70 92 Room Air 04/07/25 00:15 62 04/06/25 22:42 37.9 C H 66 16 105/69 94 Room Air 04/06/25 19:32 37.4 C 80 18 95/61 L 93 Room Air PG Care Time/CCT Total # of Minutes Spent Total Time Spent with Patient: Total time spent is greater than 50% in coordination of care (as documented) at patient's floor/unit and/or counseling patient: Coding Level of Care Code 28304 SUB INP/OBS CARE MIN Diagnoses Syncope, unspecified syncope type R55 Syncope type: unspecified Other closed fracture of distal end of right fibula, initial encounter S82.831A Encounter type: initial encounter Fibula location: distal Fracture morphology: other fracture Fracture type: closed Laterality: right Closed displaced fracture of proximal phalanx of right great toe, initial encounter S92.411A Encounter type: initial encounter Fracture alignment: displaced Fracture type: closed Laterality: right Phalanx: proximal Toe: great toe Paroxysmal atrial fibrillation I48.0 Atrial fibrillation type: paroxysmal (1) Syncope Syncope type: unspecified Qualified Code(s): R55 - Syncope and collapse (2) Fibula fracture Encounter type: initial encounter Fibula location: distal Fracture morphology: other fracture Fracture type: closed Laterality: right Qualified Code(s): S82.831A - Other fracture of upper and lower end of right fibula, initial encounter for closed fracture (3) Fracture, phalanx, foot Encounter type: initial encounter Fracture alignment: displaced Fracture type: closed Laterality: right Phalanx: proximal Toe: great toe Qualified Code(s): S92.411A - Displaced fracture of proximal phalanx of right great toe, initial encounter for closed fracture (4) Atrial fibrillation Atrial fibrillation type: paroxysmal Qualified Code(s): I48.0 - Paroxysmal atrial fibrillation
[2025-04-07 07:47] LABS: Albumin Level 3.6 gm/dl (3.4-5.0); Anion Gap 6.0 (3-11); Blood Urea Nitrogen 16.0 mg/dl (6-23); Calcium 8.3 mg/dl (8.6-10.3); Carbon Dioxide 28.0 mmol/L (21-32); Chloride 98.0 mmol/L (98-107); Creatinine Clr Calc Pharmacy 47.4 ml/min; Glucose 102.0 mg/dl (70-99(Fasting)); Magnesium 1.9 mg/dl (1.7-2.4); Potassium 4.5 mmol/L (3.5-5.1); Sodium 132.0 mmol/L (136-145)
[2025-04-07] MEDS: POLYETHYLENE (MIRALAX) 17 GM PACK PO SCH (08:25)
[2025-04-07] MEDS: REMOVE LIDODERM PATCH SCH (08:25)
[2025-04-07] MEDS: METOPROLOL SUCC 25MG EXT REL TAB PO SCH (08:25)
[2025-04-07] MEDS: FINASTERIDE 5 MG TAB PO SCH (08:25)
--- NOTE | 2025-04-07 11:36 | Cardiology Consultation ---
Date of Consultation April 07, 2025 Assessment & Plan (1) Syncope: -The patient does demonstrate relative hypotension, and therefore, I feel his syncope in the shower was a vasodepressor event related to water temperature and his low blood pressure. -Recurrent event sounds vasovagal in origin as he experienced diaphoresis, nausea, and vomiting. -No prior history of syncope. -No further cardiac evaluation necessary. (2) Hypertension: -Relative hypotension demonstrated. (3) Atrial fibrillation: -Currently on a rate control and long-term anticoagulation strategy. -Would hold Coumadin for possible orthopedic surgery. (4) Preop cardiovascular exam: -Acceptable cardiac risk for orthopedic surgery without further testing. History of Present Illness Attending Physician: Jose Daniel Velez, History of Present Illness Mr. Gil is an 89-year-old male admitted yesterday after a mechanical fall in which he sustained a right distal fibular fracture along with a right great toe fracture. He may require a surgical intervention, therefore, this consultation was ordered to assess his cardiac risk. The patient was in his usual state of health until the day of presentation. He was taking a shower when he had the abrupt onset of syncope and found himself on the floor in the shower. He has significant right foot pain. He was moved out to a chair in the bathroom and had a recurrent episode of syncope witnessed by the . The second episode was accompanied by nausea, vomiting, and diaphoresis. He was brought to the emergency room by EMS. His blood pressure remained relatively hypotensive. Of note, when at home, the patient's systolic blood pressure usually ranges from 100 to 110 mmHg. He admits that the shower that he took as described above was a "hot shower." Prior to his mechanical fall, the patient demonstrated excellent functional status. He was able to carry on activity of daily life without exertional chest pain or limiting dyspnea. He was able to climb 1 flight of stairs without cardiac symptoms. The patient has never known of a cardiac event. He has never had a cardiac catheterization. He does carry a history of paroxysmal atrial fibrillation and is maintained on rate control and long-term anticoagulation without difficulty. Currently, patient is resting comfortably in bed and without complaints. Past medical and surgical history 1. Hypertension 2. Hypercholesterolemia 3. Paroxysmal atrial fibrillation 4. RBBB 5. Hypothyroidism 6. BPH 7. DJD 8. Hammond's esophagus 9. History of Graves' disease 10. Intraocular lens implants 11. Tonsillectomy 12. Appendectomy 13. Inguinal hernia repair 14. TURP Social history and lives with his at the [facility] No tobacco or alcohol Family history Noncontributory Review of systems A 10 point review of system was undertaken and negative except that described above. Allergies Allergy/AdvReac Type Severity Reaction Status Date / Time No Known Allergies Allergy Verified 04/06/25 10:13 Home Medications Medication Instructions Recorded Confirmed Type potassium 99 mg tablet 99 mg PO QDL 04/19/19 04/06/25 History psyllium husk 3.4 gram/5.4 gram 1 tbs PO BID #660 grams 08/13/19 04/06/25 Rx oral powder (Metamucil) acetaminophen 500 mg tablet 500 mg PO Q6H PRN Pain 12/22/23 04/06/25 History metoprolol succinate 25 mg 25 mg PO QAM #90 tabs 06/18/24 04/06/25 Rx tablet,extended release 24 hr amlodipine 2.5 mg tablet 2.5 mg PO BID #180 tabs 06/21/24 04/06/25 Rx lansoprazole 30 mg capsule,delayed 30 mg PO BID #180 caps 06/21/24 04/06/25 Rx release levothyroxine 175 mcg tablet 175 mcg PO QAM #90 tabs 12/07/24 04/06/25 Rx finasteride 5 mg tablet 5 mg PO DAILY #90 tabs 02/09/25 04/06/25 Rx peg 400-propylene glycol 0.4 %-0.3 1 drp ophthalmic (eye) DAILY PRN 03/15/25 04/06/25 History % eye drops (Systane Ultra) Dry Eye(S) polyethylene glycol 3350 17 17 g PO BID PRN constipation 03/15/25 04/06/25 History gram/dose oral powder (Miralax) simethicone 125 mg capsule 125 mg PO DAILY 03/15/25 04/06/25 History triamcinolone acetonide 0.1 % 1 applic topical BID PRN Other 03/15/25 04/06/25 History topical cream warfarin 2 mg tablet See Rx Instructions PO UD 03/15/25 04/06/25 History lidocaine 4 % topical patch 1 patch topical DAILY PRN Pain 03/30/25 04/06/25 History (Aspercreme (lidocaine)) primidone 50 mg tablet 75 mg PO TID 04/06/25 04/06/25 History simvastatin 20 mg tablet 0 mg PO QPM 04/06/25 04/06/25 History Patient History Medical History History of anesthesia reaction roughly 6 yrs ago--unable to void for 12 hours after salivary gland procedure--no other issues Osteoarthritis Hammond's esophagus History of radioactive iodine thyroid ablation History of Graves' disease had radioactive iodine ablation Hearing deficit Hematochezia Surgical History Hx of cataract extraction rt. History of surgery salivary gland procedure History of prostate surgery TUNA procedure History of transurethral resection of prostate History of esophagogastroduodenoscopy (EGD) History of hernia surgery History of appendectomy Status post correction of deviated nasal septum History of tooth extraction History of wisdom tooth extraction History of tonsillectomy Hx of colonoscopy (08/15/19) done for LGIB, Dr Jimenez. sigmoid tics, sigmoid ulcer and internal hemorrhoids but no bleeding Family History Brother Tremor Colorectal cancer Other No family history of adverse response to anesthesia Denies family history of Ovarian cancer Prostate cancer Myocardial infarction Breast cancer Social History Smoking Status: Former smoker Tobacco Type: Declines Age Started Using Tobacco: 21; Age Quit Using Tobacco: 51; packs per day: 1; Second Hand Exposure: No; Do You Dip or Chew Tobacco: No; Hx Alcohol Use: No Hx Substance Use: No Preferred Language: Citizen Of [place] Communication Ability: Effective Visual Impairment: No Limitations Hearing Ability: Use of Hearing Aid Deputy Director Required: No Beliefs That Will Affect Care: None marital status: Current Living Situation: Spouse current occupational status: retired 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 HEENT exam is negative. Neck reveals normal carotid upstrokes without bruits. Jugular venous pressure is flat at 90. There is no thyromegaly. Cardiovascular exam reveals a regular rhythm with distant heart sounds. No obvious murmurs. Lungs are clear without rales, rhonchi, or wheezes. Abdomen is soft without bruits. Extremities reveal intact radial artery pulses bilaterally. Right lower extremity in a cast. Results & Data Vital Signs (Past 12 Hours) Vital Signs Temp Pulse Pulse Resp BP Pulse Ox O2 Del Method 04/07/25 08:25 Room Air 04/07/25 08:25 71 113/72 04/07/25 07:44 37.4 C 67 16 99/67 L 95 Room Air 04/07/25 06:45 61 04/07/25 03:14 36.8 C 71 18 108/70 92 Room Air 04/07/25 00:15 62 Laboratory Results CBC notes hemoglobin of 12.9, hematocrit 37.9, white count 6.4, and a platelet count 168,000. Electrolytes noted sodium 132, potassium 4.5, chloride 98, bicarb 26, BUN 26, creatinine of 1.13. High-sensitivity troponin normal at 7 Diagnostic Findings Echocardiogram notes normal left ventricular systolic function with ejection fraction of 65 to 70%. There is mild LVH along with mild tricuspid regurgitation. Compared to the study performed in March 2020, no significant change. Results personally reviewed and discussed in detail. EKG done sinus rhythm with a right bundle branch block. site inspector is benign. No pauses or inappropriate bradycardias. Chest x-ray shows no acute disease. PG Care Time/CCT Total # of Minutes Spent Total Time Spent with Patient: Total time spent is greater than 50% in coordination of care (as documented) at patient's floor/unit and/or counseling patient: Coding Level of Care Code 93150 INT INP/OBS CARE 3/75MIN Diagnoses Syncope, unspecified syncope type R55 Syncope type: unspecified Hypertension I10 Paroxysmal atrial fibrillation I48.0 Atrial fibrillation type: paroxysmal Preop cardiovascular exam Z01.810 (1) Syncope Syncope type: unspecified Qualified Code(s): R55 - Syncope and collapse (3) Atrial fibrillation Atrial fibrillation type: paroxysmal Qualified Code(s): I48.0 - Paroxysmal atrial fibrillation
--- NOTE | 2025-04-07 13:40 | Orthopedic Progress Note ---
Date of Service April 07, 2025 Assessment & Plan (1) Fibula fracture: (2) Fracture, phalanx, foot: (3) Syncope: (4) Impaired fasting glucose: (5) BPH (benign prostatic hyperplasia): (6) Hypertension: (7) COPD (chronic obstructive pulmonary disease): (8) detention (current) use of anticoagulants: (9) Hypothyroidism: (10) Atrial fibrillation: Plan 89-year-old gentleman presents to the hospital after a syncopal episode resulting in fall. During the fall he sustained a fracture of the right distal fibula and right great toe proximal phalanx. Patient seen and evaluated by cardiology team and deemed stable from their standpoint. We will keep this in consideration as we move forward with the patient's care, however orthopedically, no acute intervention planned during this hospitalization. I will plan to see the patient in the office early next week for evaluation for an external rotation stress examination of his ankle to determine if surgical fixation is warranted. I do still believe that the patient is a high risk surgical candidate, however the patient and I will discuss his surgical risks further following results of the external rotation stress examination. Patient should be nonweightbearing on his injured lower extremity. He is okay for DVT prophylaxis from my standpoint. I will see him in the office early next week for evaluation. Admission and Anticipated Discharge Date Admission Date: April 06, 2025 Subjective 89-year-old gentleman resting comfortably in bed this morning. Patient notes no increase in pain in his foot or his ankle. He has been seen by cardiology team. Review of Systems Review of Systems: All systems reviewed & are unremarkable except as noted in HPI & below Physical Exam Physical Exam: On physical examination of the patient's right foot and ankle he is currently resting in a well-padded splint. He has bruising noted about his great toe without any open wounds. He demonstrates intact EHL and FHL function. He has intact sensation DPN SPN, tibial nerve distributions. Results & Data Vital Signs (Past 12 Hours) Vital Signs Temp Pulse Pulse Resp BP Pulse Ox O2 Del Method 04/07/25 11:36 36.7 C 67 18 108/71 95 Room Air 04/07/25 08:25 Room Air 04/07/25 08:25 71 113/72 04/07/25 07:44 37.4 C 67 16 99/67 L 95 Room Air 04/07/25 06:45 61 04/07/25 03:14 36.8 C 71 18 108/70 92 Room Air (1) Fibula fracture Encounter type: initial encounter Fibula location: distal Fracture morphology: other fracture Fracture type: closed Laterality: right Qualified Code(s): S82.831A - Other fracture of upper and lower end of right fibula, initial encounter for closed fracture (2) Fracture, phalanx, foot Encounter type: initial encounter Fracture alignment: displaced Fracture type: closed Laterality: right Phalanx: proximal Toe: great toe Qualified Code(s): S92.411A - Displaced fracture of proximal phalanx of right great toe, initial encounter for closed fracture (3) Syncope Syncope type: unspecified Qualified Code(s): R55 - Syncope and collapse (10) Atrial fibrillation Atrial fibrillation type: paroxysmal Qualified Code(s): I48.0 - Paroxysmal atrial fibrillation
[2025-04-07] MEDS: LACTATED RINGER'S 1,000 ML IV ONE (23:51)
[2025-04-07] MEDS: DIGOXIN 125 MCG in SYRINGE 9.5 ML IV STA (23:51)
[2025-04-08] MEDS ORDERED: MELATONIN 3 MG TAB PO PRN (00:48)
[2025-04-08] MEDS: MAGNESIUM SULFATE / D5W 1 GM/100 ML BAG IV SCH (01:26)
[2025-04-08] MEDS: LACTATED RINGER'S 1,000 ML IV ONE (01:35)
--- NOTE | 2025-04-08 05:41 | Communication Note ---
Date of Service: April 08, 2025 S/O: Patient noted to have sustained AFib w/ RVR (rates in the 150s) overnight and blood pressures w/ SBP in the 80s at the same time. Without any symptoms such as palpitations, dyspnea, or CP. PE did not indicate any crackles of the lungs, no pedal edema, but also noted to have cap refill < 2 s. Most recent Echo indicated an EF of 60-65%, without noted systolic or diastolic dysfunction. A/P: Due to patient being on Med-Tele floor, and the low blood pressures, opted for low dose of digoxin, 125 mcg ( noting CrCl ~ 47), followed by 1000 mL x 2 dex naun of LR, and replenishment of MgSO4, 2 g, IV. Patient's rate was gradually lowered over next 1-2 hrs into the 110's and was in the 90s as of this morning.
--- NOTE | 2025-04-08 07:26 | Hospitalist Progress Note ---
Date of Service April 08, 2025 Assessment & Plan (1) Syncope: (2) Fibula fracture: (3) Fracture, phalanx, foot: (4) Atrial fibrillation: Plan In summary this is an 89-year-old male who presents after an episode of unwitnessed syncope with subsequent repeated episode and a short time interval with consequential right first proximal phalangeal and right distal fibular fractures #Syncope Unwitnessed episode; no notable prodromal symptoms nor witnessed incontinence of stool or urine; pertinent comorbidities include paroxysmal atrial fibrillation, hypertension; initial EKG was unremarkable; given the patient's recurrent episodes in a short time interval with regained consciousness and lack of findings that would be more consistent with a seizure type pathology, I am concerned that this is a primarily cardiovascular event with either rapid or slow ventricular response in the setting of atrial fibrillation - 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 then reassess - Follow daily renal function panel, magnesium; goal potassium greater than 4, magnesium greater than 2 - Previous TTE in 2019; updated study obtained 04/06 without significant interval change - If without evidence of significant cardiac arrhythmia during hospitalization, would strongly consider ambulatory cardiac monitoring given the patient's presentation - Cardiology consulted; suspect vasovagal episodes rather than cardiogenic #Right distal fibular and first proximal phalangeal fractures Orthopedic surgery was consulted by the patient's emergency department provider regarding their fibula and first right phalangeal fractures; advised to place the patient in Ortho-Glass splint, to remain nonweightbearing; pain regimen as detailed below Continue acetaminophen 1000 mg p.o. every 8 hours Continue hydromorphone 2 mg p.o. every 4 hours as needed for pain Continue hydromorphone 0.25 mg IV every 3 hours as needed for severe breakthrough pain Consult PT/OT Consult orthopedic surgery; no plan for surgical intervention during hospital ization #Paroxysmal atrial fibrillation // correction VKA Long-term anticoagulation with warfarin with goal INR of 2-3; INR 2.2 on 04/06; entered into rapid ventricular rhythm overnight 04/07- and was administered digoxin one-time; anticipate increase of the patient's metoprolol succinate, pending recommendation from Cardiology Continue home warfarin regimen The remainder the patient's chronic medical conditions are stable and do not require adjustment to their outpatient regimen at this time Admission and Anticipated Discharge Date Admission Date: April 06, 2025 Subjective Mr. Gil is an 89-year-old male whose active medical conditions include paroxysmal atrial fibrillation, hyperlipidemia, hypertension, acquired hypothyroidism among other chronic medical conditions who presented to the [facility] on 04/06 after an unwitnessed syncopal event at his personal care facility resulting in fall.The patient describes that they were up and about as usual in the morning, after shaving under their shower and while showering at some point experienced a syncopal event that resulted in their collapse to the floor. They do not recall any prodromal symptoms, nor was this episode witnessed. The patient's spouse was present at the time, heard the patient's fall in the shower and subsequently evaluated them and called nursing assistance to their room. The patient regained rapid consciousness, was assisted to a shower chair but then again experienced a syncopal event and was aroused shortly thereafter. Upon arrival by EMS the patient was found to be profoundly hypotensive but regained their consciousness rather rapidly and their vital signs improved thereafter. There was no noted incontinence of stool nor urine. The patient was complaining of right lower extremity pain around the ankle after their fall. Overnight patient entered into atrial fibrillation with rapid ventricular response with associated hypotension, not symptomatic; intervened with one time dose of digoxin with improvement of heart rate and rhythm Review of Systems Review of Systems: Review of constitutional, cardiovascular, pulmonary, neurologic, musculoskeletal systems was unremarkable except for pertinent positive and negative findings discussed above Physical Exam Physical Exam: General: Elderly male in no acute distress Vital Signs: Reviewed; telemetry without concerning findings HEENT: Moist mucous membranes Pulmonary: Symmetric chest wall excursion without restriction; clear to auscultation bilaterally Cardiovascular: Bradycardic rate and regular rhythm without murmurs, rubs, or gallops; S1 and S2 normal; right radial pulse 2+ Gastrointestinal: Soft, nontender Musculoskeletal: Right leg in splint; exposed toes have brisk capillary refill with intact though limited range of motion and sensation Neurologic: Cranial nerves II through XII grossly intact Skin: Diffuse seborrheic keratoses of the posterior thorax Results & Data Results & Data Vital Signs (Past 12 Hours) Vital Signs Temp Pulse Pulse Resp BP Pulse Ox O2 Del Method 04/08/25 07:13 105 H 04/08/25 05:36 77 18 97/66 L 94 Room Air 04/08/25 01:15 87 16 98/65 L 95 Room Air 04/07/25 23:51 90 04/07/25 22:54 90 16 89/58 L 94 Room Air 04/07/25 22:50 36.3 C L 94 H 17 92/60 L 92 Room Air 04/07/25 21:56 86 04/07/25 19:55 Room Air 04/07/25 19:44 37.3 C 96 H 17 90/57 L 93 Room Air PG Care Time/CCT Total # of Minutes Spent Total Time Spent with Patient: Total time spent is greater than 50% in coordination of care (as documented) at patient's floor/unit and/or counseling patient: Coding Level of Care Code 66757 SUB INP/OBS CARE 2/35MIN Diagnoses Syncope, unspecified syncope type R55 Syncope type: unspecified Other closed fracture of distal end of right fibula, initial encounter S82.831A Encounter type: initial encounter Fibula location: distal Fracture morphology: other fracture Fracture type: closed Laterality: right Closed displaced fracture of proximal phalanx of right great toe, initial encounter S92.411A Encounter type: initial encounter Fracture alignment: displaced Fracture type: closed Laterality: right Phalanx: proximal Toe: great toe Paroxysmal atrial fibrillation I48.0 Atrial fibrillation type: paroxysmal (1) Syncope Syncope type: unspecified Qualified Code(s): R55 - Syncope and collapse (2) Fibula fracture Encounter type: initial encounter Fibula location: distal Fracture morphology: other fracture Fracture type: closed Laterality: right Qualified Code(s): S82.831A - Other fracture of upper and lower end of right fibula, initial encounter for closed fracture (3) Fracture, phalanx, foot Encounter type: initial encounter Fracture alignment: displaced Fracture type: closed Laterality: right Phalanx: proximal Toe: great toe Qualified Code(s): S92.411A - Displaced fracture of proximal phalanx of right great toe, initial encounter for closed fracture (4) Atrial fibrillation Atrial fibrillation type: paroxysmal Qualified Code(s): I48.0 - Paroxysmal atrial fibrillation
[2025-04-08 07:40] LABS: Anion Gap 5.0 (3-11); Blood Urea Nitrogen 13.0 mg/dl (6-23); Carbon Dioxide 29.0 mmol/L (21-32); Chloride 102.0 mmol/L (98-107); Creatinine Clr Calc Pharmacy 52.0 ml/min; Potassium 4.2 mmol/L (3.5-5.1); Sodium 136.0 mmol/L (136-145)
[2025-04-08 07:56] VITALS: RESP 16
[2025-04-08 08:26] LABS: Calcium 8.1 mg/dl (8.6-10.3)
[2025-04-08 09:27] LABS: INR 2.2 (0.9-1.1); Prothrombin Time 22.6 Seconds (9.0-12.0)
--- NOTE | 2025-04-08 09:43 | Electrocardiogram Report ---
Test Reason : Blood Pressure : */* mmHG Vent. Rate : 111 BPM Atrial Rate : * BPM P-R Int : * ms QRS Dur : 156 ms QT Int : 336 ms P-R-T Axes : * 35 -10 degrees QTcB Int : 456 ms Atrial fibrillation with rapid ventricular response Right bundle branch block T wave abnormality, consider lateral ischemia Abnormal ECG When compared with ECG of 06-Apr-2025 08:24, Atrial fibrillation has replaced Sinus rhythm Vent. rate has increased by 47 bpm T wave inversion now evident in Inferior leads T wave inversion now evident in Lateral leads Confirmed by Evans Barclay ([id number]) on 04/08/2025 9:42:45 AM Referred By: REFERRED SELF Confirmed By: Evans Barclay
--- NOTE | 2025-04-08 09:50 | Electrocardiogram Report ---
Test Reason : Blood Pressure : */* mmHG Vent. Rate : 119 BPM Atrial Rate : * BPM P-R Int : * ms QRS Dur : 166 ms QT Int : 328 ms P-R-T Axes : * 52 -6 degrees QTcB Int : 461 ms Atrial fibrillation with rapid ventricular response Right bundle branch block Abnormal ECG When compared with ECG of 07-Apr-2025 16:53, (unconfirmed) No significant change was found Confirmed by Evans Barclay ([id number]) on 04/08/2025 9:49:40 AM Referred By: REFERRED SELF Confirmed By: Evans Barclay
--- NOTE | 2025-04-08 10:45 | Communication Note ---
Date of Service: April 08, 2025 Code purple called due to the patient developing shortness of breath, diaphoresis, nausea and subsequent nonbilious and nonbloody emesis after transitioning to the [facility] At initial evaluation the patient was hypotensive with MAP ~60 mmHg, tachycardic with rate approximately 180 bmp assessed with manual pulse, hypoxic with SpO2 measure of 75% on RA. The patient was alert, diaphoretic, feeling "unwell"; tachycardic rate with irregular rhythm, left radial pulse 2+ with delayed capillary refill; lungs clear to auscultation bilaterally; patient was transitioned to the bed wtih assistance of nursing staff. A/P: atrial fibrillation with RVR; EKG performed at bedside confirmed atrial fibrillation with RVR, without acute ischemic changes; spontaneous return to controlled rate while remaining in atrial flutter; saturating well with supplemental oxygen; feels much improved with controlled heart rate. Discussed with [facility] Orchestra Leader director television who is agreeable to transitioning from Metoprolol succinate to Metoprolol tartrate 25 mg p.o. twice daily for rate control. Continue to monitor vital signs closely.
[2025-04-08 15:13] VITALS: BP 102/65; PULSE 54; TEMP 97.5; O2SAT 92
--- NOTE | 2025-04-08 16:38 | Discharge Summary ---
Discharge Summary Date of Service April 08, 2025 Principal Dx & Hospital Course #1 = Principal Diagnosis (1) Syncope: (2) Fibula fracture: (3) Fracture, phalanx, foot: (4) Atrial fibrillation: Plan In summary this is an 89-year-old male who presents after an episode of unwitnessed syncope with subsequent repeated episode and a short time interval with consequential right first proximal phalangeal and right distal fibular f ractures #Syncope Unwitnessed episode; no notable prodromal symptoms nor witnessed incontinence of stool or urine; pertinent comorbidities include paroxysmal atrial fibrillation, hypertension; initial EKG was unremarkable; given the patient's recurrent episodes in a short time interval with regained consciousness and lack of findings that would be more consistent with a seizure type pathology, I am concerned that this is a primarily cardiovascular event with either rapid or slow ventricular response in the setting of atrial fibrillation - Follow daily renal function panel, magnesium; goal potassium greater than 4, magnesium greater than 2 - Previous TTE in 2019; updated study obtained 04/06 without significant interval change - Cardiology consulted; suspect vasovagal episodes rather than cardiogenic #Right distal fibular and first proximal phalangeal fractures Orthopedic surgery was consulted by the patient's emergency department provider regarding their fibula and first right phalangeal fractures; advised to place the patient in Ortho-Glass splint, to remain nonweightbearing; pain regimen as detailed below Continue acetaminophen 1000 mg p.o. every 8 hours Consult orthopedic surgery; no plan for surgical intervention during hospitalization, close follow up in the outpatient setting #Paroxysmal atrial fibrillation // [facility] Long-term anticoagulation with warfarin with goal INR of 2-3; INR 2.2 on 04/06; entered into rapid ventricular rhythm overnight 04/07- and was administered digoxin one-time, occurred again in the late morning without loss of consciousness; after discussion with cardiology, adjustments to their medication regimen were made as detailed below - Stop Metoprolol succinate - Start Metoprolol tartrate 25 mg p.o. twice daily Continue home warfarin regimen The remainder the patient's chronic medical conditions are stable and do not require adjustment to their outpatient regimen at this time Notes For Next Care Provider Medication Changes From Visit - Stop Metoprolol succinate - Start Metoprolol tartrate 25 mg p.o. twice daily Admission HPI Per Admitting Provider Mr. Gil is an 89-year-old male whose active medical conditions include paroxysmal atrial fibrillation, hyperlipidemia, hypertension, acquired hypothyroidism among other chronic medical conditions who presented to the [facility] [address] on 04/06 after an unwitnessed syncopal event at his personal care facility resulting in fall.The patient describes that they were up and about as usual in the morning, after shaving under their shower and while showering at some point experienced a syncopal event that resulted in their collapse to the floor. They do not recall any prodromal symptoms, nor was this episode witnessed. The patient's spouse was present at the time, heard the patient's fall in the shower and subsequently evaluated them and called nursing assistance to their room. The patient regained rapid consciousness, was assisted to a shower chair but then again experienced a syncopal event and was aroused shortly thereafter. Upon arrival by EMS the patient was found to be profoundly hypotensive but regained their consciousness rather rapidly and their vital signs improved thereafter. There was no noted incontinence of stool nor urine. The patient was complaining of right lower extremity pain around the ankle after their fall. The patient endorses recent medication changes including titration of their warfarin, increase of their primidone from 50 to 75 mg p.o. 3 times daily. They have not noted any symptomatic improvement with the latter medication change. The patient denies any symptoms of lightheadedness, dizziness, or unsteady gait after rising from a seated or supine position over the past few weeks. They deny any changes in their urinary output, palpitations, chest pain, shortness of breath. They do endorse a intermittently productive cough for approximately the past 10 to 14 days however denies any purulent sputum or hemoptysis. Discharge Exam General: Elderly male in no acute distress Vital Signs: Reviewed; telemetry without concerning findings HEENT: Moist mucous membranes Pulmonary: Symmetric chest wall excursion without restriction; clear to auscultation bilaterally Cardiovascular: Bradycardic rate and regular rhythm without murmurs, rubs, or gallops; S1 and S2 normal; right radial pulse 2+ Gastrointestinal: Soft, nontender Musculoskeletal: Right leg in splint; exposed toes have brisk capillary refill with intact though limited range of motion and sensation Neurologic: Cranial nerves II through XII grossly intact Skin: Diffuse seborrheic keratoses of the posterior thorax Discharge Plan Discharge Items Patient Disposition: Transfer Inpatient Rehab Fac Reason For Visit: SYNCOPE Discharge Diagnosis: Vasovagal syncope // Atrial fibrillation with RVR Condition on Discharge: Good Activity: Per Instructions section Non-emergency contact: Primary Care Provider and Surgeon Call non-emergency contact if: you have any medication questions and your symptoms worsen Follow-up/Referrals: Jose Oliveira MD [Primary Care Provider] - Jesús Barclay DO [Surgeon] - Diet: Regular Fluids: 2000ml (8 cups) Addtl Attending Provider Instructions: You were admitted to [facility] [address] due to an episode of vasovagal syncope During your hospitalization further cardiac testing was pursued due to concern of possible cardiogenic syncope in addition to cardiology being consulted; a TTE did not show any significant interval change from the last study performed in 2019. While maintained on continuous cardiac telemetry, while transitioning from bed to a bedside commode, he did experience an episode of atrial fibrillation with rapid ventricular response that did not result in syncope however was associated with lightheadedness, diaphoresis, and emesis without bilious or bloody emesis. He had spontaneous resolution of the symptoms within a few minutes of its initial onset. EKG at that time did confirm atrial fibrillation with rapid ventricular response without any noted ischemic changes. After discussion with cardiology, your metoprolol succinate was discontinued and instead initiated metoprolol to tartrate 25 mg p.o. twice daily. As a consequence of your fall associated with your syncopal episode, you sustained a distal right fibular and right great toe proximal phalangeal fractures. There were no acute interventions planned or recommended during hospitalization by orthopedic surgery with recommended close follow-up. The patient is recommended to remain nonweightbearing involving this extremity. Pending Studies at Discharge: No Stand-Alone Forms: My [facility] Skilled Items Patient informed of condition?: Yes DNR: No Discharge Level of Care: Acute rehab Communicable Disease: No Discharge Prognosis: Improving Lines: None Urinary Catheter: No Medications and DC Order Prescriptions: New acetaminophen [Tylenol Extra Strength] 500 mg Tablet 1,000 mg PO Q8H 30 Days Qty: 180 0RF metoprolol tartrate 25 mg Tablet 25 mg PO BID 30 Days Qty: 60 0RF Continued warfarin 2 mg tablet See Rx Instructions PO UD Rx Instructions: 4mg q Friday, 2mg x 6 days per [facility] orally use as directed; triamcinolone acetonide 0.1 % cream 1 applic topical BID PRN (Reason: Other) lidocaine [Aspercreme (lidocaine)] 4 % adhesive patch,medicated 1 patch topical DAILY PRN (Reason: Pain) potassium 99 mg tablet 99 mg PO QDL Patient Comments: after lunch polyethylene glycol 3350 [Miralax] 17 gram/dose powder 17 g PO BID PRN (Reason: constipation) simethicone 125 mg capsule 125 mg PO DAILY Rx Instructions: as needed for gastric reflux Systane Ultra 0.4-0.3 % drops 1 drp ophthalmic (eye) DAILY PRN (Reason: Dry Eye(S)) Rx Instructions: as needed for dry eyes lansoprazole 30 mg capsule,delayed release(DR/EC) 30 mg PO BID Qty: 180 3RF amlodipine 2.5 mg tablet 2.5 mg PO BID Qty: 180 3RF Rx Instructions: TAKE ONE TABLET BY MOUTH 2 TIMES A DAY levothyroxine 175 mcg tablet 175 mcg PO QAM Qty: 90 3RF Rx Instructions: TAKE ONE TABLET BY MOUTH EVERY DAY finasteride 5 mg tablet 5 mg PO DAILY Qty: 90 3RF Metamucil 3.4 gram/5.4 gram powder 1 tbs PO BID Qty: 660 0RF Rx Instructions: mix into at least 8 oz of water or juice before administering primidone 50 mg tablet 75 mg PO TID Rx Instructions: TAKE ONE TABLET BY MOUTH 3 TIMES A DAY Held simvastatin 20 mg tablet 0 mg PO QPM Hold Instructions: Resume on 05/05/25. Patient Comments: 04/06- per , they have medication on hold for the next 29 days. Discontinued acetaminophen 500 mg tablet 500 mg PO Q6H PRN (Reason: Pain) metoprolol succinate 25 mg tablet extended release 24 hr 25 mg PO QAM Qty: 90 3RF Discharge Orders: Discharge Order (Routine); Ordered 04/08/25 Ordered By: Jose Daniel De La Paz/Other Patient Handouts: AFib Admission Data Admit Date/Time: 04/06/25 12:54 Attending Provider: Jose Daniel Velez Admit Provider: Jose Daniel Velez Primary Care Provider: Jose Oliveira Other Providers: Jesús Barclay; Jose Daniel Velez; Evans Barclay; [facility] Other Interventions: Discharge Summary Assessment (RN) Last Done: 04/08/25 14:23 Hospital Stay Data Consultations 04/06/25 12:47 ED Decision to Admit Stat 04/06/25 12:54 Consult Orthopedic Surgery Routine 04/07/25 09:54 Consult Cardiology Routine Diagnostic Imagining Performed 04/06/25 08:36 CT head/brain wo con Stat Pending Results Patient Have Any Pending Studies at Discharge: No Discharge Instructions Given to Patient (Per Discharging Provider) You were admitted to [facility] [address] due to an episode of vasovagal syncope During your hospitalization further cardiac testing was pursued due to concern of possible cardiogenic syncope in addition to cardiology being consulted; a TTE did not show any significant interval change from the last study performed in 2019. While maintained on continuous cardiac telemetry, while transitioning from bed to a bedside commode, he did experience an episode of atrial fibrillation with rapid ventricular response that did not result in syncope however was associated with lightheadedness, diaphoresis, and emesis without bilious or bloody emesis. He had spontaneous resolution of the symptoms within a few minutes of its initial onset. EKG at that time did confirm atrial fibrillation with rapid ventricular response without any noted ischemic changes. After discussion with cardiology, your metoprolol succinate was discontinued and instead initiated metoprolol to tartrate 25 mg p.o. twice daily. As a consequence of your fall associated with your syncopal episode, you sustained a distal right fibular and right great toe proximal phalangeal fractures. There were no acute interventions planned or recommended during hospitalization by orthopedic surgery with recommended close follow-up. The patient is recommended to remain nonweightbearing involving this extremity. Total Time Total Time Spent Total Time Spent (In Minutes): I personally spent 60 minutes in the coordination of the patient's discharge in cluding bedside counselling, physical exam, and medication reconciliation Coding Level of Care Code 79452 INP/OBS DISCH >30 MIN Diagnoses Syncope, unspecified syncope type R55 Syncope type: unspecified Other closed fracture of distal end of right fibula, initial encounter S82.831A Encounter type: initial encounter Fibula location: distal Fracture morphology: other fracture Fracture type: closed Laterality: right Closed displaced fracture of proximal phalanx of right great toe, initial encounter S92.411A Encounter type: initial encounter Fracture alignment: displaced Fracture type: closed Laterality: right Phalanx: proximal Toe: great toe Paroxysmal atrial fibrillation I48.0 Atrial fibrillation type: paroxysmal
[2025-04-08] MEDS ORDERED: METOPROLOL TARTRATE 25 MG TAB PO SCH (21:00)
[2025-04-11] MEDS ORDERED: WARFARIN SOD 4 MG TAB PO SCH (16:00)
== END 2025-04-08 15:54 | DRG 310 ==
LOC: ED 08:19 → 2N 12:54